=== PATIENT | female | born 1960 | race Caucasian/White ===

== ENCOUNTER → 2019-02-17 | Outpatient (CLI) | payer BC, MEDICARE ==
--- NOTE | 2019-02-17 19:29 | CT ---
EXAMINATION TYPE: CT abdomen pelvis w con DATE OF EXAM: 02/17/2019 HISTORY: abdominal pain and distention. Bloody stools. CT DLP: 1611.2mGycm Automated Exposure Control for Dose Reduction was Utilized. CONTRAST: CT scan of the abdomen and pelvis is performed with IV Contrast, patient injected with 100 mL of Isov ue 300. COMPARISON: None. FINDINGS: LUNG BASES: Slight right hemidiaphragm elevation is incidentally seen LIVER/GB: Gallbladder is surgically absent. No suspicious masses seen within the liver. PANCREAS: No significant abnormality is seen. SPLEEN: No significant abnormality is seen. ADRENALS: No significant abnormality is seen. KIDNEYS: Kidneys enhance and excrete symmetrically without hydronephrosis. BOWEL: Prominent vasa recta surrounding the colon throughout, most notable on the coronal images in t he sigmoid and ascending colon as well as surrounding the cecum. Mild multifocal follow-up thickening of the ascending colon is seen. Air-fluid levels are seen throughout the colon indicative of colonic malabsorption/diarrhea. Multifocal hypodensity eccentric lesions are seen within the rectum measurin g 9 mm on series 3 image 83 on the right and on the left subtly posterior laterally on series 3 image 77 measuring 9 mm also. There is confluence of stool and contrast in the hepatic flexure making excl usion of mass difficult. LYMPH NODES: No greater than 1cm abdominal or pelvic lymph nodes are appreciated. Few nonenlarged lym ph nodes adjacent to the sigmoid colon such as on image 64 in the left pelvis are seen and may be ipppa ctive. OSSEOUS STRUCTURES: Postsurgical changes are seen of the spine with extensive heterotopic ossificatio n after fusion of the an S-shaped scoliosis. No acute osseous pathology is seen. IMPRESSION: Findings suggest mild acute uncomplicated pancolitis. Consider early C. difficile given the diffuse i nvolvement. High density within the rectum could represent small polyps or stool products as there is lack of oral contrast within the rectum. Colonoscopy is recommended after resolution of symptoms. It is difficult to exclude mass of the hepatic flexure versus inspissated stool as there is confluence of stool and contrast at this location.
== END ==
LOC: RADCTMAIN 17:05
PROVIDERS: ATTEND Family Medicine
DX: R10.30 Lower abdominal pain, unspecified (principal); K92.1 Melena
CPT/HCPCS: 74177; 36415; Q9967

== ENCOUNTER 2019-02-18 16:12 | Inpatient (IN) | payer BC, MEDICARE ==
[2019-02-18] MEDS ORDERED: SODIUM CHLORIDE 0.9% 1,000 ML IV ONE (16:44)
[2019-02-18] MEDS ORDERED: ONDANSETRON 4 MG/2 ML VIAL IVP STA (16:45)
--- NOTE | 2019-02-18 16:45 | ED ---
Abdominal Pain HPI - General Source: patient Mode of arrival: ambulatory Limitations: no limitations <Roseann Cheney - Last Filed: 02/18/19 20:55> <Palmira Hurtado - Last Filed: 02/20/19 14:48> - General Chief Complaint: Abdominal Pain Stated Complaint: Dehydration Time Seen by Provider: 02/18/19 16:37 - History of Present Illness Initial Comments: 58yo female with history of fibromyalgia, RA presenting for evaluation emergency department for persistent abdominal pain and vomiting/diarrhea x 1 week. Patient states she has had vomiting times a week. She states she's had diffuse abdominal cramping. Patient states she had outpatient CT performed revealing information that: And was sent to the emergency department for further evaluation and possible admission. Patient states she has had diarrhea, describ es as watery and frequent. Patient states she is concerned about dehydration. Patient denies any melanotic or blood in her stools. Patient denies any hematemesis. Patient denies any fevers, this pain shortness of breath back pain dysuria urgency frequency hematuria. Patient denies any other complaints remaining review of system negative. (Roseann Cheney) - Related Data Home Medications Medication Instructions Recorded Confirmed Baclofen [Lioresal] 10 mg PO HS 02/18/19 02/18/19 DULoxetine HCL [Cymbalta] 60 mg PO DAILY 02/18/19 02/18/19 Dicyclomine HCl 10 mg PO TID 02/18/19 02/18/19 Eluxadoline [Viberzi] 100 mg PO DAILY 02/18/19 02/18/19 Famotidine [Pepcid] 20 mg PO BID 02/18/19 02/18/19 Folic Acid 1 mg PO DAILY 02/18/19 02/18/19 HYDROcodone/APAP 10-325MG [[place] 1 tab PO Q6HR PRN 02/18/19 02/18/19 10-325] Hydrochlorothiazide [Hydrodiuril] 25 mg PO DAILY 02/18/19 02/18/19 Methocarbamol [Robaxin] 750 mg PO DAILY 02/18/19 02/18/19 Metoprolol Tartrate 25 mg PO BID 02/18/19 02/18/19 Pantoprazole Sodium [Protonix] 40 mg PO DAILY 02/18/19 02/18/19 Pramipexole [Mirapex] 0.25 mg PO HS 02/18/19 02/18/19 Pregabalin [Lyrica] 225 mg PO BID 02/18/19 02/18/19 Zolpidem Tartrate [Ambien Cr] 12.5 mg PO HS PRN 02/18/19 02/18/19 clonazePAM [KlonoPIN] 1 mg PO DAILY 02/18/19 02/18/19 metFORMIN HCL [Glucophage] 500 mg PO BID 02/18/19 02/18/19 tiZANidine HCL [Zanaflex] 4 mg PO DAILY 02/18/19 02/18/19 Allergies Allergy/AdvReac Type Severity Reaction Status Date / Time coconut Allergy Unknown Verified 02/18/19 17:15 latex Allergy Rash/Hives Verified 02/18/19 17:15 wool Allergy Rash/Hives Verified 02/18/19 17:15 Review of Systems ROS Other: All systems not noted in ROS Statement are negative. <Roseann Cheney - Last Filed: 02/18/19 20:55> ROS Other: All systems not noted in ROS Statement are negative. <Palmira Hurtado - Last Filed: 02/20/19 14:48> ROS Statement: Those systems with pertinent positive or pertinent negative responses have been documented in the HPI. Past Medical History Past Medical History: Fibromyalgia, Rheumatoid Arthritis (RA) Additional Past Medical History / Comment(s): diverticultis History of Any Multi-Drug Resistant Organisms: None Reported Past Surgical History: Appendectomy, Back Surgery, Bowel Resection, Hysterectomy Additional Past Surgical History / Comment(s): cataract, bladder sling Past Psychological History: No Psychological Hx Reported Smoking Status: Never smoker Past Alcohol Use History: None Reported Past Drug Use History: None Reported <Roseann Cheney - Last Filed: 02/18/19 20:55> General Exam Limitations: no limitations <Roseann Cheney - Last Filed: 02/18/19 20:55> - General Exam Comments Initial Comments: General: The patient is awake and alert Eye: +3 mm pupils are equal, round and reactive to light, extra-ocular movements are intact. No nystagmus. There is normal conjunctiva bilaterally. No signs of icterus. Ears, nose, mouth and throat: There are moist mucous membranes and no oral lesions. Neck: The neck is supple, there is no tenderness or JVD. Cardiovascular: There is a regular rate and rhythm. No murmur, rub or gallop is appreciated. Respiratory: Lungs are clear to auscultation, respirations are non-labored, breath sounds are equal. No wheezes, stridor, rales, or rhonchi. Gastrointestinal: Soft, non-distended, diffusely tender abdomen without masses or organomegaly noted. There is no rebound or guarding present. Bowel sounds are unremarkable Musculoskeletal: Normal ROM, no tenderness. Strength 5/5. Sensation intact. Radial pulses equal bilaterally 2+. Neurological: A&O x 3. CN II-XII intact grossly intact, There are no obvious motor or sensory deficits. Coordination appears grossly intact. Speech is normal. Skin: Skin is warm and dry and no rashes or lesions are noted. Psychiatric: Cooperative, appropriate mood & affect, normal judgment. (Roseann Cheney) Course Vital Signs 02/18/19 02/18/19 02/18/19 16:23 19:00 19:54 Temperature 98.1 F Pulse Rate 86 72 Respiratory 20 16 Rate Blood Pressure 114/73 124/78 108/68 O2 Sat by Pulse 94 L 98 98 Oximetry 02/18/19 21:18 Temperature 98 F Pulse Rate 68 Respiratory 18 Rate Blood Pressure 114/72 O2 Sat by Pulse 95 Oximetry Medical Decision Making - Lab Data Result diagrams: 02/18/19 16:56 02/18/19 16:56 <Roseann Cheney - Last Filed: 02/18/19 20:55> - Lab Data Result diagrams: 02/20/19 07:03 02/20/19 07:03 <Palmira Hurtado - Last Filed: 02/20/19 14:48> - Medical Decision Making 58-year-old female presenting for evaluation for pancolitis. Patient has pancolitis on CT that was obtained yesterday outpatient. Patient states she continues to have diffuse pain that has been ongoing for the past week. Patient denies any bloody stools. Patient denies any melena. Laboratory studies are stable. Patient appears uncomfortable has been requesting multiple doses of IV analgesics. I discussed the CT findings and mentating provider she recommended admission with getting of antibiotics including Rocephin and Flagyl. Patient also was noted to have hypokalemia at 3.0. Patient was given 20 mg of oral as well as 20 mg of IV potassium. Patient is agreeable to admission stating that she does not feel she can go home. Patient be admitted for intractable pain, IV antibiotics and further evaluation pancolitis. (Roseann Cheney) I was available for consultation in the emergency department. The history and physical exam were done by the midlevel provider. I was consulted for this patients care. I reviewed the case with the midlevel provider and based on their presentation of the patient, I agree with the assessment, medical decision making and plan of care as documented. I evaluated the patient myself. She was admitted to Dr. Dalton with GI to consult. (Palmira Hurtado) - Lab Data Lab Results 02/18/19 02/18/19 02/18/19 Range/Units 15:43 16:56 16:56 WBC 7.2 (3.8-10.6) k/uL RBC 4.93 (3.80-5.40) m/uL Hgb 13.9 (11.4-16.0) gm/dL Hct 41.1 (34.0-46.0) % MCV 83.4 D (80.0-100.0) fL MCH 28.3 (25.0-35.0) pg MCHC 33.9 (31.0-37.0) g/dL RDW 15.0 (11.5-15.5) % Plt Count 346 (150-450) k/uL Neutrophils % 65 % Lymphocytes % 21 % Monocytes % 6 % Eosinophils % 3 % Basophils % 2 % Neutrophils # 4.7 (1.3-7.7) k/uL Lymphocytes # 1.5 (1.0-4.8) k/uL Monocytes # 0.4 (0-1.0) k/uL Eosinophils # 0.2 (0-0.7) k/uL Basophils # 0.2 (0-0.2) k/uL Hypochromasia ESR (0-20) mm/hr Sodium 140 (137-145) mmol/L Potassium 3.0 L (3.5-5.1) mmol/L Chloride 100 (98-107) mmol/L Carbon Dioxide 31 H (22-30) mmol/L Anion Gap 9 mmol/L BUN 13 (7-17) mg/dL Creatinine 0.97 (0.52-1.04) mg/dL Est GFR (CKD-EPI)AfAm 76 (>60 ml/min/1.73 sqM) Est GFR (CKD-EPI)NonAf 66 (>60 ml/min/1.73 sqM) Glucose 101 H (74-99) mg/dL Plasma Lactic Acid Jagdish 1.3 (0.7-2.0) mmol/L Calcium 9.1 (8.4-10.2) mg/dL Total Bilirubin 0.2 (0.2-1.3) mg/dL AST 28 (14-36) U/L ALT 28 (9-52) U/L Alkaline Phosphatase 102 (38-126) U/L Total Protein 7.4 (6.3-8.2) g/dL Albumin 4.2 (3.5-5.0) g/dL Amylase 70 (30-110) U/L Lipase 223 (23-300) U/L Urine Color Urine Appearance (Clear) Urine pH (5.0-8.0) Ur Specific Oxly (1.001-1.035) Urine Protein (Negative) Urine Glucose (UA) (Negative) Urine Ketones (Negative) Urine Blood (Negative) Urine Nitrite (Negative) Urine Bilirubin (Negative) Urine Urobilinogen (<2.0) mg/dL Ur Leukocyte Esterase (Negative) Urine RBC (0-5) /hpf Urine WBC (0-5) /hpf Ur Squamous Epith Cells (0-4) /hpf Hyaline Casts (0-2) /lpf Urine Mucus (None) /hpf Stool Occult Blood (Negative) Stool Lactoferrin (NEGATIVE) C. difficile (EIA) Intrp (Negative) 02/18/19 02/18/19 02/19/19 Range/Units 16:56 17:36 07:26 WBC 4.2 (3.8-10.6) k/uL RBC 4.54 (3.80-5.40) m/uL Hgb 12.7 (11.4-16.0) gm/dL Hct 38.4 (34.0-46.0) % MCV 84.6 (80.0-100.0) fL MCH 28.1 (25.0-35.0) pg MCHC 33.2 (31.0-37.0) g/dL RDW 14.7 (11.5-15.5) % Plt Count 306 (150-450) k/uL Neutrophils % 44 % Lymphocytes % 40 % Monocytes % 8 % Eosinophils % 5 % Basophils % 1 % Neutrophils # 1.8 (1.3-7.7) k/uL Lymphocytes # 1.7 (1.0-4.8) k/uL Monocytes # 0.3 (0-1.0) k/uL Eosinophils # 0.2 (0-0.7) k/uL Basophils # 0.0 (0-0.2) k/uL Hypochromasia Slight ESR 17 (0-20) mm/hr Sodium (137-145) mmol/L Potassium (3.5-5.1) mmol/L Chloride (98-107) mmol/L Carbon Dioxide (22-30) mmol/L Anion Gap mmol/L BUN (7-17) mg/dL Creatinine (0.52-1.04) mg/dL Est GFR (CKD-EPI)AfAm (>60 ml/min/1.73 sqM) Est GFR (CKD-EPI)NonAf (>60 ml/min/1.73 sqM) Glucose (74-99) mg/dL Plasma Lactic Acid Jagdish (0.7-2.0) mmol/L Calcium (8.4-10.2) mg/dL Total Bilirubin (0.2-1.3) mg/dL AST (14-36) U/L ALT (9-52) U/L Alkaline Phosphatase (38-126) U/L Total Protein (6.3-8.2) g/dL Albumin (3.5-5.0) g/dL Amylase (30-110) U/L Lipase (23-300) U/L Urine Color Light Red Urine Appearance Clear (Clear) Urine pH 5.5 (5.0-8.0) Ur Specific Oxly 1.031 (1.001-1.035) Urine Protein 1+ H (Negative) Urine Glucose (UA) Negative (Negative) Urine Ketones 1+ H (Negative) Urine Blood Negative (Negative) Urine Nitrite Negative (Negative) Urine Bilirubin Negative (Negative) Urine Urobilinogen 3.0 (<2.0) mg/dL Ur Leukocyte Esterase Small H (Negative) Urine RBC 1 (0-5) /hpf Urine WBC 1 (0-5) /hpf Ur Squamous Epith Cells 2 (0-4) /hpf Hyaline Casts 10 H (0-2) /lpf Urine Mucus Few H (None) /hpf Stool Occult Blood (Negative) Stool Lactoferrin (NEGATIVE) C. difficile (EIA) Intrp Negative (Negative) 02/19/19 02/19/19 02/19/19 Range/Units 07:26 12:27 14:00 WBC (3.8-10.6) k/uL RBC (3.80-5.40) m/uL Hgb (11.4-16.0) gm/dL Hct (34.0-46.0) % MCV (80.0-100.0) fL MCH (25.0-35.0) pg MCHC (31.0-37.0) g/dL RDW (11.5-15.5) % Plt Count (150-450) k/uL Neutrophils % % Lymphocytes % % Monocytes % % Eosinophils % % Basophils % % Neutrophils # (1.3-7.7) k/uL Lymphocytes # (1.0-4.8) k/uL Monocytes # (0-1.0) k/uL Eosinophils # (0-0.7) k/uL Basophils # (0-0.2) k/uL Hypochromasia ESR (0-20) mm/hr Sodium 143 (137-145) mmol/L Potassium 3.7 (3.5-5.1) mmol/L Chloride 103 (98-107) mmol/L Carbon Dioxide 35 H (22-30) mmol/L Anion Gap 5 mmol/L BUN 8 (7-17) mg/dL Creatinine 0.79 (0.52-1.04) mg/dL Est GFR (CKD-EPI)AfAm >90 (>60 ml/min/1.73 sqM) Est GFR (CKD-EPI)NonAf 85 (>60 ml/min/1.73 sqM) Glucose 90 (74-99) mg/dL Plasma Lactic Acid Jagdish (0.7-2.0) mmol/L Calcium 8.6 (8.4-10.2) mg/dL Total Bilirubin 0.3 (0.2-1.3) mg/dL AST 23 (14-36) U/L ALT 23 (9-52) U/L Alkaline Phosphatase 79 (38-126) U/L Total Protein 6.2 L (6.3-8.2) g/dL Albumin 3.4 L (3.5-5.0) g/dL Amylase (30-110) U/L Lipase (23-300) U/L Urine Color Light Yellow Urine Appearance Clear (Clear) Urine pH 6.0 (5.0-8.0) Ur Specific Oxly 1.006 (1.001-1.035) Urine Protein Negative (Negative) Urine Glucose (UA) Negative (Negative) Urine Ketones Negative (Negative) Urine Blood Negative (Negative) Urine Nitrite Negative (Negative) Urine Bilirubin Negative (Negative) Urine Urobilinogen <2.0 (<2.0) mg/dL Ur Leukocyte Esterase Negative (Negative) Urine RBC (0-5) /hpf Urine WBC (0-5) /hpf Ur Squamous Epith Cells (0-4) /hpf Hyaline Casts (0-2) /lpf Urine Mucus (None) /hpf Stool Occult Blood Negative (Negative) Stool Lactoferrin (NEGATIVE) C. difficile (EIA) Intrp (Negative) 02/19/19 Range/Units 14:00 WBC (3.8-10.6) k/uL RBC (3.80-5.40) m/uL Hgb (11.4-16.0) gm/dL Hct (34.0-46.0) % MCV (80.0-100.0) fL MCH (25.0-35.0) pg MCHC (31.0-37.0) g/dL RDW (11.5-15.5) % Plt Count (150-450) k/uL Neutrophils % % Lymphocytes % % Monocytes % % Eosinophils % % Basophils % % Neutrophils # (1.3-7.7) k/uL Lymphocytes # (1.0-4.8) k/uL Monocytes # (0-1.0) k/uL Eosinophils # (0-0.7) k/uL Basophils # (0-0.2) k/uL Hypochromasia ESR (0-20) mm/hr Sodium (137-145) mmol/L Potassium (3.5-5.1) mmol/L Chloride (98-107) mmol/L Carbon Dioxide (22-30) mmol/L Anion Gap mmol/L BUN (7-17) mg/dL Creatinine (0.52-1.04) mg/dL Est GFR (CKD-EPI)AfAm (>60 ml/min/1.73 sqM) Est GFR (CKD-EPI)NonAf (>60 ml/min/1.73 sqM) Glucose (74-99) mg/dL Plasma Lactic Acid Jagdish (0.7-2.0) mmol/L Calcium (8.4-10.2) mg/dL Total Bilirubin (0.2-1.3) mg/dL AST (14-36) U/L ALT (9-52) U/L Alkaline Phosphatase (38-126) U/L Total Protein (6.3-8.2) g/dL Albumin (3.5-5.0) g/dL Amylase (30-110) U/L Lipase (23-300) U/L Urine Color Urine Appearance (Clear) Urine pH (5.0-8.0) Ur Specific Oxly (1.001-1.035) Urine Protein (Negative) Urine Glucose (UA) (Negative) Urine Ketones (Negative) Urine Blood (Negative) Urine Nitrite (Negative) Urine Bilirubin (Negative) Urine Urobilinogen (<2.0) mg/dL Ur Leukocyte Esterase (Negative) Urine RBC (0-5) /hpf Urine WBC (0-5) /hpf Ur Squamous Epith Cells (0-4) /hpf Hyaline Casts (0-2) /lpf Urine Mucus (None) /hpf Stool Occult Blood (Negative) Stool Lactoferrin POSITIVE H (NEGATIVE) C. difficile (EIA) Intrp (Negative) Disposition Is patient prescribed a controlled substance at d/c from ED?: No Time of Disposition: 20:50 Decision to Admit Reason: Admit from EC Decision Date: 02/18/19 Decision Time: 20:50 <Roseann Cheney - Last Filed: 02/18/19 20:55> <Palmira Hurtado - Last Filed: 02/20/19 14:48> Clinical Impression: Pancolitis, Intractable abdominal pain Disposition: ADMITTED IP TO THIS [facility] Condition: Stable
[2019-02-18] MEDS ORDERED: MORPHINE SULFATE 2 MG/ML SYRINGE IVP STA (17:14)
[2019-02-18 17:17] LABS: Basophils # (A) 0.2 k/uL (0-0.2); Basophils % (A) 2 %; Eosinophils # (A) 0.2 k/uL (0-0.7); Eosinophils % (A) 3 %; HCT 41.1 % (34.0-46.0); HGB 13.9 gm/dL (11.4-16.0); Lymphocytes # (A) 1.5 k/uL (1.0-4.8); Lymphocytes % (A) 21 %; MCH 28.3 pg (25.0-35.0); MCHC 33.9 g/dL (31.0-37.0); Mean Platelet Volume 6.4; Monocytes # (A) 0.4 k/uL (0-1.0); Monocytes % (A) 6 %; Neutrophils # (A) 4.7 k/uL (1.3-7.7); Neutrophils % (A) 65 %; Platelet Count 346 k/uL (150-450); RBC 4.93 m/uL (3.80-5.40); WBC 7.2 k/uL (3.8-10.6)
[2019-02-18 17:23] LABS: Appearance,Urine Clear (Clear); Bilirubin,Urine Negative (Negative); Blood,Urine Negative (Negative); Color,Urine Light Red; Glucose,Urine (UA) Negative (Negative); Hyaline Casts,Urine 10 /lpf (0-2); Ketones,Urine 1+ (Negative); Leukocyte Esterase,Urine Small (Negative); Mucus,Urine Few /hpf; Nitrite,Urine Negative (Negative); PH, Urine 5.5 (5.0-8.0); Protein,Urine 1+ (Negative); RBC,Urine 1 /hpf (0-5); Specific Gravity,Urine 1.031 (1.001-1.035); Squamous Epithelial Cell,Urine 2 /hpf (0-4); WBC,Urine 1 /hpf (0-5)
[2019-02-18 17:24] LABS: MCV 83.4 fL (80.0-100.0)
[2019-02-18 17:30] LABS: Albumin 4.2 g/dL (3.5-5.0); Calcium 9.1 mg/dL (8.4-10.2); Total Bilirubin 0.2 mg/dL (0.2-1.3); Total Protein 7.4 g/dL (6.3-8.2)
[2019-02-18] MEDS ORDERED: POTASSIUM CHLORIDE ER 20 MEQ TAB.ER PO STA (18:08)
[2019-02-18] MEDS ORDERED: POTASSIUM CHLORIDE 20 MEQ in WATER FOR INJECTION 1 100ML.BAG IVPB STA (19:04)
[2019-02-18] MEDS ORDERED: MORPHINE SULFATE 4 MG/ML SYRINGE IVP STA (19:24)
[2019-02-18] MEDS ORDERED: metroNIDAZOLE-NS PMX 500 MG in SALINE 1 100ML.BAG IVPB STA (20:04)
[2019-02-18] MEDS ORDERED: NALOXONE 0.4 MG/ML 1 ML VIAL IV PRN (20:56)
[2019-02-18] MEDS: SODIUM CHLORIDE 0.9% 1,000 ML IV SCH (21:17)
[2019-02-18 22:18] VITALS: BMI 35.4
[2019-02-18] MEDS: DICYCLOMINE 10 MG CAP PO SCH (23:14)
[2019-02-18] MEDS: ACETAMINOPHEN TAB 500 MG TAB PO PRN (23:14)
[2019-02-18] MEDS: ZOLPIDEM 10 MG TAB PO SCH (23:14)
[2019-02-18] MEDS: FAMOTIDINE 20 MG TAB PO SCH (23:14)
[2019-02-18] MEDS: BACLOFEN 10 MG TAB PO SCH (23:14)
[2019-02-18] MEDS: PRAMIPEXOLE 0.25 MG TAB PO SCH (23:15)
[2019-02-18] MEDS: METOPROLOL TARTRATE 25 MG TAB PO SCH (23:15)
[2019-02-18] MEDS: PREGABALIN 75 MG CAP PO SCH (23:15)
[2019-02-18] MEDS: FOLIC ACID 1 MG TAB PO SCH (23:15)
[2019-02-18] MEDS ORDERED: clonazePAM 1 MG TAB PO SCH (23:15)
[2019-02-19] MEDS: MORPHINE SULFATE 4 MG/ML SYRINGE IV PRN ×5 (03:38→21:50)
[2019-02-19] MEDS: SODIUM CHLORIDE 0.9% 1,000 ML IV SCH (03:43)
[2019-02-19] MEDS: DICYCLOMINE 10 MG CAP PO SCH ×3 (07:36→21:49)
[2019-02-19] MEDS: METOPROLOL TARTRATE 25 MG TAB PO SCH ×2 (07:37→20:49)
[2019-02-19] MEDS: PREGABALIN 75 MG CAP PO SCH ×2 (07:37→21:31)
[2019-02-19] MEDS: FOLIC ACID 1 MG TAB PO SCH (07:37)
[2019-02-19] MEDS: FAMOTIDINE 20 MG TAB PO SCH ×2 (07:37→20:49)
[2019-02-19] MEDS: HYDROCHLOROTHIAZIDE 25 MG TAB PO SCH (07:37)
[2019-02-19] MEDS: Eluxadoline [Viberzi] 100 MG PO SCH (07:48)
[2019-02-19 07:59] LABS: Basophils % (A) 1 %; Eosinophils # (A) 0.2 k/uL (0-0.7); Eosinophils % (A) 5 %; HCT 38.4 % (34.0-46.0); HGB 12.7 gm/dL (11.4-16.0); Hypochromasia Slight; Lymphocytes # (A) 1.7 k/uL (1.0-4.8); Lymphocytes % (A) 40 %; MCH 28.1 pg (25.0-35.0); MCHC 33.2 g/dL (31.0-37.0); MCV 84.6 fL (80.0-100.0); Mean Platelet Volume 5.7; Monocytes # (A) 0.3 k/uL (0-1.0); Monocytes % (A) 8 %; Neutrophils # (A) 1.8 k/uL (1.3-7.7); Neutrophils % (A) 44 %; Platelet Count 306 k/uL (150-450); RBC 4.54 m/uL (3.80-5.40); RDW 14.7 % (11.5-15.5); WBC 4.2 k/uL (3.8-10.6)
[2019-02-19 08:03] LABS: ALT 23 U/L (9-52); AST 23 U/L (14-36); African American GFR (CKD) >90 (>60 ml/min/1.73 sqM); Albumin 3.4 g/dL (3.5-5.0); Alkaline Phosphatase 79 U/L (38-126); Anion Gap 5 mmol/L; Blood Urea Nitrogen 8 mg/dL (7-17); Calcium 8.6 mg/dL (8.4-10.2); Carbon Dioxide 35 mmol/L (22-30); Chloride 103 mmol/L (98-107); Glucose 90 mg/dL (74-99); Potassium 3.7 mmol/L (3.5-5.1); Sodium 143 mmol/L (137-145); Total Bilirubin 0.3 mg/dL (0.2-1.3); Total Protein 6.2 g/dL (6.3-8.2)
[2019-02-19] MEDS ORDERED: METHOCARBAMOL 750 MG TAB PO SCH (09:00)
[2019-02-19] MEDS ORDERED: metFORMIN 500 MG TAB PO SCH (09:00)
[2019-02-19] MEDS ORDERED: tiZANidine 4 MG TAB PO SCH (09:00)
[2019-02-19] MEDS ORDERED: DULoxetine HCL 60 MG CAPSULE.DR PO SCH (09:00)
[2019-02-19] MEDS ORDERED: PANTOPRAZOLE 40 MG TABLET PO SCH (09:00)
[2019-02-19 09:41] LABS: Erythrocyte Sedimentation Rate 17 mm/hr (0-20)
--- NOTE | 2019-02-19 10:55 | P.CONS ---
History of Present Illness - Reason for Consult Consult date: 02/19/19 Pancolitis Requesting physician: Ilda Dalton - Chief Complaint Abdominal pain - History of Present Illness 58-year-old female admitted with acute abdominal pain nausea vomiting diarrhea 2 week. Abdominal pain is crampy diffusely across the mid to lower abdomen. Diarrhea dark gritty like upeards to 20-25x day. Denies hematemesis hematochezia or melena. CT A/P 02/17/2019 reported mild acute uncomplicated pancolitis. High density within the rectum could represent small polyps or stool products lack of oral contrast within the rectum. Difficult to exclude mass in the hepatic flexure versus instituted dictated stool as there is confluence of stool and contrast at this location. [facility] familial colon cancer brother in his early 50s in father in his 80s. Last colonoscopy 2-3 years ago out of town by /[place]; 8 polyps removed she was advised for repeat screening last year she has not since rescheduled. C. diff negative. Still reporting diffuse lower abdominal cramping tenderness. She had 4 BMs x 12 hours without blood. White count 7.2. Hemoglobin 13.9. Potassium 3. BUN 13. Creatinine 0.9. LFTs within normal limits. Review of Systems Constitutional: Denies fever, chills, sweats, weight gain, or loss. HEENT: Negative for migraines, blurred vision or loss, earaches, drainage, tinni tus, oral mucosal lesions, dysphagia, or odynophagia. CARDIAC: Negative for chest pain, arrhythmias, or palpitation. RESPIRATORY: Negative for shortness of breath, hemoptysis, cough, or sputum production. GI: See HPI for pertinent findings. : Negative for hematuria, urgency, frequency, polyuria, or dysuria. GYNc: Denies possibility of . Negative vaginal discharge. MUSCULOSKELETAL: Negative for muscle aches, swelling, arthritis, and arthralgias. NEUROLOGIC: Negative for stroke or TIA. ENDOCRINE: Negative for thyroid problems. SKIN: Negative for rash or itching. PSYCHIATRIC: Negative history for depression and anxiety Past Medical History Past Medical History: Fibromyalgia, GERD/Reflux, Rheumatoid Arthritis (RA) Additional Past Medical History / Comment(s): diverticultis History of Any Multi-Drug Resistant Organisms: C-DIFF Year Discovered:: 02/17/2018 MDRO Source:: stool Past Surgical History: Appendectomy, Back Surgery, Cholecystectomy, Hysterectomy Additional Past Surgical History / Comment(s): cataract, bladder sling Past Anesthesia/Blood Transfusion Reactions: No Reported Reaction Past Psychological History: No Psychological Hx Reported Smoking Status: Former smoker Past Alcohol Use History: None Reported Past Drug Use History: None Reported - Past Family History Father Family Medical History: Cancer Additional Family Medical History / Comment(s): colon cancer Brother(s) Family Medical History: Cancer Additional Family Medical History / Comment(s): colon cancer Mother Family Medical History: Cancer Additional Family Medical History / Comment(s): metastatic lung cancer Medications and Allergies Home Medications Medication Instructions Recorded Confirmed Type Baclofen [Lioresal] 10 mg PO HS 02/18/19 02/18/19 History DULoxetine HCL [Cymbalta] 60 mg PO DAILY 02/18/19 02/18/19 History Dicyclomine HCl 10 mg PO TID 02/18/19 02/18/19 History Eluxadoline [Viberzi] 100 mg PO DAILY 02/18/19 02/18/19 History Famotidine [Pepcid] 20 mg PO BID 02/18/19 02/18/19 History Folic Acid 1 mg PO DAILY 02/18/19 02/18/19 History HYDROcodone/APAP 10-325MG [[place] 1 tab PO Q6HR PRN 02/18/19 02/18/19 History 10-325] Hydrochlorothiazide [Hydrodiuril] 25 mg PO DAILY 02/18/19 02/18/19 History Methocarbamol [Robaxin] 750 mg PO DAILY 02/18/19 02/18/19 History Metoprolol Tartrate 25 mg PO BID 02/18/19 02/18/19 History Pantoprazole Sodium [Protonix] 40 mg PO DAILY 02/18/19 02/18/19 History Pramipexole [Mirapex] 0.25 mg PO HS 02/18/19 02/18/19 History Pregabalin [Lyrica] 225 mg PO BID 02/18/19 02/18/19 History Zolpidem Tartrate [Ambien Cr] 12.5 mg PO HS PRN 02/18/19 02/18/19 History clonazePAM [KlonoPIN] 1 mg PO DAILY 02/18/19 02/18/19 History metFORMIN HCL [Glucophage] 500 mg PO BID 02/18/19 02/18/19 History tiZANidine HCL [Zanaflex] 4 mg PO DAILY 02/18/19 02/18/19 History Allergies Allergy/AdvReac Type Severity Reaction Status Date / Time coconut Allergy Unknown Verified 02/18/19 17:15 latex Allergy Rash/Hives Verified 02/18/19 17:15 wool Allergy Rash/Hives Verified 02/18/19 17:15 Physical Exam Vitals: Vital Signs Temp Pulse Pulse Resp BP BP Pulse Ox 02/19/19 05:09 97.6 F 63 18 118/60 96 02/18/19 22:16 97.6 F 69 18 122/66 95 02/18/19 21:18 98 F 68 18 114/72 95 02/18/19 19:54 108/68 98 02/18/19 19:00 72 16 124/78 98 02/18/19 16:23 98.1 F 86 20 114/73 94 L Intake and Output 02/18/19 02/19/19 02/19/19 22:59 06:59 14:59 Other: # Voids 1 Weight 90.718 kg General appearance: The patient is alert, oriented, in no acute distress. HET: Head is normocephalic and atraumatic. Pupils are equal and reactive. Oropharynx is clear without lesions. Neck: Supple without lymphadenopathy. Trachea midline. Heart: S1 S2. Regular rate and rhythm. Lungs: No crackles or wheezes are heard. Abdomen: Soft, tenderness in the bilateral lower abdomen, nondistended with bowel sounds. No peritoneal signs. No palpable organomegaly or masses. Extremities: Normal skin color and turgor. No cyanosis, rash, ulceration, clubbing, or edema. Radial and pedal pulses are 2/4 bilaterally. Neurological: No focal deficits. Strength and sensation are grossly intact. Results CBC & Chem 7: 02/19/19 07:26 02/19/19 07:26 Labs: Abnormal Lab Results - Last 24 Hours (Table) 02/18/19 02/18/19 Range/Units 16:56 16:56 Potassium 3.0 L (3.5-5.1) mmol/L Carbon Dioxide 31 H (22-30) mmol/L Glucose 101 H (74-99) mg/dL Urine Protein 1+ H (Negative) Urine Ketones 1+ H (Negative) Ur Leukocyte Esterase Small H (Negative) Hyaline Casts 10 H (0-2) /lpf Urine Mucus Few H (None) /hpf CT scan - abdomen: report reviewed (Dr. De La Cruz) Assessment and Plan (1) Abdominal pain Narrative/Plan: 58 year old female with two-week history of acute nonbloody nausea vomiting diarrhea abdominal pain. CT abdomen and pelvis 02/17/2019 reported uncompli cated mild pancolitis however underlying mass of the hepatic flexure versus inspissated stool cannot be excluded. Colonoscopy 2-3 years ago a polyps removed per patient history. Patient was due for repeat colonoscopy 1 year ago. Current Visit: Yes Status: Acute Code(s): R10.9 - UNSPECIFIED ABDOMINAL PAIN SNOMED Code(s): 61149182 (2) Nausea vomiting and diarrhea Current Visit: Yes Status: Acute Code(s): R11.2 - NAUSEA WITH VOMITING, UNSPECIFIED; R19.7 - DIARRHEA, UNSPECIFIED SNOMED Code(s): 0276812 (3) Pancolitis Current Visit: Yes Status: Acute Code(s): K51.00 - ULCERATIVE (CHRONIC) PANCOLITIS WITHOUT COMPLICATIONS SNOMED Code(s): 115961141 (4) Family hx of colon cancer Current Visit: Yes Status: Acute Code(s): Z80.0 - FAMILY HISTORY OF MALIGNANT NEOPLASM OF DIGESTIVE ORGANS SNOMED Code(s): 702326193 Plan: 1. Supportive measures. Broad-spectrum antibiotics. GI prophylaxis. Stool studies. EGD/colonoscopy tomorrow. We'll continue to follow with you. The senior market intelligence consultant has discussed the risks, benefits and alternative therapies for the above-mentioned procedure and for both sedation/analgesia as well as necessary blood product administration, if indicated, as they pertain to this patient. The patient has indicated understanding and acceptance of the risks and procedures discussed. Thank you for this kind referral and the opportunity to participate in the care of your patient. This consultation was discussed with Dr. De La Cruz. The impression and plan of care have been directed as dictated.
[2019-02-19] MEDS: ACETAMINOPHEN TAB 500 MG TAB PO PRN (11:32)
[2019-02-19] MEDS ORDERED: BISACODYL 5 MG TABLET.DR PO STA (11:32)
--- NOTE | 2019-02-19 12:06 | P.HPIM ---
History of Present Illness H&P Date: 02/19/19 Chief Complaint: Abdominal pain with diarrhea and vomiting 2 weeks This is a 58-year-old female, patient of Dr. Cortez. She has a known past medical history of fibroid myalgia, rheumatoid arthritis, diverticulitis, diabetes mellitus, hypertension, GERD, stomach ulcers, uterine and ovarian cancer status post a total hysterectomy, melanoma. Patient has a strong family history of colon cancer both her brother and father had colon cancer. Brother at age 52. Patient presents to the emergency room with abnormal CAT scan findings. CAT scan had showed evidence of mild acute uncomplicated pancolitis. High density within the rectum could represent small polyps or stool products as there is lack of oral contrast within the rectum. It is difficult to exclude mass of the hepatic flexure versus and inspissated stool is there is confluence of stool and contrast at this location. Patient reports symptoms nausea, vomiting and diarrhea 2 weeks. She's having about 20 stools a day. She is reporting the color to be a dark black. And a few days ago she had noted some blood present in the stool. She denies any hematemesis. She reports anytime she eats anything she has both vomiting and diarrhea. She's been started on Rocephin and Flagyl for the pancolitis. GI has been consulted. White count is normal. Hemoglobin has dropped from 13.9-12.7. Sed rate normal at 17. C. diff is negative. Patient denies any chest pain or shortness of breath. Denies any burning with urination. She is using morphine and [place] as needed for pain. She is complaining of a mild headache. Her last EGD and colonoscopy was about 3 years ago there were multiple polyps found, testing was completed at [facility]. Review of Systems Please refer to HPI otherwise unremarkable Past Medical History Past Medical History: Fibromyalgia, GERD/Reflux, Rheumatoid Arthritis (RA) Additional Past Medical History / Comment(s): diverticultis History of Any Multi-Drug Resistant Organisms: C-DIFF Date of last positivie culture/infection: 02/17/2018 MDRO Source:: stool Past Surgical History: Appendectomy, Back Surgery, Cholecystectomy, Hysterectomy Additional Past Surgical History / Comment(s): cataract, bladder sling Past Anesthesia/Blood Transfusion Reactions: No Reported Reaction Past Psychological History: No Psychological Hx Reported Smoking Status: Former smoker Past Alcohol Use History: None Reported Past Drug Use History: None Reported - Past Family History Father Family Medical History: Cancer Additional Family Medical History / Comment(s): colon cancer Brother(s) Family Medical History: Cancer Additional Family Medical History / Comment(s): colon cancer Mother Family Medical History: Cancer Additional Family Medical History / Comment(s): metastatic lung cancer Medications and Allergies Home Medications Medication Instructions Recorded Confirmed Type Baclofen [Lioresal] 10 mg PO HS 02/18/19 02/18/19 History DULoxetine HCL [Cymbalta] 60 mg PO DAILY 02/18/19 02/18/19 History Dicyclomine HCl 10 mg PO TID 02/18/19 02/18/19 History Eluxadoline [Viberzi] 100 mg PO DAILY 02/18/19 02/18/19 History Famotidine [Pepcid] 20 mg PO BID 02/18/19 02/18/19 History Folic Acid 1 mg PO DAILY 02/18/19 02/18/19 History HYDROcodone/APAP 10-325MG [[place] 1 tab PO Q6HR PRN 02/18/19 02/18/19 History 10-325] Hydrochlorothiazide [Hydrodiuril] 25 mg PO DAILY 02/18/19 02/18/19 History Methocarbamol [Robaxin] 750 mg PO DAILY 02/18/19 02/18/19 History Metoprolol Tartrate 25 mg PO BID 02/18/19 02/18/19 History Pantoprazole Sodium [Protonix] 40 mg PO DAILY 02/18/19 02/18/19 History Pramipexole [Mirapex] 0.25 mg PO HS 02/18/19 02/18/19 History Pregabalin [Lyrica] 225 mg PO BID 02/18/19 02/18/19 History Zolpidem Tartrate [Ambien Cr] 12.5 mg PO HS PRN 02/18/19 02/18/19 History clonazePAM [KlonoPIN] 1 mg PO DAILY 02/18/19 02/18/19 History metFORMIN HCL [Glucophage] 500 mg PO BID 02/18/19 02/18/19 History tiZANidine HCL [Zanaflex] 4 mg PO DAILY 02/18/19 02/18/19 History Allergies Allergy/AdvReac Type Severity Reaction Status Date / Time coconut Allergy Unknown Verified 02/18/19 17:15 latex Allergy Rash/Hives Verified 02/18/19 17:15 wool Allergy Rash/Hives Verified 02/18/19 17:15 Physical Exam Vitals: Vital Signs Temp Pulse Pulse Resp BP BP Pulse Ox 02/19/19 05:09 97.6 F 63 18 118/60 96 02/18/19 22:16 97.6 F 69 18 122/66 95 02/18/19 21:18 98 F 68 18 114/72 95 02/18/19 19:54 108/68 98 02/18/19 19:00 72 16 124/78 98 02/18/19 16:23 98.1 F 86 20 114/73 94 L Intake and Output 02/18/19 02/19/19 02/19/19 22:59 06:59 14:59 Other: # Voids 1 Weight 90.718 kg Head normocephalic Neck supple Lungs clear to auscultation bilaterally no wheezing or crackles Heart regular rate and rhythm S1-S2, no rub or gallop Abdomen is soft diffuse lower abdominal tenderness nondistended positive bowel sounds no hepatosplenomegaly Extremities no edema Neuro alert and orientated to 3 Results CBC & Chem 7: 02/19/19 07:26 02/19/19 07:26 Labs: Abnormal Lab Results - Last 24 Hours (Table) 02/18/19 02/18/19 02/19/19 Range/Units 16:56 16:56 07:26 Potassium 3.0 L (3.5-5.1) mmol/L Carbon Dioxide 31 H 35 H (22-30) mmol/L Glucose 101 H (74-99) mg/dL Total Protein 6.2 L (6.3-8.2) g/dL Albumin 3.4 L (3.5-5.0) g/dL Urine Protein 1+ H (Negative) Urine Ketones 1+ H (Negative) Ur Leukocyte Esterase Small H (Negative) Hyaline Casts 10 H (0-2) /lpf Urine Mucus Few H (None) /hpf Thrombosis Risk Factor Assmnt - Choose All That Apply Any of the Below Risk Factors Present?: Yes Each Factor Represents 1 point: Age 41-60 years Other Risk Factors: No Other congenital or acquired thrombophilia - If yes, enter type in comment: No Thrombosis Risk Factor Assessment Total Risk Factor Score: 1 Thrombosis Risk Factor Assessment Level: Low Risk Assessment and Plan Assessment: 1. Abdominal pain with nausea vomiting and diarrhea: Likely secondary to Chu colitis which was noted on CAT scan. Stool studies pending. C. diff negative. Continue with IV fluid hydration. Rocephin and Flagyl have been added. GI consult. They're planning EGD and colonoscopy tomorrow. Check stool for occult blood. Patient reporting black stools as well as a couple of bright red blood stools a few days ago. Add Zofran as needed for nausea and vomiting. Change Protonix to IV 40 mg daily. Continue the morphine and [place] as needed for pain control 2. Pancolitis continue with Rocephin and Flagyl 3. Abdominal CAT scan findings cannot exclude mass of the hepatic flexure versus inspissated stool cannot be excluded. GI following. Patient scheduled for endoscopy tomorrow 4. Hypokalemia: Potassium of 3 on admission likely secondary to diarrhea. Also will check a magnesium level. Potassium is now 3.7 after supplement 5. UTI: Check urine for culture. Continue Rocephin 6. Family history of colon cancer: Both brother and father with colon cancer 7. History of rheumatoid arthritis 8. History of fibromyalgia 7. Diabetes mellitus type 2: Hold metformin during hospitalization. Add sliding scale coverage 8. History of GERD continue Protonix 9. History of stomach ulcers continue Protonix 10. History of uterine and ovarian cancer status post hysterectomy and oophorectomy 11. Essential hypertension continue the hydrochlorothiazide and metoprolol GI prophylaxis Protonix and DVT prophylaxis SCDs Time with Patient: Greater than 30 (Greater than 50% of the total time spent in counseling and coordination of care.I performed an examination of the patient and discussed their management with the physician Barge Captain. I have reviewed the Physician Barge Captain's notes and agree with the documented findings and plan of care)
[2019-02-19] MEDS: INSULIN ASPART (NovoLOG) 100 UNIT/ML VIAL SQ SCH ×3 (13:15→21:30)
[2019-02-19] MEDS: PANTOPRAZOLE 40 MG/10 ML VIAL IVP SCH (13:16)
[2019-02-19 13:29] LABS: Appearance,Urine Clear (Clear); Bilirubin,Urine Negative (Negative); Blood,Urine Negative (Negative); Color,Urine Light Yellow; Glucose,Urine (UA) Negative (Negative); Ketones,Urine Negative (Negative); Leukocyte Esterase,Urine Negative (Negative); Nitrite,Urine Negative (Negative); Protein,Urine Negative (Negative); Specific Gravity,Urine 1.006 (1.001-1.035); Urobilinogen,Urine <2.0 mg/dL (<2.0)
[2019-02-19] MEDS: metroNIDAZOLE-NS PMX 500 MG in SALINE 1 100ML.BAG IVPB SCH ×2 (14:21→20:04)
[2019-02-19] MEDS ORDERED: PEG 3350-NA SULF,BICARB,CL/KCL 4,000 ML BOTTLE PO ONE (15:00)
[2019-02-19] MEDS: ONDANSETRON 4 MG/2 ML VIAL IVP PRN (15:55)
[2019-02-19] MEDS: HYDROcodone/APAP 10-325MG 1 EACH TAB PO PRN (19:36)
[2019-02-19] MEDS: BACLOFEN 10 MG TAB PO SCH (20:49)
[2019-02-19] MEDS: DULoxetine HCL 60 MG CAPSULE.DR PO SCH (20:49)
[2019-02-19] MEDS: METHOCARBAMOL 750 MG TAB PO SCH (20:51)
[2019-02-19] MEDS: tiZANidine 4 MG TAB PO SCH (20:51)
[2019-02-19] MEDS: PRAMIPEXOLE 0.25 MG TAB PO SCH (20:52)
[2019-02-19 21:24] LABS: Glucose,Whole Blood 90 mg/dL (75-99)
[2019-02-19] MEDS: clonazePAM 1 MG TAB PO SCH (21:31)
[2019-02-19] MEDS: ZOLPIDEM 10 MG TAB PO SCH (21:31)
[2019-02-20] MEDS: SODIUM CHLORIDE 0.9% 1,000 ML IV SCH ×2 (00:09→16:53)
[2019-02-20 00:15] LABS: HCT 33.8 % (34.0-46.0); HGB 11.4 gm/dL (11.4-16.0); Hypochromasia Slight; MCH 28.5 pg (25.0-35.0); MCHC 33.7 g/dL (31.0-37.0); MCV 84.5 fL (80.0-100.0); Mean Platelet Volume 5.7; Platelet Count 303 k/uL (150-450); RBC 3.99 m/uL (3.80-5.40); RDW 14.6 % (11.5-15.5); WBC 5.6 k/uL (3.8-10.6)
[2019-02-20] MEDS: metroNIDAZOLE-NS PMX 500 MG in SALINE 1 100ML.BAG IVPB SCH ×2 (03:22→11:50)
[2019-02-20] MEDS: MORPHINE SULFATE 4 MG/ML SYRINGE IV PRN ×4 (03:34→19:51)
[2019-02-20 06:53] LABS: Glucose,Whole Blood 82 mg/dL (75-99)
[2019-02-20] MEDS ORDERED: PROPOFOL 10 MG/ML 20 ML VIAL IV ONE (07:25)
[2019-02-20] MEDS ORDERED: LIDOCAINE 1% INJ 10MG/ML (20 ML MDV) ONE (07:25)
[2019-02-20] MEDS ORDERED: IV FLUID CONTINUATION 1,000 ML IV ONE (07:31)
[2019-02-20 07:44] LABS: ALT 24 U/L (9-52); AST 22 U/L (14-36); African American GFR (CKD) >90 (>60 ml/min/1.73 sqM); Albumin 3.1 g/dL (3.5-5.0); Alkaline Phosphatase 71 U/L (38-126); Anion Gap 3 mmol/L; Blood Urea Nitrogen 4 mg/dL (7-17); Calcium 8.3 mg/dL (8.4-10.2); Carbon Dioxide 34 mmol/L (22-30); Chloride 103 mmol/L (98-107); Glucose 87 mg/dL (74-99); Magnesium 1.9 mg/dL (1.6-2.3); Potassium 3.1 mmol/L (3.5-5.1); Sodium 140 mmol/L (137-145); Total Bilirubin 0.2 mg/dL (0.2-1.3); Total Protein 5.6 g/dL (6.3-8.2)
[2019-02-20] MEDS: INSULIN ASPART (NovoLOG) 100 UNIT/ML VIAL SQ SCH ×2 (07:57→11:43)
[2019-02-20] MEDS: HYDROCHLOROTHIAZIDE 25 MG TAB PO SCH (07:59)
--- NOTE | 2019-02-20 08:08 | P.PCN ---
Date of Procedure: 02/20/19 Procedure(s) Performed: Brief history: Patient is a pleasant 58-year-old white female, admitted hospital with diarrhea of 2 weeks duration. She has been complaining of lower abdominal pain associated with 10-15 the watery bowel movements with blood or mucus. She has to studies for C. diff toxin a was negative. She had CT of abdomen and pelvis done that showed diffuse pancolitis and questionable lesion in the hepatic flexure and hence she is scheduled for an upper endoscopy as well as colonoscopy as a part of evaluation of upper symptoms. Procedure performed: Esophagogastroduodenoscopy with biopsy Colonoscopy Preoperative diagnosis: Anesthesia: MAC Procedure: After informed consent was obtained from the patient was brought into the endoscopy unit and IV sedation was administered by anesthesia under continuous monitoring. Initially upper endoscopy was done. The Olympus GF 160 video endo scope was inserted inserted into the mouth and esophagus intubated without any difficulty and was gradually advanced into the stomach and duodenum and carefully examined. The bulb and second part of the duodenum appeared normal. Biopsies were done from the duodenum to rule out celiac disease. The scope was then withdrawn into the stomach adequately insufflated with air and upon careful examination the antrum had mild gastritis and biopsies were done from this area. The body, cardia and fundus appeared normal. The scope was then withdrawn into the esophagus. The GE junction was located at 40 cm to the incisors. It appeared regular with no erythema erosions or ulcerations. Rest of the esophagus appeared normal. Patient tolerated the procedure well. At this time the patient continued to remain sedation. Initial digital rectal examination was normal. Olympus CF 160 video colonoscope was then inserted into the rectum and gradually advanced to the cecum without any difficulty. Careful examination was performed as the scope was gradually being withdrawn. Terminal ileum was intubated and appeared normal. Biopsies were done from this area. The prep was excellent. The cecum, ascending colon, transverse colon, descending colon, sigmoid colon normal. Random biopsies were done from the ascending colon transverse colon and ascending colon. In the mid rectum there was a 3 cm broad-based polyp that was removed by piecemeal snare polypectomy and almost 90% the polyp was removed. 2 endoclips were placed at the polypectomy site to prevent post-polypectomy bleed. Retroflexion was performed in the rectum and no lesions were noted. Patient tolerated the procedure well. Impression: 1. Upper endoscopy revealed mild antral gastritis but no evidence of esophagitis or peptic ulcer disease 2. Colonoscopy revealed: a) 3 cm broad-based mid rectal polyp status post piecemeal snare polypectomy followed by Endo Clip placement b) no evidence of colitis Recommendations: Findings of this examination were discussed with the patient . Diet will be advanced as tolerated. She was advised to follow with the biopsy results. Based the biopsy results will plan a repeat colonoscopy in one to 2 months to ensure complete polypectomy.
[2019-02-20 08:18] LABS: Basophils % (A) 1 %; Eosinophils # (A) 0.2 k/uL (0-0.7); Eosinophils % (A) 7 %; HCT 35.7 % (34.0-46.0); HGB 11.9 gm/dL (11.4-16.0); Hypochromasia Slight; Lymphocytes # (A) 1.4 k/uL (1.0-4.8); Lymphocytes % (A) 40 %; MCH 28.1 pg (25.0-35.0); MCHC 33.3 g/dL (31.0-37.0); MCV 84.6 fL (80.0-100.0); Mean Platelet Volume 5.6; Monocytes # (A) 0.3 k/uL (0-1.0); Monocytes % (A) 7 %; Neutrophils # (A) 1.4 k/uL (1.3-7.7); Neutrophils % (A) 41 %; Platelet Count 289 k/uL (150-450); RBC 4.21 m/uL (3.80-5.40); RDW 14.7 % (11.5-15.5); WBC 3.4 k/uL (3.8-10.6)
[2019-02-20] MEDS: PREGABALIN 75 MG CAP PO SCH ×2 (08:42→20:59)
[2019-02-20] MEDS: FOLIC ACID 1 MG TAB PO SCH (08:42)
[2019-02-20] MEDS: PANTOPRAZOLE 40 MG/10 ML VIAL IVP SCH (08:42)
[2019-02-20] MEDS: DICYCLOMINE 10 MG CAP PO SCH ×3 (08:42→23:03)
[2019-02-20] MEDS: FAMOTIDINE 20 MG TAB PO SCH ×2 (08:43→21:00)
[2019-02-20] MEDS: METOPROLOL TARTRATE 25 MG TAB PO SCH ×2 (08:43→21:00)
[2019-02-20] MEDS: Eluxadoline [Viberzi] 100 MG PO SCH (08:43)
[2019-02-20] MEDS: HYDROcodone/APAP 10-325MG 1 EACH TAB PO PRN ×3 (10:47→23:03)
--- NOTE | 2019-02-20 14:19 | P.PN ---
Subjective Progress Note Date: 02/20/19 This is a 58-year-old female, patient of Dr. Cortez. She has a known past medical history of fibroid myalgia, rheumatoid arthritis, diverticulitis, diabetes mellitus, hypertension, GERD, stomach ulcers, uterine and ovarian cancer status post a total hysterectomy, melanoma. Patient has a strong family history of colon cancer both her brother and father had colon cancer. Brother at age 52. Patient presents to the emergency room with abnormal CAT scan findings. CAT scan had showed evidence of mild acute uncomplicated pancolitis. High density within the rectum could represent small polyps or stool products as there is lack of oral contrast within the rectum. It is difficult to exclude mass of the hepatic flexure versus and inspissated stool is there is confluence of stool and contrast at this location. Patient reports symptoms nausea, vomiting and diarrhea 2 weeks. She's having about 20 stools a day. She is reporting the color to be a dark black. And a few days ago she had noted some blood present in the stool. She denies any hematemesis. She reports anytime she eats anything she has both vomiting and diarrhea. She's been started on Rocephin and Flagyl for the pancolitis. GI has been consulted. White count is normal. Hemoglobin has dropped from 13.9-12.7. Sed rate normal at 17. C. diff is negative. Patient denies any chest pain or shortness of breath. Denies any burning with urination. She is using morphine and [place] as needed for pain. She is complaining of a mild headache. Her last EGD and colonoscopy was about 3 years ago there were multiple polyps found, testing was completed at [facility]. On 02/20/2019 patient was seen and examined on the medical floor she is alert and oriented 3 in no apparent distress she is still complaining of abdominal pain and discomfort otherwise she denies any complaints there is no fever or chills no headache or dizziness no chest pain no shortness of breath no cough no nausea or vomiting no burning was urination no frequency or urgency and no hematuria Objective - Vital Signs Vital signs: Vital Signs Temp 97.6 F 02/20/19 11:06 Pulse 67 02/20/19 11:06 Resp 16 02/20/19 11:06 BP 113/56 02/20/19 11:06 Pulse Ox 94 L 02/20/19 11:06 Intake & Output 02/19/19 02/20/19 02/20/19 18:59 06:59 18:59 Intake Total 750 250 Balance 750 250 Intake: IV 250 Intake, IV Titration 150 Amount cefTRIAXone 1 gm In 50 Sodium Chloride 0.9% 50 ml @ 100 mls/hr IVPB Q24HR ЕЛЕНА Rx#:[id number] metroNIDAZOLE-NS PMX 500 100 mg In Saline 1 100ml.bag @ 100 mls/hr IVPB Q8H ЕЛЕНА Rx#:[id number] Oral 600 Other: # Voids 2 5 # Bowel Movements 1 5 - Exam In general patient is alert and oriented 3 in no apparent distress Head normocephalic and atraumatic Neck supple no JVD no goiter Lungs clear to auscultation bilaterally no wheezing or crackles Heart regular rate and rhythm S1-S2, no rub or gallop Abdomen is soft diffuse lower abdominal tenderness nondistended positive bowel sounds no hepatosplenomegaly Extremities no edema Neuro no gross focal neurological deficit - Labs CBC & Chem 7: 02/20/19 07:03 02/20/19 07:03 Labs: Abnormal Lab Results - Last 24 Hours (Table) 02/19/19 02/20/19 02/20/19 Range/Units 14:00 00:05 07:03 WBC 3.4 L (3.8-10.6) k/uL Hct 33.8 L (34.0-46.0) % Potassium (3.5-5.1) mmol/L Carbon Dioxide (22-30) mmol/L BUN (7-17) mg/dL Calcium (8.4-10.2) mg/dL Total Protein (6.3-8.2) g/dL Albumin (3.5-5.0) g/dL Stool Lactoferrin POSITIVE H (NEGATIVE) 02/20/19 Range/Units 07:03 WBC (3.8-10.6) k/uL Hct (34.0-46.0) % Potassium 3.1 L (3.5-5.1) mmol/L Carbon Dioxide 34 H (22-30) mmol/L BUN 4 L (7-17) mg/dL Calcium 8.3 L (8.4-10.2) mg/dL Total Protein 5.6 L (6.3-8.2) g/dL Albumin 3.1 L (3.5-5.0) g/dL Stool Lactoferrin (NEGATIVE) Microbiology - Last 24 Hours (Table) 02/19/19 14:00 Stool Culture - Preliminary Stool Assessment and Plan Plan: 1. Abdominal pain with nausea vomiting and diarrhea: Likely secondary to Pancolitis which was noted on CAT scan. Stool studies pending. C. diff negative. Continue with IV fluid hydration. Rocephin and Flagyl have been added. GI consult. They're planning EGD and colonoscopy tomorrow. Check stool for occult blood. Patient reporting black stools as well as a couple of bright red blood stools a few days ago. Add Zofran as needed for nausea and vomiting. Change Protonix to IV 40 mg daily. Continue the morphine and [place] as needed for pain control 2. Pancolitis continue with Rocephin and Flagyl 3. Abdominal CAT scan findings cannot exclude mass of the hepatic flexure versus inspissated stool cannot be excluded. GI following. Patient scheduled for endoscopy tomorrow 4. Hypokalemia: Potassium of 3 on admission likely secondary to diarrhea. Also will check a magnesium level. Potassium is now 3.7 after supplement 5. UTI: Check urine for culture. Continue Rocephin 6. Family history of colon cancer: Both brother and father with colon cancer 7. History of rheumatoid arthritis 8. History of fibromyalgia 7. Diabetes mellitus type 2: Hold metformin during hospitalization. Add sliding scale coverage 8. History of GERD continue Protonix 9. History of stomach ulcers continue Protonix 10. History of uterine and ovarian cancer status post hysterectomy and oophorectomy 11. Essential hypertension continue the hydrochlorothiazide and metoprolol Patient is improving potassium is low at 3.1 will correct per protocol EGD and colonoscopy results reviewed diet advanced possible discharge to home tomorrow if stable Time with Patient: Less than 30
[2019-02-20] MEDS: metroNIDAZOLE 500 MG TAB PO SCH (15:58)
[2019-02-20] MEDS: clonazePAM 1 MG TAB PO SCH (20:59)
[2019-02-20] MEDS: ZOLPIDEM 10 MG TAB PO SCH (21:00)
[2019-02-20] MEDS: BACLOFEN 10 MG TAB PO SCH (21:00)
[2019-02-20] MEDS: DULoxetine HCL 60 MG CAPSULE.DR PO SCH (21:00)
[2019-02-20] MEDS: METHOCARBAMOL 750 MG TAB PO SCH (21:01)
[2019-02-20] MEDS: tiZANidine 4 MG TAB PO SCH (21:01)
[2019-02-20] MEDS: PRAMIPEXOLE 0.25 MG TAB PO SCH (21:01)
[2019-02-21] MEDS: metroNIDAZOLE 500 MG TAB PO SCH ×3 (00:14→15:36)
[2019-02-21] MEDS: SODIUM CHLORIDE 0.9% 1,000 ML IV SCH (02:48)
[2019-02-21] MEDS: MORPHINE SULFATE 4 MG/ML SYRINGE IV PRN ×4 (03:03→20:55)
[2019-02-21] MEDS: PANTOPRAZOLE 40 MG TABLET PO SCH (07:27)
[2019-02-21] MEDS: DICYCLOMINE 10 MG CAP PO SCH (07:27)
[2019-02-21] MEDS: METOPROLOL TARTRATE 25 MG TAB PO SCH ×2 (07:27→20:54)
[2019-02-21] MEDS: FAMOTIDINE 20 MG TAB PO SCH ×2 (07:27→20:54)
[2019-02-21] MEDS: PREGABALIN 75 MG CAP PO SCH ×2 (07:28→20:54)
[2019-02-21] MEDS: FOLIC ACID 1 MG TAB PO SCH (07:28)
[2019-02-21] MEDS: HYDROcodone/APAP 10-325MG 1 EACH TAB PO PRN ×3 (07:28→19:45)
[2019-02-21] MEDS: HYDROCHLOROTHIAZIDE 25 MG TAB PO SCH (07:28)
[2019-02-21] MEDS: Eluxadoline [Viberzi] 100 MG PO SCH (07:35)
[2019-02-21 08:08] LABS: ALT 21 U/L (9-52); AST 19 U/L (14-36); African American GFR (CKD) >90 (>60 ml/min/1.73 sqM); Albumin 2.9 g/dL (3.5-5.0); Alkaline Phosphatase 61 U/L (38-126); Anion Gap 5 mmol/L; Basophils % (A) 1 %; Blood Urea Nitrogen 5 mg/dL (7-17); Calcium 8.4 mg/dL (8.4-10.2); Carbon Dioxide 34 mmol/L (22-30); Chloride 104 mmol/L (98-107); Eosinophils # (A) 0.3 k/uL (0-0.7); Eosinophils % (A) 6 %; Glucose 89 mg/dL (74-99); HCT 34.2 % (34.0-46.0); HGB 11.3 gm/dL (11.4-16.0); Hypochromasia Slight; Lymphocytes # (A) 1.7 k/uL (1.0-4.8); Lymphocytes % (A) 38 %; MCH 28.3 pg (25.0-35.0); MCV 85.8 fL (80.0-100.0); Mean Platelet Volume 5.7; Monocytes # (A) 0.3 k/uL (0-1.0); Monocytes % (A) 7 %; Neutrophils % (A) 45 %; Platelet Count 276 k/uL (150-450); RBC 3.98 m/uL (3.80-5.40); RDW 14.8 % (11.5-15.5); Sodium 143 mmol/L (137-145); Total Bilirubin 0.2 mg/dL (0.2-1.3); Total Protein 5.3 g/dL (6.3-8.2); WBC 4.4 k/uL (3.8-10.6)
[2019-02-21] MEDS ORDERED: FUROSEMIDE 10 MG/ML 2 ML VIAL IV ONE (13:18)
--- NOTE | 2019-02-21 13:21 | P.PN ---
Subjective Progress Note Date: 02/21/19 This is a 58-year-old female, patient of Dr. Cortez. She has a known past medical history of fibroid myalgia, rheumatoid arthritis, diverticulitis, diabetes mellitus, hypertension, GERD, stomach ulcers, uterine and ovarian cancer status post a total hysterectomy, melanoma. Patient has a strong family history of colon cancer both her brother and father had colon cancer. Brother at age 52. Patient presents to the emergency room with abnormal CAT scan findings. CAT scan had showed evidence of mild acute uncomplicated pancolitis. High density within the rectum could represent small polyps or stool products as there is lack of oral contrast within the rectum. It is difficult to exclude mass of the hepatic flexure versus and inspissated stool is there is confluence of stool and contrast at this location. Patient reports symptoms nausea, vomiting and diarrhea 2 weeks. She's having about 20 stools a day. She is reporting the color to be a dark black. And a few days ago she had noted some blood present in the stool. She denies any hematemesis. She reports anytime she eats anything she has both vomiting and diarrhea. She's been started on Rocephin and Flagyl for the pancolitis. GI has been consulted. White count is normal. Hemoglobin has dropped from 13.9-12.7. Sed rate normal at 17. C. diff is negative. Patient denies any chest pain or shortness of breath. Denies any burning with urination. She is using morphine and [place] as needed for pain. She is complaining of a mild headache. Her last EGD and colonoscopy was about 3 years ago there were multiple polyps found, testing was completed at [facility]. On 02/20/2019 patient was seen and examined on the medical floor she is alert and oriented 3 in no apparent distress she is still complaining of abdominal pain and discomfort otherwise she denies any complaints there is no fever or chills no headache or dizziness no chest pain no shortness of breath no cough no nausea or vomiting no burning was urination no frequency or urgency and no hematuria. On 02/21/2019 patient is still complaining of severe abdominal pain, otherwise she denies any complaints at this time, there is no fever or chills no headache or dizziness no chest pain no shortness of breath no cough no nausea or vomiting no diarrhea no burning with urination no frequency or urgency and no hematuria. Objective - Vital Signs Vital signs: Vital Signs Temp 97.6 F 02/21/19 11:38 Pulse 55 L 02/21/19 11:38 Resp 16 02/21/19 11:38 BP 102/63 02/21/19 11:38 Pulse Ox 96 02/21/19 11:38 Intake & Output 02/20/19 02/21/19 02/21/19 18:59 06:59 18:59 Intake Total 400 590 Output Total 300 Balance 100 590 Intake: IV 250 Intake, IV Titration 150 Amount cefTRIAXone 1 gm In 50 Sodium Chloride 0.9% 50 ml @ 100 mls/hr IVPB Q24HR ЕЛЕНА Rx#:[id number] metroNIDAZOLE-NS PMX 500 100 mg In Saline 1 100ml.bag @ 100 mls/hr IVPB Q8H ЕЛЕНА Rx#:[id number] Oral 590 Output: Urine 300 Other: # Voids 2 - Exam In general patient is alert and oriented 3 in no apparent distress Head normocephalic and atraumatic Neck supple no JVD no goiter Lungs clear to auscultation bilaterally no wheezing or crackles Heart regular rate and rhythm S1-S2, no rub or gallop Abdomen is soft diffuse lower abdominal tenderness nondistended positive bowel sounds no hepatosplenomegaly Extremities no edema Neuro no gross focal neurological deficit - Labs CBC & Chem 7: 02/21/19 07:05 02/21/19 07:05 Labs: Abnormal Lab Results - Last 24 Hours (Table) 02/21/19 02/21/19 Range/Units 07:05 07:05 Hgb 11.3 L (11.4-16.0) gm/dL Carbon Dioxide 34 H (22-30) mmol/L BUN 5 L (7-17) mg/dL Total Protein 5.3 L (6.3-8.2) g/dL Albumin 2.9 L (3.5-5.0) g/dL Assessment and Plan Plan: 1. Abdominal pain with nausea vomiting and diarrhea: Likely secondary to Pancolitis which was noted on CAT scan. Stool studies pending. C. diff negative. Continue with IV fluid hydration. Rocephin and Flagyl have been added. GI consult. They're planning EGD and colonoscopy tomorrow. Check stool for occult blood. Patient reporting black stools as well as a couple of bright red blood stools a few days ago. Add Zofran as needed for nausea and vomiting. Change Protonix to IV 40 mg daily. Continue the morphine and [place] as needed for pain control 2. Pancolitis continue with Rocephin and Flagyl 3. Abdominal CAT scan findings cannot exclude mass of the hepatic flexure versus inspissated stool cannot be excluded. GI following. Patient scheduled for endoscopy tomorrow 4. Hypokalemia: Potassium of 3 on admission likely secondary to diarrhea. Also will check a magnesium level. Potassium is now 3.7 after supplement 5. UTI: Check urine for culture. Continue Rocephin 6. Family history of colon cancer: Both brother and father with colon cancer 7. History of rheumatoid arthritis 8. History of fibromyalgia 7. Diabetes mellitus type 2: Hold metformin during hospitalization. Add sliding scale coverage 8. History of GERD continue Protonix 9. History of stomach ulcers continue Protonix 10. History of uterine and ovarian cancer status post hysterectomy and oophorectomy 11. Essential hypertension continue the hydrochlorothiazide and metoprolol Patient is still complaining of severe abdominal pain Will adjust pain medications and increase Bentyl. If not improving will repeat computed tomography scan of the abdomen and pelvis
--- NOTE | 2019-02-21 13:24 | PN ---
PROGRESS NOTE DATE OF DICTATION: February 21, 2019 Patient is a 58-year-old pleasant white female admitted to the hospital with severe diarrhea and rectal bleeding. She had an EGD and colonoscopy done by me yesterday. Upper endoscopy showed mild gastritis. Colonoscopy revealed a 3 cm broad-based mid rectal polyp that was removed by piecemeal snare polypectomy. Following the procedure, the patient continues to have abdominal pain. The diarrhea has resolved. On a regular diet, tolerating well. No fever, chills, or night sweats. PHYSICAL EXAMINATION: She appears comfortable. No apparent distress. Vital signs are stable. Blood pressure is 102/63, pulse rate 55, temperature 97.6. HEENT examination unremarkable. Conjunctivae pink. Sclerae anicteric. Oral cavity no lesions. NECK: No JVD or lymph node enlargement. CHEST: Clear to auscultation. HEART: Regular rate and rhythm. ABDOMEN: Soft. Bowel sounds are positive. No organomegaly. EXTREMITIES: No pedal edema. SKIN no rashes. NEURO: She is alert and oriented x3. No focal deficits. LABORATORY DATA: Lab done today WBC 4.4, hemoglobin 13.3, platelets are normal. Basic metabolic panel is within normal limits. IMPRESSION: 1. Severe diarrhea for the last 2 weeks duration with occasional rectal bleeding. Colonoscopy done yesterday showed evidence of 3 cm mid rectal polyp, but no evidence of colitis seen. Polyp was endoscopically removed. 2. Nausea, vomiting, resolved. RECOMMENDATIONS: 1. Await biopsy results. 2. Advance diet as tolerated. 3. Continue with Bentyl 10 mg 3 times daily for the abdominal pain. 4. Patient was advised to follow up in office in 1-2 weeks following discharge from the hospital at which time we will discuss the biopsy results and plan for repeat flexible sigmoidoscopy in 3 months to ensure complete polypectomy. MMODL / IJN: [id number] /
[2019-02-21] MEDS: DICYCLOMINE 20 MG TAB PO SCH ×3 (14:02→20:55)
[2019-02-21] MEDS: clonazePAM 1 MG TAB PO SCH (20:54)
[2019-02-21] MEDS: PRAMIPEXOLE 0.25 MG TAB PO SCH (20:54)
[2019-02-21] MEDS: tiZANidine 4 MG TAB PO SCH (20:54)
[2019-02-21] MEDS: BACLOFEN 10 MG TAB PO SCH (20:54)
[2019-02-21] MEDS: METHOCARBAMOL 750 MG TAB PO SCH (20:54)
[2019-02-21] MEDS: DULoxetine HCL 60 MG CAPSULE.DR PO SCH (20:54)
[2019-02-21] MEDS: ZOLPIDEM 10 MG TAB PO SCH (21:02)
[2019-02-22] MEDS: metroNIDAZOLE 500 MG TAB PO SCH ×3 (00:01→17:12)
[2019-02-22] MEDS: MORPHINE SULFATE 4 MG/ML SYRINGE IV PRN ×6 (00:01→21:30)
[2019-02-22] MEDS: HYDROcodone/APAP 10-325MG 1 EACH TAB PO PRN ×3 (06:48→20:08)
[2019-02-22 07:09] LABS: Basophils % (A) 0 %; Eosinophils # (A) 0.3 k/uL (0-0.7); Eosinophils % (A) 6 %; Hypochromasia Slight; Lymphocytes # (A) 1.5 k/uL (1.0-4.8); Lymphocytes % (A) 33 %; MCH 28.4 pg (25.0-35.0); MCHC 33.3 g/dL (31.0-37.0); MCV 85.2 fL (80.0-100.0); Mean Platelet Volume 5.6; Monocytes # (A) 0.3 k/uL (0-1.0); Monocytes % (A) 6 %; Neutrophils # (A) 2.4 k/uL (1.3-7.7); Neutrophils % (A) 52 %; Platelet Count 298 k/uL (150-450); RBC 4.23 m/uL (3.80-5.40); RDW 14.8 % (11.5-15.5); WBC 4.6 k/uL (3.8-10.6)
[2019-02-22 07:31] LABS: ALT 20 U/L (9-52); AST 24 U/L (14-36); African American GFR (CKD) >90 (>60 ml/min/1.73 sqM); Alkaline Phosphatase 66 U/L (38-126); Anion Gap 5 mmol/L; Blood Urea Nitrogen 9 mg/dL (7-17); Calcium 8.3 mg/dL (8.4-10.2); Carbon Dioxide 34 mmol/L (22-30); Chloride 102 mmol/L (98-107); Glucose 93 mg/dL (74-99); Potassium 3.3 mmol/L (3.5-5.1); Sodium 141 mmol/L (137-145); Total Bilirubin 0.2 mg/dL (0.2-1.3); Total Protein 5.5 g/dL (6.3-8.2)
[2019-02-22] MEDS: PREGABALIN 75 MG CAP PO SCH ×2 (08:33→20:09)
[2019-02-22] MEDS: HYDROCHLOROTHIAZIDE 25 MG TAB PO SCH (08:34)
[2019-02-22] MEDS: METOPROLOL TARTRATE 25 MG TAB PO SCH ×2 (08:34→20:08)
[2019-02-22] MEDS: PANTOPRAZOLE 40 MG TABLET PO SCH (08:34)
[2019-02-22] MEDS: FAMOTIDINE 20 MG TAB PO SCH ×2 (08:35→20:08)
[2019-02-22] MEDS: DICYCLOMINE 20 MG TAB PO SCH ×4 (08:35→21:23)
[2019-02-22] MEDS: FOLIC ACID 1 MG TAB PO SCH (08:35)
[2019-02-22] MEDS: Eluxadoline [Viberzi] 100 MG PO SCH (09:00)
[2019-02-22] MEDS ORDERED: POTASSIUM CHLORIDE ER 20 MEQ TAB.ER PO STA (10:14)
[2019-02-22] MEDS ORDERED: FLUCONAZOLE 150 MG TAB PO STA (10:30)
--- NOTE | 2019-02-22 10:40 | P.PN ---
Subjective Progress Note Date: 02/22/19 This is a 58-year-old female, patient of Dr. Cortez. She has a known past medical history of fibroid myalgia, rheumatoid arthritis, diverticulitis, diabetes mellitus, hypertension, GERD, stomach ulcers, uterine and ovarian cancer status post a total hysterectomy, melanoma. Patient has a strong family history of colon cancer both her brother and father had colon cancer. Brother at age 52. Patient presents to the emergency room with abnormal CAT scan findings. CAT scan had showed evidence of mild acute uncomplicated pancolitis. High density within the rectum could represent small polyps or stool products as there is lack of oral contrast within the rectum. It is difficult to exclude mass of the hepatic flexure versus and inspissated stool is there is confluence of stool and contrast at this location. Patient reports symptoms nausea, vomiting and diarrhea 2 weeks. She's having about 20 stools a day. She is reporting the color to be a dark black. And a few days ago she had noted some blood present in the stool. She denies any hematemesis. She reports anytime she eats anything she has both vomiting and diarrhea. She's been started on Rocephin and Flagyl for the pancolitis. GI has been consulted. White count is normal. Hemoglobin has dropped from 13.9-12.7. Sed rate normal at 17. C. diff is negative. Patient denies any chest pain or shortness of breath. Denies any burning with urination. She is using morphine and [place] as needed for pain. She is complaining of a mild headache. Her last EGD and colonoscopy was about 3 years ago there were multiple polyps found, testing was completed at [facility]. On 02/20/2019 patient was seen and examined on the medical floor she is alert and oriented 3 in no apparent distress she is still complaining of abdominal pain and discomfort otherwise she denies any complaints there is no fever or chills no headache or dizziness no chest pain no shortness of breath no cough no nausea or vomiting no burning was urination no frequency or urgency and no hematuria. On 02/21/2019 patient is still complaining of severe abdominal pain, otherwise she denies any complaints at this time, there is no fever or chills no headache or dizziness no chest pain no shortness of breath no cough no nausea or vomiting no diarrhea no burning with urination no frequency or urgency and no hematuria. 02/22/2019 patient is still having severe lower abdominal pain. She did go under an EGD and colonoscopy over the weekend. EGD is showing antral gastritis and colonoscopy had one rectal polyp. Bentyl was started. The patient still has had no improvement in her abdominal pain. She is still having a lot of diarrhea. She had 10 stools yesterday and 4 this morning. Some of the stools are having blood. Hemoglobin is 12. She is having nausea but no vomiting. Denies any chest pain or shortness of breath. Complaining of vaginal yeast infection. And yeast in the groin area Diflucan and nystatin powder added. Objective - Vital Signs Vital signs: Vital Signs Temp 97.6 F 02/22/19 04:21 Pulse 57 L 02/22/19 04:21 Resp 16 02/22/19 04:21 BP 101/64 02/22/19 04:21 Pulse Ox 92 L 02/22/19 04:21 Intake & Output 02/21/19 02/22/19 02/22/19 18:59 06:59 18:59 Intake Total 1000 590 Balance 1000 590 Intake: Intake, IV Titration 600 Amount Sodium Chloride 0.9% 1, 600 000 ml @ 75 mls/hr IV . [id number] [facility] Rx#:[id number] Oral 400 590 Other: Voiding Method Toilet Toilet # Voids 2 1 # Bowel Movements 1 - Exam Head normocephalic Neck supple Lungs clear to auscultation bilaterally no wheezing or crackles Heart regular rate and rhythm S1-S2, no rub or gallop Abdomen is soft nondistended lower abdominal tenderness across the abdomen Extremities no edema Neuro alert and orientated to 3 - Labs CBC & Chem 7: 02/22/19 06:48 02/22/19 06:48 Labs: Abnormal Lab Results - Last 24 Hours (Table) 02/22/19 Range/Units 06:48 Potassium 3.3 L (3.5-5.1) mmol/L Carbon Dioxide 34 H (22-30) mmol/L Calcium 8.3 L (8.4-10.2) mg/dL Total Protein 5.5 L (6.3-8.2) g/dL Albumin 3.0 L (3.5-5.0) g/dL Microbiology - Last 24 Hours (Table) 02/19/19 14:00 Stool Culture - Preliminary Stool Assessment and Plan Assessment: 1. Abdominal pain with nausea vomiting and diarrhea: Patient still having abdominal pain. She had a CAT scan outpatient showing pancolitis. Underwent EGD and colonoscopy during this admission showing antral gastritis and a rectal polyp which was removed. Bentyl started. Patient still having abdominal pain. She's using the morphine and [place] scheduled. Stool for C. diff is negative. Due to her still having diarrhea and blood in the stools and abdominal pain will repeat computed tomography scan of the abdomen and pelvis with contrast. Notify GI service patient's current symptoms. Continue with IV fluid hydration. Rocephin and Flagyl have been added. GI consult. Continue the morphine and [place] as needed for pain control 2. Pancolitis continue with Rocephin and Flagyl 3. Abdominal CAT scan findings cannot exclude mass of the hepatic flexure versus inspissated stool cannot be excluded. GI following. 4. Hypokalemia: Potassium of 3 on admission likely secondary to diarrhea. Also will check a magnesium level. Potassium is now 3.7 after supplement 5. UTI: Completed treatment during admission. Repeat urinalysis was negative. Continue Rocephin 6. Family history of colon cancer: Both brother and father with colon cancer 7. History of rheumatoid arthritis 8. History of fibromyalgia 7. Diabetes mellitus type 2: Hold metformin during hospitalization. Add sliding scale coverage 8. History of GERD continue Protonix 9. History of stomach ulcers continue Protonix 10. History of uterine and ovarian cancer status post hysterectomy and oophorectomy 11. Essential hypertension continue the hydrochlorothiazide and metoprolol 12. Hypokalemia patient receiving potassium supplement 13. Moderate protein calorie malnutrition: Add ensure twice a day GI prophylaxis Protonix and DVT prophylaxis lovenox I performed an examination of the patient and discussed their management with the physician Pipeline Systems Operator. I have reviewed the Physician Pipeline Systems Operator's notes and agree with the documented findings and plan of care
[2019-02-22] MEDS: ENOXAPARIN 40 MG/0.4 ML SYRINGE SQ SCH (11:02)
[2019-02-22] MEDS: IOPAMIDOL-300 CONTRAST 30 ML VIAL (ORAL USE) PO PRN ×2 (11:06→11:58)
--- NOTE | 2019-02-22 16:10 | CT ---
EXAMINATION TYPE: CT abdomen pelvis w con DATE OF EXAM: 02/22/2019 COMPARISON: 02/17/2019 HISTORY: 58-year-old female pain, abnormal colonoscopy, family history of colon CA TECHNIQUE: Contiguous axial scanning of the abdomen and pelvis following administration of 100 ml Iso tirso 300 IV contrast. Delayed images through the kidneys and coronal/sagittal reconstructions perform ed. CT DLP: 1973 mGycm Automated exposure control for dose reduction was used. FINDINGS: Heart upper limits of normal in size without pericardial effusion. Some strandy atelectasis left base . No pleural effusion. Liver upper limits of normal in size at 17.4 cm. No focal lesion seen. Cholecystectomy clips. No bili ariane ductal dilatation. Adrenal glands, kidneys, spleen, and pancreas appear within normal limits. No dilated small bowel, free fluid, or free air. No mesenteric or retroperitoneal lymphadenopathy. Moderate stool burden. Mildly redundant distal sigmoid. Some type of metallic clips within the distal rectum measuring 2.3 cm long. Bladder under distended. Pelvic phleboliths. No abnormal fluid collection in the pelvis or pelvic lym phadenopathy. Bones: Extensive thoracolumbosacral fusion hardware with S-shaped scoliosis. IMPRESSION: 1. A COUPLE METALLIC CLIPS WITHIN THE DISTAL RECTUM MEASURING 2.3 CM LONG. QUERY INGESTED VERSUS DIST ALLY INSERTED FOREIGN BODY. CLINICAL CORRELATION RECOMMENDED. 2. MODERATE COLONIC STOOL. THE PREVIOUS FINDINGS WHICH HAD SUGGESTED COLITIS HAVE LARGELY RESOLVED. 3. OTHERWISE, NO ACUTE INFLAMMATORY PROCESS IDENTIFIED IN THE ABDOMEN OR PELVIS TO EXPLAIN THE PATIEN T'S SYMPTOMS.
--- NOTE | 2019-02-22 18:21 | PN ---
PROGRESS NOTE DATE OF DICTATION: 02/22/2019 The patient is a 58-year-old pleasant white female with history of severe IBS, admitted to the hospital with diarrhea and rectal bleeding. She had a colonoscopy done 2 days ago and was noted to have a large rectal polyp that was removed. She still has abdominal pain. She had 6 bowel movements today, loose to watery in consistency. She has been taking Bentyl as needed, with no improvement in her symptoms. She also complains of diffuse abdominal pain. No nausea, vomiting. PHYSICAL EXAMINATION: Appears comfortable. No apparent distress. VITAL SIGNS: Stable. Blood pressure 120/59, pulse rate 58, temperature 97.8. HEENT examination unremarkable. Conjunctivae pink. Sclerae anicteric. Oral cavity no lesions. NECK: No JVD or lymph node enlargement. CHEST: Clear to auscultation. HEART: Regular rate and rhythm. ABDOMEN: Soft. There was mild tenderness in the lower abdominal area. EXTREMITIES: No pedal edema. SKIN: No rashes. NEUROLOGIC: Alert and oriented x3. No focal deficits. LABS DONE TODAY: WBC 4.6, hemoglobin 12, platelets normal. Basic metabolic panel is within normal limits. C difficile toxin was negative. IMPRESSION: Chronic severe diarrhea of many years' duration. Patient was diagnosed with irritable bowel syndrome in the past. She did have an EGD and colonoscopy 2 days ago that showed mild gastritis and no evidence of colitis. She had a large rectal polyp that was removed. Her symptoms are very suggestive of severe IBS. She is being maintained on Viberzi on an outpatient basis but since being in the hospital has taking dicyclomine as needed. C difficile toxin has been negative. RECOMMENDATIONS: 1. Increase her Bentyl to 10 mg 4 times daily. 2. Imodium as needed. 3. Advance diet as tolerated. 4. Patient will be discharged home with outpatient followup in 1-2 weeks. MMODL / IJN: [id number] /
[2019-02-22 19:51] LABS: Glucose,Whole Blood 111 mg/dL (75-99)
[2019-02-22 19:58] VITALS: RESP 16
[2019-02-22] MEDS: DULoxetine HCL 60 MG CAPSULE.DR PO SCH (20:08)
[2019-02-22] MEDS: METHOCARBAMOL 750 MG TAB PO SCH (20:09)
[2019-02-22] MEDS: PRAMIPEXOLE 0.25 MG TAB PO SCH (20:09)
[2019-02-22] MEDS: BACLOFEN 10 MG TAB PO SCH (20:09)
[2019-02-22] MEDS: ZOLPIDEM 10 MG TAB PO SCH (20:09)
[2019-02-22] MEDS: clonazePAM 1 MG TAB PO SCH (20:09)
[2019-02-22] MEDS: tiZANidine 4 MG TAB PO SCH (20:09)
[2019-02-22] MEDS: NYSTATIN 100,000 UNIT/GM POWD 15 GM TOPICAL SCH (21:27)
[2019-02-23] MEDS: metroNIDAZOLE 500 MG TAB PO SCH ×4 (00:14→23:16)
[2019-02-23 06:59] LABS: Basophils % (A) 0 %; Eosinophils # (A) 0.3 k/uL (0-0.7); Eosinophils % (A) 6 %; HCT 38.8 % (34.0-46.0); HGB 12.6 gm/dL (11.4-16.0); Hypochromasia Slight; Lymphocytes # (A) 1.7 k/uL (1.0-4.8); Lymphocytes % (A) 31 %; MCHC 32.3 g/dL (31.0-37.0); MCV 86.5 fL (80.0-100.0); Mean Platelet Volume 5.8; Monocytes # (A) 0.4 k/uL (0-1.0); Monocytes % (A) 7 %; Neutrophils % (A) 54 %; Platelet Count 331 k/uL (150-450); RBC 4.49 m/uL (3.80-5.40); RDW 14.7 % (11.5-15.5); WBC 5.5 k/uL (3.8-10.6)
[2019-02-23 07:07] LABS: ALT 22 U/L (9-52); AST 21 U/L (14-36); African American GFR (CKD) >90 (>60 ml/min/1.73 sqM); Albumin 3.5 g/dL (3.5-5.0); Alkaline Phosphatase 65 U/L (38-126); Anion Gap 7 mmol/L; Blood Urea Nitrogen 12 mg/dL (7-17); Carbon Dioxide 33 mmol/L (22-30); Chloride 100 mmol/L (98-107); Glucose 88 mg/dL (74-99); Potassium 3.9 mmol/L (3.5-5.1); Sodium 140 mmol/L (137-145); Total Bilirubin 0.2 mg/dL (0.2-1.3); Total Protein 6.2 g/dL (6.3-8.2)
[2019-02-23] MEDS: FOLIC ACID 1 MG TAB PO SCH (07:54)
[2019-02-23] MEDS: PREGABALIN 75 MG CAP PO SCH ×2 (07:54→22:42)
[2019-02-23] MEDS: DICYCLOMINE 20 MG TAB PO SCH ×4 (07:55→22:19)
[2019-02-23] MEDS: HYDROCHLOROTHIAZIDE 25 MG TAB PO SCH (07:55)
[2019-02-23] MEDS: PANTOPRAZOLE 40 MG TABLET PO SCH (07:56)
[2019-02-23] MEDS: FAMOTIDINE 20 MG TAB PO SCH ×2 (07:56→22:19)
[2019-02-23] MEDS: MORPHINE SULFATE 4 MG/ML SYRINGE IV PRN ×2 (07:57→12:55)
[2019-02-23] MEDS: NYSTATIN 100,000 UNIT/GM POWD 15 GM TOPICAL SCH ×2 (07:59→22:30)
[2019-02-23] MEDS: ENOXAPARIN 40 MG/0.4 ML SYRINGE SQ SCH (08:00)
[2019-02-23] MEDS: Eluxadoline [Viberzi] 100 MG PO SCH ×2 (08:00→19:17)
[2019-02-23] MEDS: HYDROcodone/APAP 10-325MG 1 EACH TAB PO PRN ×2 (10:14→16:21)
[2019-02-23] MEDS: METOPROLOL TARTRATE 25 MG TAB PO SCH ×2 (10:14→22:18)
[2019-02-23] MEDS ORDERED: NA PHOS,M-B/NA PHOS,DI-BA 133 ML ENEMA RECTAL ONE (14:00)
--- NOTE | 2019-02-23 14:53 | P.PN ---
Subjective Progress Note Date: 02/23/19 Principal diagnosis: This is a 58-year-old female, patient of Dr. Cortez. She has a known past medical history of fibroid myalgia, rheumatoid arthritis, diverticulitis, diabetes mellitus, hypertension, GERD, stomach ulcers, uterine and ovarian cancer status post a total hysterectomy, melanoma. Patient has a strong family history of colon cancer both her brother and father had colon cancer. Brother at age 52. Patient presents to the emergency room with abnormal CAT scan findings. CAT scan had showed evidence of mild acute uncomplicated pancolitis. High density within the rectum could represent small polyps or stool products as there is lack of oral contrast within the rectum. It is difficult to exclude mass of the hepatic flexure versus and inspissated stool is there is confluence of stool and contrast at this location. Patient reports symptoms nausea, vomiting and diarrhea 2 weeks. She's having about 20 stools a day. She is reporting the color to be a dark black. And a few days ago she had noted some blood present in the stool. She denies any hematemesis. She reports anytime she eats anything she has both vomiting and diarrhea. She's been started on Rocephin and Flagyl for the pancolitis. GI has been consulted. White count is normal. Hemoglobin has dropped from 13.9-12.7. Sed rate normal at 17. C. diff is negative. Patient denies any chest pain or shortness of breath. Denies any burning with urination. She is using morphine and [place] as needed for pain. She is complaining of a mild headache. Her last EGD and colonoscopy was about 3 years ago there were multiple polyps found, testing was completed at [facility]. On 02/20/2019 patient was seen and examined on the medical floor she is alert and oriented 3 in no apparent distress she is still complaining of abdominal pain and discomfort otherwise she denies any complaints there is no fever or chills no headache or dizziness no chest pain no shortness of breath no cough no nausea or vomiting no burning was urination no frequency or urgency and no hematuria. On 02/21/2019 patient is still complaining of severe abdominal pain, otherwise she denies any complaints at this time, there is no fever or chills no headache or dizziness no chest pain no shortness of breath no cough no nausea or vomiting no diarrhea no burning with urination no frequency or urgency and no hematuria. 02/22/2019 patient is still having severe lower abdominal pain. She did go under an EGD and colonoscopy over the weekend. EGD is showing antral gastritis and colonoscopy had one rectal polyp. Bentyl was started. The patient still has had no improvement in her abdominal pain. She is still having a lot of diarrhea. She had 10 stools yesterday and 4 this morning. Some of the stools are having blood. Hemoglobin is 12. She is having nausea but no vomiting. Denies any chest pain or shortness of breath. Complaining of vaginal yeast infection. And yeast in the groin area Diflucan and nystatin powder added. On 02/23/2019 patient is alert and oriented 3 continues to complain of abdominal pain 01/02. Patient states that she is having 10 stools per day, per patient and they are watery, she denies any blood present in stool. Hgb stable 12.6. CT scan reviewed will order enema due to increased colonic stool seen on scan. Flagyl continued. Patient is tolerating diet. Patient denies any shortness of breath, chest pain, nausea vomiting, dysuria, urinary frequency. Objective - Vital Signs Vital signs: Vital Signs Temp 98 F 02/23/19 12:43 Pulse 65 02/23/19 12:43 Resp 16 02/23/19 12:43 BP 121/75 02/23/19 12:43 Pulse Ox 94 L 02/23/19 12:43 Intake & Output 02/22/19 02/23/19 02/23/19 18:59 06:59 18:59 Intake Total 150 720 Balance 150 720 Intake: Intake, IV Titration 50 Amount cefTRIAXone 1 gm In 50 Sodium Chloride 0.9% 50 ml @ 100 mls/hr IVPB Q24HR [facility] Rx#:[id number] Oral 100 720 Other: Voiding Method Toilet Toilet # Voids 1 # Bowel Movements 1 - Exam Head normocephalic Neck supple Lungs clear to auscultation bilaterally no wheezing or crackles Heart regular rate and rhythm S1-S2, no rub or gallop Abdomen is soft nondistended, tenderness in lower quadrants with palpation. Extremities no edema Neuro alert and orientated to 3 - Labs CBC & Chem 7: 02/23/19 06:25 02/23/19 06:25 Labs: Abnormal Lab Results - Last 24 Hours (Table) 02/22/19 02/23/19 Range/Units 19:49 06:25 Carbon Dioxide 33 H (22-30) mmol/L POC Glucose (mg/dL) 111 H (75-99) mg/dL Total Protein 6.2 L (6.3-8.2) g/dL Microbiology - Last 24 Hours (Table) 02/19/19 14:00 Stool Culture - Final Stool Assessment and Plan Assessment: 1. Abdominal pain with nausea vomiting and diarrhea: Patient still having abdominal pain. She had a CAT scan outpatient showing pancolitis. Underwent EGD and colonoscopy during this admission showing antral gastritis and a rectal polyp which was removed. Bentyl started. Patient still having abdominal pain. She's using the morphine and [place] scheduled. Stool for C. diff is negative. Due to her still having diarrhea and blood in the stools and abdominal pain will repeat computed tomography scan of the abdomen and pelvis with contrast. Notify GI service patient's current symptoms. Rocephin and Flagyl have been added. Repeat CT showed moderate colonic stool. The previous findings which had suggested colitis have largely resolved. Otherwise no acute inflammatory process identified. Will order enema for patient. Patient has been cleared by GI and they recommended that we increase her Bentyl, otherwise clear for discharge. Stool culture negative 2. Pancolitis continue with Rocephin and Flagyl 3. Abdominal CAT scan findings cannot exclude mass of the hepatic flexure versus inspissated stool cannot be excluded. GI following. 4. Hypokalemia: Potassium of 3 on admission likely secondary to diarrhea. Also will check a magnesium level. Potassium currently 3.9. Resolved. 5. UTI: Completed treatment during admission. Repeat urinalysis was negative. Continue Rocephin 6. Family history of colon cancer: Both brother and father with colon cancer 7. History of rheumatoid arthritis 8. History of fibromyalgia 7. Diabetes mellitus type 2: Hold metformin during hospitalization. Add sliding scale coverage 8. History of GERD continue Protonix 9. History of stomach ulcers continue Protonix 10. History of uterine and ovarian cancer status post hysterectomy and oophorectomy 11. Essential hypertension continue the hydrochlorothiazide and metoprolol 12. Moderate protein calorie malnutrition: Add ensure twice a day GI prophylaxis Protonix and DVT prophylaxis lovenox I performed an examination of the patient and discussed their management with the Nurse Practitioner. I have reviewed the Nurse Practitioner's notes and agree with the documented findings and plan of care
--- NOTE | 2019-02-23 16:41 | PN ---
PROGRESS NOTE DATE OF DICTATION: 02/23/2019 The patient is a 58-year-old white female admitted to the hospital with severe diarrhea of several weeks' duration. She has been complaining of intermittent nausea and vomiting. As a part of her workup she underwent an EGD and colonoscopy by me that showed some gastritis and polyp that was removed. Biopsies are still pending at the time of this dictation. Following the procedure she started having some diarrhea. Then she became somewhat constipated yesterday and today had about 9 bowel movements a day. Because of the ongoing abdominal pain she had another CT of the abdomen and pelvis done last night that showed some fecal stasis, but otherwise it was unremarkable. She is still requesting pain medications. She denies any bleeding. No nausea, vomiting. She remains on Bentyl 10 mg 4 times daily. PHYSICAL EXAMINATION: She appears comfortable. No apparent distress. VITAL SIGNS: Stable. Blood pressure is 112/75, pulse rate 65, temperature 98. HEENT examination unremarkable. Conjunctivae pink. Sclerae anicteric. Oral cavity no lesions. NECK: No JVD or lymph node enlargement. CHEST: Clear to auscultation. HEART: Regular rate and rhythm. ABDOMEN: Soft. It was slightly tender diffusely. EXTREMITIES: No pedal edema. SKIN: No rashes. NEUROLOGIC: Alert and oriented x3. No focal deficits. LABS FROM TODAY: WBC 5.5, hemoglobin 12.6. Platelets are normal. Basic metabolic panel is within normal limits. C difficile was negative yesterday. IMPRESSION: 1. Altered bowel movements with alternating diarrhea and constipation. All her symptoms are suggestive of irritable bowel syndrome. Recent colonoscopy did not show any evidence of colitis. 2. Large rectal polyp noted on recent colonoscopy. Biopsy results are still pending at the time of this dictation. 3. Nausea and vomiting, resolved. RECOMMENDATIONS: 1. Await pathology results. 2. Advance diet as tolerated. 3. She can be discharged home with an outpatient followup in 1-2 weeks. Thank you for this consultation. MMODL / IJN: [id number] /
[2019-02-23] MEDS: MORPHINE SULFATE 2 MG/ML SYRINGE IV PRN ×2 (18:17→22:19)
[2019-02-23] MEDS: ONDANSETRON 4 MG/2 ML VIAL IVP PRN (19:35)
[2019-02-23 19:53] VITALS: TEMP 97.7
[2019-02-23] MEDS: BACLOFEN 10 MG TAB PO SCH (22:17)
[2019-02-23] MEDS: DULoxetine HCL 60 MG CAPSULE.DR PO SCH (22:18)
[2019-02-23] MEDS: METHOCARBAMOL 750 MG TAB PO SCH (22:18)
[2019-02-23] MEDS: clonazePAM 1 MG TAB PO SCH (22:18)
[2019-02-23] MEDS: PRAMIPEXOLE 0.25 MG TAB PO SCH (22:19)
[2019-02-23] MEDS: tiZANidine 4 MG TAB PO SCH (22:42)
[2019-02-23] MEDS: ZOLPIDEM 10 MG TAB PO SCH (22:42)
[2019-02-24 04:34] VITALS: BP 93/62; PULSE 57
[2019-02-24] MEDS: MORPHINE SULFATE 2 MG/ML SYRINGE IV PRN (07:27)
[2019-02-24 07:54] LABS: Basophils # (A) 0.1 k/uL (0-0.2); Basophils % (A) 1 %; Eosinophils # (A) 0.3 k/uL (0-0.7); Eosinophils % (A) 6 %; HCT 40.3 % (34.0-46.0); HGB 12.3 gm/dL (11.4-16.0); Hypochromasia Slight; Lymphocytes # (A) 1.4 k/uL (1.0-4.8); Lymphocytes % (A) 27 %; MCH 27.7 pg (25.0-35.0); MCHC 30.6 g/dL (31.0-37.0); MCV 90.5 fL (80.0-100.0); Mean Platelet Volume 6.6; Monocytes # (A) 0.3 k/uL (0-1.0); Monocytes % (A) 6 %; Neutrophils # (A) 2.8 k/uL (1.3-7.7); Neutrophils % (A) 56 %; Platelet Count 261 k/uL (150-450); RBC 4.45 m/uL (3.80-5.40); RDW 15.2 % (11.5-15.5)
[2019-02-24 08:16] LABS: Albumin 3.2 g/dL (3.5-5.0); Total Bilirubin 0.2 mg/dL (0.2-1.3); Total Protein 5.8 g/dL (6.3-8.2)
[2019-02-24] MEDS: HYDROcodone/APAP 10-325MG 1 EACH TAB PO PRN (08:18)
[2019-02-24] MEDS: PANTOPRAZOLE 40 MG TABLET PO SCH (08:19)
[2019-02-24] MEDS: metroNIDAZOLE 500 MG TAB PO SCH (08:19)
[2019-02-24] MEDS: DICYCLOMINE 20 MG TAB PO SCH (08:20)
[2019-02-24] MEDS: ENOXAPARIN 40 MG/0.4 ML SYRINGE SQ SCH (08:20)
[2019-02-24] MEDS: PREGABALIN 75 MG CAP PO SCH (08:20)
[2019-02-24] MEDS: NYSTATIN 100,000 UNIT/GM POWD 15 GM TOPICAL SCH (08:21)
[2019-02-24] MEDS: FOLIC ACID 1 MG TAB PO SCH (08:21)
[2019-02-24] MEDS: METOPROLOL TARTRATE 25 MG TAB PO SCH (08:21)
[2019-02-24] MEDS: FAMOTIDINE 20 MG TAB PO SCH (08:21)
[2019-02-24] MEDS: HYDROCHLOROTHIAZIDE 25 MG TAB PO SCH (08:21)
[2019-02-24] MEDS: Eluxadoline [Viberzi] 100 MG PO SCH (10:58)
--- NOTE | 2019-02-24 11:16 | P.DS ---
Providers Date of admission: 02/19/19 14:33 Expected date of discharge: 02/24/19 Attending physician: Ilda Dalton Consults: 02/18/19 21:16 Consult Physician Stat Consulting Provider: Jayden Kauffman Reason/Comments: pancolitis Do you want consulting provider notified?: Yes, Notify in am [facility] Course: Discharge diagnosis 1. Abdominal pain with nausea vomiting and diarrhea: Patient still having abdominal pain. She had a CAT scan outpatient showing pancolitis. Underwent EGD and colonoscopy during this admission showing antral gastritis and a rectal polyp which was removed. Bentyl started. Patient still having abdominal pain. She's using the morphine and Hollis scheduled. Stool for C. diff is negative. Due to her still having diarrhea and blood in the stools and abdominal pain will repeat computed tomography scan of the abdomen and pelvis with contrast. Notify GI service patient's current symptoms. Rocephin and Flagyl have been added. Repeat CT showed moderate colonic stool. The previous findings which had suggested colitis have largely resolved. Otherwise no acute inflammatory pr ocess identified. Will order enema for patient. Patient has been cleared by GI and they recommended that we increase her Bentyl, otherwise clear for discharge. Stool culture negative. She will be DC'd home on Flagyl and Ceftin for 1 week along with increased dose of Bentyl. Patient to follow GI services for further management 2. Pancolitis continue with Rocephin and Flagyl 3. Abdominal CAT scan findings cannot exclude mass of the hepatic flexure versus inspissated stool cannot be excluded. GI following. 4. Hypokalemia: Potassium of 3 on admission likely secondary to diarrhea. Also will check a magnesium level. Potassium currently 3.9. Resolved. 5. UTI: Completed treatment during admission. Repeat urinalysis was negative. Continue Rocephin. She will be DC'd on Ceftin for one week 6. Family history of colon cancer: Both brother and father with colon cancer 7. History of rheumatoid arthritis 8. History of fibromyalgia 7. Diabetes mellitus type 2: Hold metformin during hospitalization. Add sliding scale coverage 8. History of GERD continue Protonix 9. History of stomach ulcers continue Protonix 10. History of uterine and ovarian cancer status post hysterectomy and oophorectomy 11. Essential hypertension continue the hydrochlorothiazide and metoprolol 12. Moderate protein calorie malnutrition: Add ensure twice a day Hospital course This is a 58-year-old female, patient of Dr. Cortez. She has a known past medical history of fibroid myalgia, rheumatoid arthritis, diverticulitis, diabetes mellitus, hypertension, GERD, stomach ulcers, uterine and ovarian cancer status post a total hysterectomy, melanoma. Patient has a strong family history of colon cancer both her brother and father had colon cancer. Brother at age 52. Patient presents to the emergency room with abnormal CAT scan findings. CAT scan had showed evidence of mild acute uncomplicated pancolitis. High density within the rectum could represent small polyps or stool products as there is lack of oral contrast within the rectum. It is difficult to exclude mass of the hepatic flexure versus and inspissated stool is there is confluence of stool and contrast at this location. Patient reports symptoms nausea, vomiting and diarrhea 2 weeks. She's having about 20 stools a day. She is reporting the color to be a dark black. And a few days ago she had noted some blood present in the stool. She denies any hematemesis. She reports anytime she eats anything she has both vomiting and diarrhea. She's been started on Rocephin and Flagyl for the pancolitis. GI has been consulted. White count is normal. Hemoglobin has dropped from 13.9-12.7. Sed rate normal at 17. C. diff is negative. Patient denies any chest pain or shortness of breath. Denies any burning with urination. She is using morphine and Hollis as needed for pain. She is complaining of a mild headache. Her last EGD and colonoscopy was about 3 years ago there were multiple polyps found, testing was completed at [facility]. On 02/20/2019 patient was seen and examined on the medical floor she is alert and oriented 3 in no apparent distress she is still complaining of abdominal pain and discomfort otherwise she denies any complaints there is no fever or chills no headache or dizziness no chest pain no shortness of breath no cough no nausea or vomiting no burning was urination no frequency or urgency and no hematuria. On 02/21/2019 patient is still complaining of severe abdominal pain, otherwise she denies any complaints at this time, there is no fever or chills no headache or dizziness no chest pain no shortness of breath no cough no nausea or vomiting no diarrhea no burning with urination no frequency or urgency and no hematuria. 02/22/2019 patient is still having severe lower abdominal pain. She did go under an EGD and colonoscopy over the weekend. EGD is showing antral gastritis and colonoscopy had one rectal polyp. Bentyl was started. The patient still has had no improvement in her abdominal pain. She is still having a lot of diarrhea. She had 10 stools yesterday and 4 this morning. Some of the stools are having blood. Hemoglobin is 12. She is having nausea but no vomiting. Denies any chest pain or shortness of breath. Complaining of vaginal yeast infection. And yeast in the groin area Diflucan and nystatin powder added. On 02/23/2019 patient is alert and oriented 3 continues to complain of abdominal pain 01/02. Patient states that she is having 10 stools per day, per patient and they are watery, she denies any blood present in stool. Hgb stable 12.6. CT scan reviewed will order enema due to increased colonic stool seen on scan. Flagyl continued. Patient is tolerating diet. Patient denies any shortn ess of breath, chest pain, nausea vomiting, dysuria, urinary frequency. On 02/24/2019 patient alert and oriented 3. Patient states she is now ready to be discharged home. Patient still having some loose stools. Per nursing staff patient did have small formed stool with this a.m. no signs of blood. Patient did have enema yesterday with bowel movements. Patient denies chest pain or shortness of breath. Patient denies nausea or vomiting. Patient to follow-up with GI services. Patient will be DC'd on Ceftin and Flagyl for 1 week along with increased dose of Bentyl I performed an examination of the patient and discussed their management with the Nurse Practitioner. I have reviewed the Nurse Practitioner's notes and agree with the documented findings and plan of care Patient Condition at Discharge: Stable Plan - Discharge Summary Discharge Rx Participant: Yes New Discharge Prescriptions: New Dicyclomine [Bentyl] 20 mg PO QID 30 Days #120 tab metroNIDAZOLE [Flagyl] 500 mg PO Q8HR 7 Days #21 tab Nystatin 100,000 Unit/gm Powd [Mycostatin Powder] 1 applic TOPICAL BID 10 Days #1 tube Cefuroxime Axetil [Ceftin] 500 mg PO BID 7 Days #14 tab Continue Pramipexole [Mirapex] 0.25 mg PO HS Baclofen [Lioresal] 10 mg PO HS tiZANidine HCL [Zanaflex] 4 mg PO DAILY clonazePAM [KlonoPIN] 1 mg PO DAILY Zolpidem Tartrate [Ambien Cr] 12.5 mg PO HS PRN PRN Reason: Insomnia Methocarbamol [Robaxin] 750 mg PO DAILY HYDROcodone/APAP 10-325MG [Hollis 10-325] 1 tab PO Q6HR PRN PRN Reason: Pain DULoxetine HCL [Cymbalta] 60 mg PO DAILY metFORMIN HCL [Glucophage] 500 mg PO BID Pregabalin [Lyrica] 225 mg PO BID Pantoprazole Sodium [Protonix] 40 mg PO DAILY Metoprolol Tartrate 25 mg PO BID Folic Acid 1 mg PO DAILY Famotidine [Pepcid] 20 mg PO BID Hydrochlorothiazide [Hydrodiuril] 25 mg PO DAILY Eluxadoline [Viberzi] 100 mg PO DAILY Discontinued Dicyclomine HCl 10 mg PO TID Discharge Medication List Baclofen [Lioresal] 10 mg PO HS 02/18/19 [History] DULoxetine HCL [Cymbalta] 60 mg PO DAILY 02/18/19 [History] Eluxadoline [Viberzi] 100 mg PO DAILY 02/18/19 [History] Famotidine [Pepcid] 20 mg PO BID 02/18/19 [History] Folic Acid 1 mg PO DAILY 02/18/19 [History] HYDROcodone/APAP 10-325MG [Hollis 10-325] 1 tab PO Q6HR PRN 02/18/19 [History] Hydrochlorothiazide [Hydrodiuril] 25 mg PO DAILY 02/18/19 [History] Methocarbamol [Robaxin] 750 mg PO DAILY 02/18/19 [History] Metoprolol Tartrate 25 mg PO BID 02/18/19 [History] Pantoprazole Sodium [Protonix] 40 mg PO DAILY 02/18/19 [History] Pramipexole [Mirapex] 0.25 mg PO HS 02/18/19 [History] Pregabalin [Lyrica] 225 mg PO BID 02/18/19 [History] Zolpidem Tartrate [Ambien Cr] 12.5 mg PO HS PRN 02/18/19 [History] clonazePAM [KlonoPIN] 1 mg PO DAILY 02/18/19 [History] metFORMIN HCL [Glucophage] 500 mg PO BID 02/18/19 [History] tiZANidine HCL [Zanaflex] 4 mg PO DAILY 02/18/19 [History] Cefuroxime Axetil [Ceftin] 500 mg PO BID 7 Days #14 tab 02/24/19 [Rx] Dicyclomine [Bentyl] 20 mg PO QID 30 Days #120 tab 02/24/19 [Rx] Nystatin 100,000 Unit/gm Powd [Mycostatin Powder] 1 applic TOPICAL BID 10 Days #1 tube 02/24/19 [Rx] metroNIDAZOLE [Flagyl] 500 mg PO Q8HR 7 Days #21 tab 02/24/19 [Rx] Follow up Appointment(s)/Referral(s): Niurka Laguna MD [REFERRING] - 1-2 days Erin De La Cruz MD [STAFF PHYSICIAN] - 1 Week Activity/Diet/Wound Care/Special Instructions: Activity as tolerated Diet as tolerated Discharge Disposition: HOME SELF-CARE
== END 2019-02-24 12:39 | disposition home or self-care (01) | DRG 386 ==
LOC: EC 16:12 → 3NMEDONC 21:17 → OBSVTOIN 02-19 14:33
PROVIDERS: ADMIT Internal Medicine; ATTEND Internal Medicine
PROC: 0DBP8ZX Excision of Rectum, Via Natural or Artificial Opening Endoscopic, Diagnostic (ICD-10-PCS; 2019-02-20)
PROC: 0DB98ZX Excision of Duodenum, Via Natural or Artificial Opening Endoscopic, Diagnostic (ICD-10-PCS; 2019-02-20)
PROC: 0DB78ZX Excision of Stomach, Pylorus, Via Natural or Artificial Opening Endoscopic, Diagnostic (ICD-10-PCS; 2019-02-20)
PROC: 0DBK8ZX Excision of Ascending Colon, Via Natural or Artificial Opening Endoscopic, Diagnostic (ICD-10-PCS; principal; 2019-02-20 07:30)
PROC: 0DBL8ZX Excision of Transverse Colon, Via Natural or Artificial Opening Endoscopic, Diagnostic (ICD-10-PCS; 2019-02-20 07:30)
PROC: 0DBB8ZX Excision of Ileum, Via Natural or Artificial Opening Endoscopic, Diagnostic (ICD-10-PCS; 2019-02-20 07:30)
DX: K51.00 Ulcerative (chronic) pancolitis without complications (principal); E44.0 Moderate protein-calorie malnutrition; N39.0 Urinary tract infection, site not specified; B37.2 Candidiasis of skin and nail; B37.3 Candidiasis of vulva and vagina; K62.1 Rectal polyp; Z80.0 Family history of malignant neoplasm of digestive organs; Z80.1 Family history of malignant neoplasm of trachea, bronchus and lung; E11.9 Type 2 diabetes mellitus without complications; E86.0 Dehydration; E87.6 Hypokalemia; I10 Essential (primary) hypertension; K21.9 Gastro-esophageal reflux disease without esophagitis; K29.70 Gastritis, unspecified, without bleeding; M06.9 Rheumatoid arthritis, unspecified; M79.7 Fibromyalgia; Z79.84 Long term (current) use of oral hypoglycemic drugs; Z79.899 Other long term (current) drug therapy; Z85.43 Personal history of malignant neoplasm of ovary; Z85.42 Personal history of malignant neoplasm of other parts of uterus; Z85.820 Personal history of malignant melanoma of skin; Z87.11 Personal history of peptic ulcer disease; Z87.891 Personal history of nicotine dependence; Z90.710 Acquired absence of both cervix and uterus; Z90.722 Acquired absence of ovaries, bilateral; Z91.040 Latex allergy status
CPT/HCPCS: 36415; 43239; 45382; 45385; 74177; 80053; 81001; 81003; 82150; 82272; 83605; 83630; 83690; 83735; 85025; 85027; 85652; 87045; 87046; 87324; 88305; 96361; 96365; 96367; 96375; 96376; 99285

== ENCOUNTER 2019-08-09 | Emergency (ER) | payer BC, MEDICARE | END 2019-08-09 10:33 | disposition home or self-care (01) | CPT/HCPCS: 29125; 99283 ==

== ENCOUNTER → 2019-10-08 | Outpatient (CLI) | payer BC, MEDICARE | END | disposition home or self-care (01) | LOC: LABWHC1 15:35 | PROVIDERS: ATTEND Family Medicine | DX: Z03.818 Encounter for observation for suspected exposure to other biological agents ruled out (principal) | CPT/HCPCS: 87635 ==

== ENCOUNTER 2020-04-12 16:50 | Emergency (ER) | payer BC, MEDICARE ==
[2020-04-12 17:09] VITALS: TEMP 98.7
[2020-04-12] MEDS ORDERED: IPRATROPIUM 0.5 MG/2.5 ML NEBU INHALATION STA (17:20)
[2020-04-12] MEDS ORDERED: ALBUTEROL NEBULIZED 2.5 MG/3 ML INHALATION STA (17:20)
[2020-04-12] MEDS ORDERED: methylPREDNISolone SOD SUCCI 125 MG/2 ML VIAL IM ONE (17:20)
--- NOTE | 2020-04-12 17:23 | ED ---
General Adult HPI - General Chief complaint: Shortness of Breath Stated complaint: SOB Time Seen by Provider: 04/12/20 17:10 Source: patient, RN notes reviewed, old records reviewed Mode of arrival: wheelchair Limitations: no limitations - History of Present Illness Initial comments: This is a 60-year-old female presents emergency pertinent complaining of difficulty breathing. Patient states she has a history of asthma. Patient states the last 2 weeks her breathing is gotten worse she states she's had low- grade fevers of 100.5 at worst. Patient states she also has some chills. Patient deniesany chest pain or palpitations. Patient denies any abdominal pain patient denies nausea vomiting diarrhea. patient denies any loss of smell or taste. Patient states she also has a mild headache. - Related Data Home Medications Medication Instructions Recorded Confirmed Baclofen [Lioresal] 10 mg PO HS 02/18/19 02/18/19 DULoxetine HCL [Cymbalta] 60 mg PO DAILY 02/18/19 02/18/19 Eluxadoline [Viberzi] 100 mg PO DAILY 02/18/19 02/18/19 Famotidine [Pepcid] 20 mg PO BID 02/18/19 02/18/19 Folic Acid 1 mg PO DAILY 02/18/19 02/18/19 HYDROcodone/APAP 10-325MG [Secretary 1 tab PO Q6HR PRN 02/18/19 02/18/19 10-325] Metoprolol Tartrate 25 mg PO BID 02/18/19 02/18/19 Pantoprazole Sodium [Protonix] 40 mg PO DAILY 02/18/19 02/18/19 Pramipexole [Mirapex] 0.25 mg PO HS 02/18/19 02/18/19 Pregabalin [Lyrica] 225 mg PO BID 02/18/19 02/18/19 Zolpidem Tartrate [Ambien Cr] 12.5 mg PO HS PRN 02/18/19 02/18/19 clonazePAM [KlonoPIN] 1 mg PO DAILY 02/18/19 02/18/19 hydroCHLOROthiazide [Hydrodiuril] 25 mg PO DAILY 02/18/19 02/18/19 metFORMIN HCL [Glucophage] 500 mg PO BID 02/18/19 02/18/19 methocarbamoL [Robaxin] 750 mg PO DAILY 02/18/19 02/18/19 tiZANidine HCL [Zanaflex] 4 mg PO DAILY 02/18/19 02/18/19 Previous Rx's Medication Instructions Recorded Cefuroxime Axetil [Ceftin] 500 mg PO BID 7 Days #14 tab 02/24/19 Dicyclomine [Bentyl] 20 mg PO QID 30 Days #120 tab 02/24/19 Nystatin 100,000 Unit/gm Powd 1 applic TOPICAL BID 10 Days #1 02/24/19 [Mycostatin Powder] tube metroNIDAZOLE [Flagyl] 500 mg PO Q8HR 7 Days #21 tab 02/24/19 Albuterol Inhaler [Ventolin Hfa 2 puff INHALATION RT-QID #2 puff 04/12/20 Inhaler] predniSONE [Deltasone] 40 mg PO DAILY #8 tab 04/12/20 Allergies Allergy/AdvReac Type Severity Reaction Status Date / Time banana Allergy Unknown Verified 04/12/20 17:09 coconut Allergy Unknown Verified 04/12/20 17:09 latex Allergy Rash/Hives Verified 04/12/20 17:09 wool Allergy Rash/Hives Verified 04/12/20 17:09 Review of Systems ROS Statement: Those systems with pertinent positive or pertinent negative responses have been documented in the HPI. ROS Other: All systems not noted in ROS Statement are negative. Past Medical History Past Medical History: Fibromyalgia, GERD/Reflux, Rheumatoid Arthritis (RA) Additional Past Medical History / Comment(s): diverticultis History of Any Multi-Drug Resistant Organisms: C-DIFF Date of last positivie culture/infection: 02/17/2018 MDRO Source:: stool Past Surgical History: Appendectomy, Back Surgery, Cholecystectomy, Hysterectomy Additional Past Surgical History / Comment(s): cataract, bladder sling Past Anesthesia/Blood Transfusion Reactions: No Reported Reaction Past Psychological History: No Psychological Hx Reported Smoking Status: Never smoker Past Alcohol Use History: None Reported Past Drug Use History: None Reported - Past Family History Father Family Medical History: Cancer Additional Family Medical History / Comment(s): colon cancer Brother(s) Family Medical History: Cancer Additional Family Medical History / Comment(s): colon cancer Mother Family Medical History: Cancer Additional Family Medical History / Comment(s): metastatic lung cancer General Exam - General Exam Comments Initial Comments: GENERAL: Patient is well-developed and well-nourished. Patient is nontoxic and well- hydrated and is in no acute distress. ENT: Neck is soft and supple. No significant lymphadenopathy is noted. Oropharynx is clear. Moist mucous membranes. Neck has full range of motion without eliciting any pain. EYES: The sclera were anicteric and conjunctiva were pink and moist. Extraocular movements were intact and pupils were equal round and reactive to light. Eyelids were unremarkable. PULMONARY: patient has some expiratory wheezing. CARDIOVASCULAR: There is a regular rate and rhythm without any murmurs gallops or rubs. ABDOMEN: Soft and nontender with normal bowel sounds. SKIN: Skin is clear with no lesions or rashes and otherwise unremarkable. NEUROLOGIC: Patient is alert and oriented x3. Cranial nerves II through XII are grossly intact. Motor and sensory are also intact. Normal speech, volume and content. Symmetrical smile. MUSCULOSKELETAL: Normal extremities with adequate strength and full range of motion. No lower extremity swelling or edema. No calf tenderness. LYMPHATICS: No significant lymphadenopathy is noted PSYCHIATRIC: Normal psychiatric evaluation. Limitations: no limitations Course Vital Signs 04/12/20 04/12/20 04/12/20 17:07 17:36 18:01 Temperature 98.7 F Pulse Rate 88 68 Respiratory 16 18 16 Rate Blood Pressure 111/86 O2 Sat by Pulse 97 Oximetry 04/12/20 04/12/20 18:09 18:14 Temperature Pulse Rate 79 71 Respiratory 22 16 Rate Blood Pressure 133/83 O2 Sat by Pulse 96 Oximetry Medical Decision Making - Medical Decision Making chest x-ray shows no acute abnormality. Patient received 2 breathing treatments and steroids. I went back and reevaluated the patient she was feeling better her pulse ox on room air was 99- 100%. Patient's lungs were clear.patient states she's already on Augmentin Disposition Clinical Impression: Exacerbation of asthma Disposition: HOME SELF-CARE Condition: Good Instructions (If sedation given, give patient instructions): Asthma (ED) Prescriptions: predniSONE [Deltasone] 40 mg PO DAILY #8 tab Albuterol Inhaler [Ventolin Hfa Inhaler] 2 puff INHALATION RT-QID #2 puff Is patient prescribed a controlled substance at d/c from ED?: No Referrals: Andressa Chambers MD [Primary Care Provider] - 1-2 days
--- NOTE | 2020-04-12 17:51 | XR ---
EXAMINATION TYPE: XR chest 2V DATE OF EXAM: 04/12/2020 COMPARISON: NONE HISTORY: Shortness of breath. TECHNIQUE: Frontal and lateral views of the chest are obtained. FINDINGS: There is no focal air space opacity, pleural effusion, or pneumothorax seen. The cardiac silhouette size is within normal limits. The osseous structures are otherwise intact. Rico ro ds are noted. IMPRESSION: No acute cardiopulmonary process.
[2020-04-12 18:15] VITALS: PULSE 71; RESP 16
[2020-04-12 18:21] VITALS: BP 133/83
== END 2020-04-12 18:40 | disposition home or self-care (01) ==
LOC: EC 16:50
DX: J45.901 Unspecified asthma with (acute) exacerbation (principal); M79.7 Fibromyalgia; K21.9 Gastro-esophageal reflux disease without esophagitis; M06.9 Rheumatoid arthritis, unspecified; Z79.899 Other long term (current) drug therapy; Z79.84 Long term (current) use of oral hypoglycemic drugs; Z91.018 Allergy to other foods; Z91.040 Latex allergy status; Z91.09 Other allergy status, other than to drugs and biological substances
CPT/HCPCS: 94640; 71046; 99285; 96372; J2930

== ENCOUNTER → 2020-10-17 | Outpatient (CLI) | payer OTHER, MEDICARE ==
--- NOTE | 2020-10-17 20:55 | CT ---
EXAMINATION TYPE: CT sinus wo con DATE OF EXAM: 10/17/2020 COMPARISON: None HISTORY: 60-year-old female J32.[address] and headaches CT DLP: 442.3 mGycm Automated exposure control for dose reduction was used. TECHNIQUE: Noncontrast axial views of the paranasal sinuses were obtained. Coronal reconstructions pe rformed. FINDINGS: PARANASAL SINUSES: Moderate mucosal thickening left maxillary sinus, severe within the right maxillary sinus. Mild mucosal thickening ethmoid air cells. Frontal and sphenoid sinuses are relatively pneumatized. There is no air-fluid level. Reactive jane- osteogenesis is not seen. There is no destruction of the osseous butcher of the paranasal sinuses. THE NASAL CAVITY: The osteomeatal complexes are widely patent given prior medial maxillary antrectomies. Slight rightward nasal septal deviation. The imaged brain and orbits are normal in appearance. Mastoid air cells and middle ear cavities are well pneumatized. Reformatted images confirm above findings. IMPRESSION: Prior FESS with severe chronic right maxillary sinus disease. Moderate mucosal thickening left maxill ariane sinus and mild within the ethmoid air cells.
== END | disposition home or self-care (01) ==
LOC: RADCTMAIN 16:02
PROVIDERS: ATTEND Otolaryngology
DX: J32.0 Chronic maxillary sinusitis (principal)
CPT/HCPCS: 70486

== ENCOUNTER 2021-01-31 14:39 | Emergency (ER) | payer OTHER, MEDICARE ==
[2021-01-31 15:15] VITALS: RESP 18; TEMP 98.2
[2021-01-31] MEDS ORDERED: Acetaminophen-Codeine 300-30mg TAB PO STA (15:27)
[2021-01-31 15:54] LABS: Basophils # (A) 0.1 k/uL (0-0.2); Basophils % (A) 1 %; Eosinophils # (A) 0.3 k/uL (0-0.7); Eosinophils % (A) 4 %; HCT 42.2 % (34.0-46.0); HGB 13.6 gm/dL (11.4-16.0); Lymphocytes # (A) 1.4 k/uL (1.0-4.8); Lymphocytes % (A) 20 %; MCH 28.1 pg (25.0-35.0); MCHC 32.3 g/dL (31.0-37.0); Mean Platelet Volume 7.1; Monocytes # (A) 0.4 k/uL (0-1.0); Monocytes % (A) 6 %; Neutrophils # (A) 4.8 k/uL (1.3-7.7); Neutrophils % (A) 68 %; Platelet Count 345 k/uL (150-450); RBC 4.86 m/uL (3.80-5.40); RDW 15.6 % (11.5-15.5); WBC 7.1 k/uL (3.8-10.6)
[2021-01-31 16:06] LABS: Albumin 4.2 g/dL (3.5-5.0); Calcium 9.6 mg/dL (8.4-10.2); Total Bilirubin 0.2 mg/dL (0.2-1.3); Total Protein 7.5 g/dL (6.3-8.2)
--- NOTE | 2021-01-31 16:07 | XR ---
EXAMINATION TYPE: XR tibia fibula LT DATE OF EXAM: 01/31/2021 COMPARISON: NONE HISTORY: Pain TECHNIQUE: Two views are submitted. FINDINGS: The osseous structures are intact. The joint spaces are preserved. Soft tissue calcifications are n oted. Tiny spur along the medial malleolus incidentally noted. Tiny calcaneal spur noted. IMPRESSION: 1. No acute osseous abnormality.
--- NOTE | 2021-01-31 16:58 | US ---
EXAMINATION TYPE: US venous doppler duplex LE LT DATE OF EXAM: 01/31/2021 4:51 PM COMPARISON: NONE CLINICAL HISTORY: pain. Left leg pain SIDE PERFORMED: Left TECHNIQUE: The lower extremity deep venous system is examined utilizing real time linear array sonog antonia with graded compression, doppler sonography and color-flow sonography. VESSELS IMAGED: Common Femoral Vein Deep Femoral Vein Greater Saphenous Vein * Femoral Vein Popliteal Vein Small Saphenous Vein * Proximal Calf Veins (* superficial vessels) Left Leg: Appears negative for DVT IMPRESSION: No evidence of left lower extremity DVT.
--- NOTE | 2021-01-31 17:13 | ED ---
Lower Extremity Injury HPI - General Chief Complaint: Extremity Injury, Lower Stated Complaint: L Leg Pain Time Seen by Provider: 01/31/21 15:16 Source: patient, RN notes reviewed Mode of arrival: wheelchair Limitations: no limitations - History of Present Illness Initial Comments: 60-year-old female presents to emergency room complaining of left schilling pain. She notes that she tripped over a vacuum cord and skinned her schilling approximately 2-3 weeks ago. She notes that she has some bumps in her skin or painful. The area where the scrape is was minimally tender. She notes she was sent by primary care to rule out a clot due to continuing pain. Patient was otherwise a well-appearing 60-year-old female in no apparent distress or pain. She denied any chest pain shortness of breath headache nausea vomiting diarrhea constipation fever fatigue chills. - Related Data Home Medications Medication Instructions Recorded Confirmed Famotidine [Pepcid] 20 mg PO BID 02/18/19 01/31/21 Folic Acid 1 mg PO DAILY 02/18/19 01/31/21 HYDROcodone/APAP 10-325MG [Cobb 1 tab PO Q4H PRN 02/18/19 01/31/21 10-325] Metoprolol Tartrate 25 mg PO BID 02/18/19 01/31/21 Pantoprazole Sodium [Protonix] 40 mg PO DAILY 02/18/19 01/31/21 Pramipexole [Mirapex] 0.5 mg PO HS 02/18/19 01/31/21 Pregabalin [Lyrica] 225 mg PO BID 02/18/19 01/31/21 hydroCHLOROthiazide [Hydrodiuril] 25 mg PO DAILY 02/18/19 01/31/21 tiZANidine HCL [Zanaflex] 4 mg PO HS 02/18/19 01/31/21 Albuterol Inhaler [Ventolin Hfa 2 puff INHALATION RT-QID PRN 01/31/21 01/31/21 Inhaler] Dicyclomine HCl 10 mg PO TID 01/31/21 01/31/21 Fenofibrate Nanocrystallized 145 mg PO DAILY 01/31/21 01/31/21 [Fenofibrate] Furosemide [Lasix] 20 mg PO DAILY PRN 01/31/21 01/31/21 Nitrofurantoin Monohyd/M-Cryst 100 mg PO Q12HR 01/31/21 01/31/21 [Macrobid] Nystatin 100,000 Unit/gm Powd 1 applic TOPICAL BID PRN 01/31/21 01/31/21 [Mycostatin Powder] ZOLMitriptan 5 mg PO BID PRN 01/31/21 01/31/21 Zolpidem Tartrate [Ambien] 10 mg PO HS PRN 01/31/21 01/31/21 valACYclovir HCL [Valtrex] 1,000 mg PO TID PRN 01/31/21 01/31/21 Allergies Allergy/AdvReac Type Severity Reaction Status Date / Time banana Allergy Unknown Verified 01/31/21 16:01 coconut Allergy Unknown Verified 01/31/21 16:01 latex Allergy Rash/Hives Verified 01/31/21 16:01 wool Allergy Rash/Hives Verified 01/31/21 16:01 Review of Systems ROS Statement: Those systems with pertinent positive or pertinent negative responses have been documented in the HPI. ROS Other: All systems not noted in ROS Statement are negative. Past Medical History Past Medical History: Fibromyalgia, GERD/Reflux, Rheumatoid Arthritis (RA) Additional Past Medical History / Comment(s): diverticultis History of Any Multi-Drug Resistant Organisms: C-DIFF Date of last positivie culture/infection: 02/17/2018 MDRO Source:: stool Past Surgical History: Appendectomy, Back Surgery, Cholecystectomy, Hysterectomy Additional Past Surgical History / Comment(s): cataract, bladder sling Past Anesthesia/Blood Transfusion Reactions: No Reported Reaction Past Psychological History: No Psychological Hx Reported Smoking Status: Never smoker Past Alcohol Use History: None Reported Past Drug Use History: None Reported - Past Family History Father Family Medical History: Cancer Additional Family Medical History / Comment(s): colon cancer Brother(s) Family Medical History: Cancer Additional Family Medical History / Comment(s): colon cancer Mother Family Medical History: Cancer Additional Family Medical History / Comment(s): metastatic lung cancer General Exam Limitations: no limitations General appearance: alert, in no apparent distress, obese Head exam: Present: atraumatic, normocephalic, normal inspection Eye exam: Present: normal appearance, PERRL, EOMI. Absent: scleral icterus, conjunctival injection, periorbital swelling Neck exam: Present: normal inspection Respiratory exam: Present: normal lung sounds bilaterally. Absent: respiratory distress, wheezes, rales, rhonchi, stridor Cardiovascular Exam: Present: regular rate, normal rhythm, normal heart sounds. Absent: systolic murmur, diastolic murmur, rubs, gallop, clicks Extremities exam: Present: normal inspection, full ROM, normal capillary refill. Absent: tenderness, pedal edema, joint swelling, calf tenderness Left Lower Leg exam: Present: full ROM, tenderness (Anterior schilling), swelling (Minimal), abrasion (Healing anterior schilling). Absent: normal inspection (Healing wound, non-erythematous, no signs or symptoms of infection), laceration, ecchymosis, deformity, crepitus, dislocation Neurological exam: Present: alert, oriented X3 Psychiatric exam: Present: normal affect, normal mood Skin exam: Present: warm, dry, intact, normal color. Absent: rash Course Vital Signs 01/31/21 01/31/21 15:13 17:31 Temperature 98.2 F Pulse Rate 90 81 Respiratory 18 18 Rate Blood Pressure 117/79 130/87 O2 Sat by Pulse 95 99 Oximetry Medical Decision Making - Medical Decision Making 60-year-old female complaining of left lower leg pain, prescription schilling 2-3 weeks ago. Sent by primary care for possible DVT. Ultrasound lower extremity, x-ray of the left lower extremity, basic labs, Tylenol 3 ordered. Ultrasound negative for any DVT. X-ray negative for any acute fractures dislocations. Labs unremarkable. Case discussed with Dr. Aguilera, patient discharge home. - Lab Data Result diagrams: 01/31/21 15:43 01/31/21 15:43 Lab Results 01/31/21 01/31/21 Range/Units 15:43 15:43 WBC 7.1 (3.8-10.6) k/uL RBC 4.86 (3.80-5.40) m/uL Hgb 13.6 (11.4-16.0) gm/dL Hct 42.2 (34.0-46.0) % MCV 87.0 (80.0-100.0) fL MCH 28.1 (25.0-35.0) pg MCHC 32.3 (31.0-37.0) g/dL RDW 15.6 H (11.5-15.5) % Plt Count 345 (150-450) k/uL MPV 7.1 Neutrophils % 68 % Lymphocytes % 20 % Monocytes % 6 % Eosinophils % 4 % Basophils % 1 % Neutrophils # 4.8 (1.3-7.7) k/uL Lymphocytes # 1.4 (1.0-4.8) k/uL Monocytes # 0.4 (0-1.0) k/uL Eosinophils # 0.3 (0-0.7) k/uL Basophils # 0.1 (0-0.2) k/uL Sodium 141 (137-145) mmol/L Potassium 4.0 (3.5-5.1) mmol/L Chloride 105 (98-107) mmol/L Carbon Dioxide 25 (22-30) mmol/L Anion Gap 11 mmol/L BUN 23 H (7-17) mg/dL Creatinine 1.05 H (0.52-1.04) mg/dL Est GFR (CKD-EPI)AfAm 68 (>60 ml/min/1.73 sqM) Est GFR (CKD-EPI)NonAf 59 (>60 ml/min/1.73 sqM) Glucose 109 H (74-99) mg/dL Calcium 9.6 (8.4-10.2) mg/dL Total Bilirubin 0.2 (0.2-1.3) mg/dL AST 30 (14-36) U/L ALT 29 (4-34) U/L Alkaline Phosphatase 93 (38-126) U/L Total Protein 7.5 (6.3-8.2) g/dL Albumin 4.2 (3.5-5.0) g/dL - Radiology Data Radiology results: report reviewed, image reviewed Ultrasound left lower extremity: No evidence of left lower extremity DVT. X-ray left tib-fib: No acute osseous abnormality. Disposition Clinical Impression: Left leg pain Disposition: HOME SELF-CARE Condition: Stable Instructions (If sedation given, give patient instructions): Leg Pain (ED) Additional Instructions: Please return to the Emergency Department if symptoms worsen or any other concerns. Follow-up with primary care 1-2 days. Tylenol Motrin as needed for pain. Is patient prescribed a controlled substance at d/c from ED?: No Referrals: Andressa Chambers MD [Primary Care Provider] - 1-2 days Time of Disposition: 17:34
[2021-01-31 17:33] VITALS: BP 130/87; PULSE 81
== END 2021-01-31 17:57 | disposition home or self-care (01) ==
LOC: EC 14:39
DX: M79.662 Pain in left lower leg (principal); K21.9 Gastro-esophageal reflux disease without esophagitis; M06.9 Rheumatoid arthritis, unspecified; Z91.040 Latex allergy status; Z91.018 Allergy to other foods; Z90.49 Acquired absence of other specified parts of digestive tract; Z90.710 Acquired absence of both cervix and uterus
CPT/HCPCS: 36415; 80053; 85025; 99284

== ENCOUNTER → 2021-02-16 | Outpatient (CLI) | payer OTHER, MEDICARE ==
--- NOTE | 2021-02-19 08:55 | MM ---
Reason for exam: additional evaluation requested from prior study. Last mammogram was performed 3 years and 11 months ago. History: Patient history of other cancer. Took hormonal contraceptives for 10 years beginning at age 20. Took estrogen for 10 years. Physical Findings: Nurse did not find any significant physical abnormalities on exam. MG 3D Diag Mammo W/Cad AILEEN Bilateral CC and MLO view(s) were taken. Prior study comparison: March 06, 2017, mammogram, performed at [facility]. February 27, 2017, mammogram, performed at [facility]. There are scattered fibroglandular densities. There is no discrete abnormality. No significant new findings when compared with previous films. These results were verbally communicated with the patient and result sheet given to the patient on 02/16/21. ASSESSMENT: Negative, BI-RAD 1 RECOMMENDATION: Routine screening mammogram of both breasts in 1 year.
== END | disposition home or self-care (01) ==
LOC: RADMAMWWP 14:57
PROVIDERS: ATTEND Family Medicine
DX: R92.2 Inconclusive mammogram (principal); Z85.89 Personal history of malignant neoplasm of other organs and systems
CPT/HCPCS: 77062; 77066

== ENCOUNTER 2022-11-04 09:14 | Observation (INO) | payer BC, MEDICARE ==
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
[2022-11-04 10:37] LABS: Basophils % (A) 0 %; Eosinophils # (A) 0.3 k/uL (0-0.7); Eosinophils % (A) 5 %; HCT 43.2 % (34.0-46.0); HGB 14.2 gm/dL (11.4-16.0); Lymphocytes # (A) 1.3 k/uL (1.0-4.8); Lymphocytes % (A) 21 %; MCH 29.7 pg (25.0-35.0); MCHC 32.9 g/dL (31.0-37.0); MCV 90.4 fL (80.0-100.0); Mean Platelet Volume 7.7; Monocytes # (A) 0.4 k/uL (0-1.0); Monocytes % (A) 6 %; Neutrophils # (A) 4.1 k/uL (1.3-7.7); Neutrophils % (A) 67 %; Platelet Count 291 k/uL (150-450); RBC 4.78 m/uL (3.80-5.40); RDW 14.3 % (11.5-15.5); WBC 6.2 k/uL (3.8-10.6)
[2022-11-04 10:46] LABS: ALT 54 U/L (4-34); AST 52 U/L (14-36); Acetaminophen <10.0 ug/mL; African American GFR (CKD) 67 (>60 ml/min/1.73 sqM); Albumin 3.9 g/dL (3.5-5.0); Alkaline Phosphatase 55 U/L (38-126); Anion Gap 6 mmol/L; Blood Urea Nitrogen 27 mg/dL (7-17); Calcium 9.2 mg/dL (8.4-10.2); Carbon Dioxide 33 mmol/L (22-30); Chloride 102 mmol/L (98-107); Glucose 93 mg/dL (74-99); Non-African American GFR(CKD) 58 (>60 ml/min/1.73 sqM); Potassium 3.7 mmol/L (3.5-5.1); Salicylate <1.0 mg/dL; Sodium 141 mmol/L (137-145); Total Bilirubin 0.3 mg/dL (0.2-1.3); Total Protein 6.7 g/dL (6.3-8.2)
--- NOTE | 2022-11-04 10:52 | XR ---
EXAMINATION TYPE: XR chest 2V DATE OF EXAM: 11/04/2022 COMPARISON: 04/12/2020 HISTORY: Shortness of breath TECHNIQUE: Frontal and lateral views of the chest are obtained. FINDINGS: Scattered senescent parenchymal changes noted. Hyperinflation compatible with COPD. No evidence for infiltrate. No evidence for atelectasis. Heart size is stable. Mediastinal structures are stable and grossly unremarkable. No evidence for hilar prominence. Degenerative changes dorsal spine. Noted are Rico rods. IMPRESSION: 1. No evidence for acute pulmonary disease.
[2022-11-04 10:55] LABS: Partial Thromboplastin Time 22.1 sec (22.0-30.0); Prothrombin Time 10.4 sec (9.0-12.0)
--- NOTE | 2022-11-04 10:56 | CT ---
EXAMINATION TYPE: CT brain wo con DATE OF EXAM: 11/04/2022 COMPARISON: None INDICATION: AMS DLP: 1172.4 mGycm, Automated exposure control for dose reduction was used. CONTRAST: None CT of the brain is performed utilizing 3 mm thick sections through the posterior fossa and 3 mm thick sections through the remaining calvarium. Study is performed within 24 hours of arrival to the hosp ital. There is a tiny density change within the medial right basal ganglion, series 201 image 31. This is n onspecific. Hemorrhage is not entirely excluded. Vascular anomaly may be present. No adjacent edema i s identified. Recommend follow-up MRI with contrast. No mass lesion is evident. No acute infarcts are evident. Ventricles and sulci are appropriate for the patient age. Paranasal sinuses and mastoid air cells within the [id number] are clear. Report was called to the emergency room physician by Dr. Villalobos by telephone at 1050 hours 11/04/2022 at the time of interpretation. IMPRESSIONS: 1. 0.5 cm slightly hyperdense area within the medial right basal ganglia. Tiny petechial hemorrhage cannot be excluded. Finding is nonspecific. Additional workup with contrast MRI recommended.
[2022-11-04] MEDS ORDERED: KETOROLAC 15 MG/ML 1 ML VIAL IVP PRN (11:19)
[2022-11-04] MEDS ORDERED: ONDANSETRON 4 MG/2 ML VIAL IVP PRN (11:19)
[2022-11-04] MEDS ORDERED: HYDROcodone/APAP 5-325MG 1 EACH TAB PO PRN (11:19)
[2022-11-04] MEDS ORDERED: NALOXONE 0.4 MG/ML 1 ML VIAL IV PRN (11:19)
[2022-11-04] MEDS ORDERED: ACETAMINOPHEN TAB 325 MG TAB PO PRN (11:19)
[2022-11-04 14:16] LABS: Appearance,Urine Clear (Clear); Bilirubin,Urine Negative (Negative); Blood,Urine Negative (Negative); Color,Urine Light Yellow; Glucose,Urine (UA) Negative (Negative); Ketones,Urine Negative (Negative); Leukocyte Esterase,Urine Moderate (Negative); Nitrite,Urine Negative (Negative); Protein,Urine Negative (Negative); RBC,Urine 2 /hpf (0-5); Specific Gravity,Urine 1.014 (1.001-1.035); Squamous Epithelial Cell,Urine <1 /hpf (0-4); Urobilinogen,Urine <2.0 mg/dL (<2.0); WBC,Urine 11 /hpf (0-5)
[2022-11-04] MEDS ORDERED: FAMOTIDINE 20 MG TAB PO PRN (14:24)
[2022-11-04 14:36] LABS: Amphetamine Screen,Urine Not Detected (NotDetected); Barbiturate Screen,Urine Not Detected (NotDetected); Benzodiazepines Screen,Urine Not Detected (NotDetected); Cocaine Screen,Urine Not Detected (NotDetected); Methadone Screen, Urine Not Detected (NotDetected); Opiate Screen,Urine Detected (NotDetected); Oxycodone Screen, Urine Not Detected (NotDetected); Phencyclidine Screen,Urine Not Detected (NotDetected); Tricyclic Antidepressant,Urine Detected (NotDetected); Urn Cannabinoid Scrn Not Detected (NotDetected)
--- NOTE | 2022-11-04 14:39 | P.HPIM ---
History of Present Illness 62-year-old female was brought in by police after patient was found roaming around with altered mental status over the road. They found her to be slurring with laser pupils. Patient did not have any alcohol intoxication. Patient is a able to provide a history but unable to tell me why she is confused patient had similar episode in the past. Patient denied any focal weakness. Urine drug screen is still pending patient on multiple medications that can cause confusion including Zanaflex, Ambien,elavil, Bentyl, Lyrica. Patient denied any UTI symptoms doesn't have any evidence of sepsis at this time. Patient is alert oriented 3 at this time family at the bedside, unable to obtain much of the history that any that can explain her altered mental status from either family or the patient. REVIEW OF SYSTEMS: CONSTITUTIONAL: No fever, no malaise, no fatigue. HEENT: No recent visual problems or hearing problems. Denied any sore throat. CARDIOVASCULAR: No chest pain, orthopnea, PND, no palpitations, no syncope. PULMONARY: No shortness of breath, no cough, no hemoptysis. GASTROINTESTINAL: No diarrhea, no nausea, no vomiting, no abdominal pain. NEUROLOGICAL: No headaches, no weakness, no numbness. HEMATOLOGICAL: Denies any bleeding or petechiae. GENITOURINARY: Denies any burning micturition, frequency, or urgency. MUSCULOSKELETAL/RHEUMATOLOGICAL: Denies any joint pain, swelling, or any muscle pain. ENDOCRINE: Denies any polyuria or polydipsia. The rest of the 14-point review of systems is negative. PHYSICAL EXAMINATION: GENERAL: The patient is alert and oriented x3, not in any acute distress. Well developed, well nourished. HEENT: Pupils are round and equally reacting to light. EOMI. No scleral icterus. No conjunctival pallor. Normocephalic, atraumatic. No pharyngeal erythema. No thyromegaly. CARDIOVASCULAR: S1 and S2 present. No murmurs, rubs, or gallops. PULMONARY: Chest is clear to auscultation, no wheezing or crackles. ABDOMEN: Soft, nontender, nondistended, normoactive bowel sounds. No palpable organomegaly. MUSCULOSKELETAL: No joint swelling or deformity. EXTREMITIES: No cyanosis, clubbing, or pedal edema. NEUROLOGICAL: Gross neurological examination did not reveal any focal deficits. SKIN: No rashes. Assessment and plan -Altered mental status, encephalopathy probably toxicants allotted from polypharmacy urine drug screen is still pending. Neurology was consulted patient is undergoing EEG and an MRI. Ruling out stroke -Mild acute renal failure with elevated BUN/creatinine secondary to chlorthalidone and Lasix for peripheral edema. Will hold of these medications for now patient probably can use Lasix on as-needed basis but not chlorthalidone for peripheral edema. -Mild transaminitis no further workup is necessary we will repeat compresses metabolic profile again -Fibromyalgia -Gastroesophageal reflux disease Rheumatoid arthritis DVT prophylaxis: Lovenox Past Medical History Past Medical History: Fibromyalgia, GERD/Reflux, Rheumatoid Arthritis (RA) Additional Past Medical History / Comment(s): diverticultis History of Any Multi-Drug Resistant Organisms: C-DIFF Date of last positivie culture/infection: 02/17/2018 MDRO Source:: stool Past Surgical History: Appendectomy, Back Surgery, Cholecystectomy, Hysterectomy Additional Past Surgical History / Comment(s): cataract, bladder sling Past Anesthesia/Blood Transfusion Reactions: No Reported Reaction Past Psychological History: No Psychological Hx Reported Smoking Status: Never smoker Past Alcohol Use History: None Reported Past Drug Use History: None Reported - Past Family History Father Family Medical History: Cancer Additional Family Medical History / Comment(s): colon cancer Brother(s) Family Medical History: Cancer Additional Family Medical History / Comment(s): colon cancer Mother Family Medical History: Cancer Additional Family Medical History / Comment(s): metastatic lung cancer Medications and Allergies Home Medications Medication Instructions Recorded Confirmed Type Famotidine [Pepcid] 20 mg PO BID PRN 02/18/19 11/04/22 History Folic Acid 1 mg PO DAILY 02/18/19 11/04/22 History Pantoprazole Sodium [Protonix] 40 mg PO DAILY 02/18/19 11/04/22 History tiZANidine HCL [Zanaflex] 4 mg PO HS PRN 02/18/19 11/04/22 History Furosemide [Lasix] 20 mg PO DAILY 01/31/21 11/04/22 History Zolpidem Tartrate [Ambien] 10 mg PO HS PRN 01/31/21 11/04/22 History Amitriptyline HCl [Elavil] 50 mg PO HS 11/04/22 11/04/22 History Chlorthalidone 100 mg PO DAILY 11/04/22 11/04/22 History Dicyclomine [Bentyl] 20 mg PO BID PRN 11/04/22 11/04/22 History Escitalopram [Lexapro] 10 mg PO DAILY 11/04/22 11/04/22 History Fenofibrate,Micronized 134 mg PO DAILY 11/04/22 11/04/22 History [Fenofibrate] Liraglutide [Victoza 2-Reese] 1.8 mg SQ DAILY 11/04/22 11/04/22 History Pregabalin [Lyrica] 200 mg PO TID 11/04/22 11/04/22 History Allergies Allergy/AdvReac Type Severity Reaction Status Date / Time banana Allergy Unknown Verified 11/04/22 10:18 coconut Allergy Unknown Verified 11/04/22 10:18 latex Allergy Rash/Hives Verified 11/04/22 10:18 wool Allergy Rash/Hives Verified 11/04/22 10:18 Physical Exam Vitals: Vital Signs Temp Pulse Resp BP Pulse Ox 11/04/22 14:07 97.5 F L 78 18 122/75 98 11/04/22 13:22 97.4 F L 77 18 106/72 99 11/04/22 09:20 98.0 F 99 16 118/84 97 Intake and Output 11/03/22 11/04/22 11/04/22 22:59 06:59 14:59 Other: Weight 59.874 kg Results CBC & Chem 7: 11/04/22 10:11 11/04/22 10:11 Labs: Abnormal Lab Results - Last 24 Hours (Table) 11/04/22 11/04/22 11/04/22 Range/Units 10:11 10:11 10:11 Carbon Dioxide 33 H (22-30) mmol/L BUN 27 H (7-17) mg/dL Creatinine 1.05 H (0.52-1.04) mg/dL AST 52 H (14-36) U/L ALT 54 H (4-34) U/L Ur Leukocyte Esterase Moderate H (Negative) Urine WBC 11 H (0-5) /hpf Urine Opiates Screen Detected H (NotDetected) U Tricyclic Antidepress Detected H (NotDetected)
[2022-11-04] MEDS: PREGABALIN 100 MG CAP PO SCH ×2 (15:57→21:08)
[2022-11-04] MEDS: ASPIRIN 81 MG PO SCH (21:08)
--- NOTE | 2022-11-04 22:16 | US ---
EXAMINATION TYPE: US carotid duplex BILAT DATE OF EXAM: 11/04/2022 COMPARISON: NONE CLINICAL INDICATION: Female, 62 years old with history of Altered mental status; AMS TECHNIQUE: Carotid duplex ultrasound examination. Indirect Doppler criteria was utilized. FINDINGS: EXAM MEASUREMENTS: RIGHT: Peak Systolic Velocity (PSV) cm/sec ----- Right CCA: 74.2 ----- Right ICA: 87.3 ----- Right ECA: 71.6 ICA/CCA ratio: 1.2 RIGHT: End Diastole cm/sec ----- Right CCA: 20.7 ----- Right ICA: 37.7 ----- Right ECA: 14.2 LEFT: Peak Systolic Velocity (PSV) cm/sec ----- Left CCA: 62.0 ----- Left ICA: 65.9 ----- Left ECA: 67.3 ICA/CCA ratio: 1.1 LEFT: End Diastole cm/sec ----- Left CCA: 18.0 ----- Left ICA: 24.5 ----- Left ECA: 15.6 VERTEBRALS (direction of flow): Right Vertebral: Antegrade Left Vertebral: Antegrade Rhythm: Normal [employer] NOTES: No significant stenosis seen IMPRESSION: Less than 50% stenosis of the bilateral carotid bifurcations. Criteria for Assigning % of Stenosis / Diameter reduction (Estimation based on the indirect measurements of the internal carotid artery velocities (ICA PSV). 1. Normal (no stenosis)=ICA PSV < 125 cm/s: ratio < 2.0: ICA EDV<40 cm/s. 2. Less than 50% stenosis=ICA PSV < 125 cm/s: ratio < 2.0: ICA EDV<40 cm/s. 3. 50 to 69% stenosis=ICA PSV of 125 to 230 cm/s: ration 2.0 ? 4.0: ICA EDV 40-100 cm/s. 4. Greater than 70% stenosis to near occlusion= ICA PSV > 230 cm/s: ratio > 4.0: ICA EDV > 100 cm/s. 5. Near occlusion= ICA PSV velocities may be low or undetectable: variable ratio and ICA EDV. 6. Total occlusion=unable to detect flow.
[2022-11-04] MEDS: TEMAZEPAM 7.5 MG CAP PO PRN (22:40)
--- NOTE | 2022-11-04 23:36 | EEG ---
ELECTROENCEPHALOGRAM REPORT PREAMBLE: This is a 62-year-old male with altered mental status, rule out seizure. EEG FINDINGS: This is a 21-channel digital EEG recorded with video component, utilizing 10/20 international system with referential and bipolar montages. The patient was mostly drowsy during the study with presence of bilaterally symmetric theta frequency rhythm. Some stage 2 sleep was also seen with presence of vertex waves, and sleep spindles. Brief periods of arousal were associated with normal appearing [id number]-qv-evse amplitude 8-9 hertz alpha activity seen posterior dominant, reactive to eye opening and closing. Some myogenic artifacts were seen during the study. No focal or generalized epileptiform activity was seen. IMPRESSION: This is probably a normal EEG during drowsiness and some stage 2 sleep. Brief period of wakefulness was characterized with normal appearing background pattern. No focal, lateralized, or epileptiform discharges were seen. MMSUSHILA / [facility]: [id number] /
[2022-11-05 05:11] LABS: ALT 48 U/L (4-34); AST 40 U/L (14-36); African American GFR (CKD) 67 (>60 ml/min/1.73 sqM); Albumin 3.5 g/dL (3.5-5.0); Albumin/Globulin Ratio 1.3; Alkaline Phosphatase 47 U/L (38-126); Anion Gap 5 mmol/L; Blood Urea Nitrogen 23 mg/dL (7-17); Calcium 8.9 mg/dL (8.4-10.2); Carbon Dioxide 33 mmol/L (22-30); Chloride 100 mmol/L (98-107); Globulin 2.7 g/dL; Glucose 103 mg/dL (74-99); Non-African American GFR(CKD) 58 (>60 ml/min/1.73 sqM); Potassium 3.8 mmol/L (3.5-5.1); Sodium 138 mmol/L (137-145); Total Bilirubin 0.3 mg/dL (0.2-1.3); Total Protein 6.2 g/dL (6.3-8.2)
[2022-11-05] MEDS: ASPIRIN 81 MG PO SCH (08:57)
[2022-11-05] MEDS: ESCITALOPRAM 10 MG TAB PO SCH (08:57)
[2022-11-05] MEDS: PREGABALIN 100 MG CAP PO SCH ×3 (08:57→19:51)
[2022-11-05] MEDS: PANTOPRAZOLE 40 MG TABLET PO SCH (08:57)
[2022-11-05] MEDS: ENOXAPARIN 40 MG/0.4 ML SYRINGE SQ SCH (08:58)
[2022-11-05] MEDS: LIRAGLUTIDE 0.6 MG/0.1 ML SQ SCH (09:04)
--- NOTE | 2022-11-05 09:42 | P.CNNES ---
History of Present Illness Consult date: 11/04/22 Requesting physician: Mai Payne Reason for Consult: Altered mental status, abnormal brain CT History of Present Illness: Patient is a 62-year-old right-handed female came to the hospital by law enforcement transport today at 9:14 AM for altered mental status. Patient states that this morning she was going to her friend's shop and she was driving in usual state of health. Suddenly she started seeing double, became confused almost like in a dream. She complained of a headache sharp pain involving the left parietal region, and in the left eye. She pulled over to the side of the road and called her daughter. Apparently police came over and thought that she was drunk, did her breath analyzer twice that was negative. Patient states that she remembers talking to the police officers, not looking at them and she kept on closing her eyes. Her head was hurting. The police thought that she was doing drugs, therefore she was handcuffed and brought to the hospital. Patient states that about couple weeks ago she had a similar spell in which she suddenly developed double vision, could not see and became very confused for a few hours. She felt very tired afterwards and just wanted to sleep. After she took some rest, she got up and felt better. She feels that she is in a dream. She has these 2 spells which are very different than her usual migraines as described below. Patient has long-standing history of migraines, that occurs about twice a month. She sometimes sees a flashing light and then she loses inability to talk feels numbness of the nose and mouth region. She gets light and noise sensitivity with nausea vomiting. She goes to her quiet dark room and tries to sleep it off. She has been suffering from migraines since she was in the second grade. Her daughter, grandson and 3 out of 6 siblings also have migraines. Patient states that if she does not sleep well, she gets a headache. Last night she did not sleep well, therefore probably she suffered a migraine. Vital signs on arrival blood pressure 118/84 pulse rate 99 temperature 98.0. Blood test shows normal CBC, PT/PTT, normal electrolytes, BU and 27 creatinine 1.05. AST is 52, ALT 54, troponin negative. Salicylate and Tylenol level negative. CT had revealed 0.5 cm slightly hyperdense area within the medial right basal ganglia. Tiny petechial hemorrhage cannot be excluded. Finding is nonspecific. Additional workup with contrast MRI recommended. I personally review CT head, appears artifactual in nature versus prominent vessel versus calcification. Chest x-ray showed no acute process. Patient does take multiple psychoactive medications including Ambien 10 mg at bedtime, Elavil 50 mg at bedtime, Lexapro 10 mg, Lyrica 200 mg 3 times a day for fibromyalgia, Zanaflex 4 mg at bedtime for restless legs and Bentyl twice a day as needed. Review of Systems Constitutional: Denies chills, Denies fever Eyes: bilateral diplopia (With the episode), denies blurred vision, denies pain Ears: deny: decreased hearing, ear discharge Ears, nose, mouth and throat: Reports headache, Denies sore throat, Denies vertigo Cardiovascular: Denies chest pain, Denies shortness of breath Respiratory: Denies cough, Denies excessive sputum Gastrointestinal: Denies abdominal pain, Denies diarrhea, Denies nausea, Denies vomiting Genitourinary: Denies dysuria, Denies hematuria Musculoskeletal: Denies myalgias, Denies neck pain Integumentary: Denies pruritus, Denies rash Neurological: Reports as per HPI Psychiatric: Denies anxiety, Denies depression Endocrine: Reports fatigue, Denies weight change Past Medical History Past Medical History: Fibromyalgia, GERD/Reflux, Rheumatoid Arthritis (RA) Additional Past Medical History / Comment(s): diverticultis History of Any Multi-Drug Resistant Organisms: C-DIFF Date of last positivie culture/infection: 02/17/2018 MDRO Source:: stool Past Surgical History: Appendectomy, Back Surgery, Cholecystectomy, Hysterectomy Additional Past Surgical History / Comment(s): cataract, bladder sling Past Anesthesia/Blood Transfusion Reactions: No Reported Reaction Past Psychological History: No Psychological Hx Reported Smoking Status: Never smoker Past Alcohol Use History: None Reported Past Drug Use History: None Reported - Past Family History Father Family Medical History: Cancer Additional Family Medical History / Comment(s): colon cancer Brother(s) Family Medical History: Cancer Additional Family Medical History / Comment(s): colon cancer Mother Family Medical History: Cancer Additional Family Medical History / Comment(s): metastatic lung cancer Medications and Allergies Home Medications Medication Instructions Recorded Confirmed Type Famotidine [Pepcid] 20 mg PO BID PRN 02/18/19 11/04/22 History Folic Acid 1 mg PO DAILY 02/18/19 11/04/22 History Pantoprazole Sodium [Protonix] 40 mg PO DAILY 02/18/19 11/04/22 History tiZANidine HCL [Zanaflex] 4 mg PO HS PRN 02/18/19 11/04/22 History Furosemide [Lasix] 20 mg PO DAILY 01/31/21 11/04/22 History Zolpidem Tartrate [Ambien] 10 mg PO HS PRN 01/31/21 11/04/22 History Amitriptyline HCl [Elavil] 50 mg PO HS 11/04/22 11/04/22 History Chlorthalidone 100 mg PO DAILY 11/04/22 11/04/22 History Dicyclomine [Bentyl] 20 mg PO BID PRN 11/04/22 11/04/22 History Escitalopram [Lexapro] 10 mg PO DAILY 11/04/22 11/04/22 History Fenofibrate,Micronized 134 mg PO DAILY 11/04/22 11/04/22 History [Fenofibrate] Liraglutide [Victoza 2-Reese] 1.8 mg SQ DAILY 11/04/22 11/04/22 History Pregabalin [Lyrica] 200 mg PO TID 11/04/22 11/04/22 History Allergies Allergy/AdvReac Type Severity Reaction Status Date / Time banana Allergy Unknown Verified 11/04/22 10:18 coconut Allergy Unknown Verified 11/04/22 10:18 latex Allergy Rash/Hives Verified 11/04/22 10:18 wool Allergy Rash/Hives Verified 11/04/22 10:18 Physical Examination - Vital Signs Vital Signs: Vital Signs Temp Pulse Resp BP Pulse Ox 11/04/22 09:20 98.0 F 99 16 118/84 97 Intake and Output 11/03/22 11/04/22 11/04/22 22:59 06:59 14:59 Other: Weight 59.874 kg Patient is a late middle aged female, very pleasant in no acute distress. Patient is alert awake oriented to time place and person. Patient knows it is October 2022 and that she is in [facility] in [place] and name of the current president. She did require prompts regarding the name of the hospital and the name of the president. Speech and language functions are normal. Patient can name and repeat very well. No aphasia or dysarthria. Attention, concentration and fund of knowledge is adequate. On cranial nerve examination, pupils are equal, round and reacting to light, visual p[place] are full on confrontation, with no neglect on double simultaneous stimulation. Extraocular muscles are intact with no nystagmus. Face is symmetric, tongue protrudes to the midline. Palatal elevation and sensation normal, hearing and shoulder shrug normal, facial sensation normal. On muscle strength testing, there is no pronator drift and the strength is normal in arms and legs distally and proximally, except left ankle dorsiflexion which is 5-related to back issues. Deep tendon reflexes are symmetric 1 at the biceps, 1 brachioradialis, 2 at the knees, 0 ankles and plantars are flat bilaterally. Sensory to touch is equal with no neglect on double simultaneous stimulation. Cerebellar function showed no ataxia for rltqdb-fk-dwxc testing. No dysdiadochokinesia. No ataxia for wwgz-rt-[id number] testing on either side. Tone and bulk of muscles normal. Gait deferred.. On general examination, there is no carotid bruit or murmur, S1-S2 audible. Chest is clear on consultation. Abdomen is soft nontender. No organomegaly, bowel sounds present. Peripheral pulses are present. No edema. Results - Laboratory Findings CBC and BMP: 11/04/22 10:11 11/05/22 04:22 Abnormal Lab Findings: Abnormal Labs 11/04/22 10:11 Carbon Dioxide 33 H BUN 27 H Creatinine 1.05 H AST 52 H ALT 54 H Assessment and Plan Assessment: * Episode of diplopia followed by mental confusion, tiredness, unclear etiology. This is her second spell, the first one occurred 2 weeks ago. Uncertain if atypical migraines, seizures or TIA. * Long-standing history of migraine headaches * Possible abnormal CT head, although my review appears artifactual. Examination does not appear any obvious focality. * Fibromyalgia * Rheumatoid arthritis * Back surgery * Polypharmacy Plan: * Patient to undergo MRI of the brain rule out CVA/bleed * EEG was performed, which was normal during drowsiness, and some stage II sleep. Brief period of wakefulness was characterized with normal appearing background pattern. No focal, lateralized or epileptiform activity was seen. * Carotid Doppler revealed less than 50% stenosis bilateral carotid bifurcations. Antegrade flow in both vertebral arteries. * 2-D echo * Telemetry monitoring * B12. Previous folate was normal. * Start aspirin 81 mg daily * Patient is on multiple psychoactive medications. May have to reduce dose, or discontinue some to prevent side effects. * Patient does have long-standing history of migraines. It is uncertain if these episodes represent atypical migraines. She may be a candidate for newer medications like Aimovig or Emgality. Patient was recommended to follow up with a neurologist. * Neurology will follow. Thank you for the consult. Time with Patient: Greater than 30
[2022-11-05] MEDS ORDERED: NAPROXEN 250 MG TAB PO STA (10:16)
[2022-11-05] MEDS: LORATADINE 10 MG TAB PO SCH (11:22)
[2022-11-05] MEDS: FENOFIBRATE 160 MG TAB PO SCH (11:22)
[2022-11-05] MEDS: SODIUM CHLORIDE 0.9% 1,000 ML IV SCH (11:33)
[2022-11-05 12:02] LABS: Glucose,Whole Blood 97 mg/dL (70-110)
--- NOTE | 2022-11-05 15:51 | P.PN ---
Subjective Progress Note Date: 11/05/22 62-year-old female was brought in by police after patient was found roaming around with altered mental status over the road. They found her to be slurring with laser pupils. Patient did not have any alcohol intoxication. Patient is a able to provide a history but unable to tell me why she is confused patient had similar episode in the past. Patient denied any focal weakness. Urine drug screen is still pending patient on multiple medications that can cause confusion including Zanaflex, Ambien,elavil, Bentyl, Lyrica. Patient denied any UTI symptoms doesn't have any evidence of sepsis at this time. Patient is alert oriented 3 at this time family at the bedside, unable to obtain much of the his tory that any that can explain her altered mental status from either family or the patient. 11/05/2022 Patient evaluated today resting in bed. Awake alert and oriented x 3. Pending MRI if patients surgical back implants are compatible with MRI. Brain CT did reveal 0.5 cm slightly hyperdense area with in the medial right basal ganglia. Tiny petechial hemorrhage cannot be excluded. Patient does report hitting her head 2 weeks ago when she was bending over had hit it in on the counter. Since then she reports 2 migraine episodes mostly in the frontal and behind the eye and also had experienced double vision and amnesia when driving to her store which is what prompted this visit. Patient currently reports headache /10 and is given naprosyn for this. Patient did have her morphine pump refilled on 10/16 accounting for the opiates in the drug toxicology. Review of Systems Constitutional: Denied any fatigue denied any fever. Cardio vascular: denied any chest pain, palpitations Gastrointestinal: denied any nausea, vomiting, diarrhea Pulmonary: Denied any shortness of breath cough Neurologic denied any new focal deficits, reports migraine right frontal/opthalmic. All inpatient medications were reviewed and appropriate changes in these medications as dictated in the interval history and assessment and plan. PHYSICAL EXAMINATION: GENERAL: The patient is alert and oriented x3, not in any acute distress. Well developed, well nourished. HEENT: Pupils are round and equally reacting to light. EOMI. No scleral icterus. No conjunctival pallor. Normocephalic, atraumatic. No pharyngeal erythema. No thyromegaly. CARDIOVASCULAR: S1 and S2 present. No murmurs, rubs, or gallops. PULMONARY: Chest is clear to auscultation, no wheezing or crackles. ABDOMEN: Soft, nontender, nondistended, normoactive bowel sounds. No palpable organomegaly. MUSCULOSKELETAL: No joint swelling or deformity. EXTREMITIES: No cyanosis, clubbing, or pedal edema. NEUROLOGICAL: Gross neurological examination did not reveal any focal deficits. SKIN: No rashes. Assessment and plan -Altered mental status likely toxic encephalopathy from poly pharmacy rule out acute stroke -Mild acute renal failure with elevated BUN/creatinine secondary to chlorthalidone and Lasix for peripheral edema. -Mild transaminitis no further workup is necessary LFTs improving. -Fibromyalgia -Gastroesophageal reflux disease -Rheumatoid arthritis DVT prophylaxis: Lovenox Gi prophylaxis: protonix Full Code Plan Pending MRI. Echocardiogram pending. Neurology following. Possible D/C in the next 24 hours. The impression and plan of care has been dictated by Kayla Keys Nurse Practitioner as directed. Dr. Gabby MD I have performed a history and physical examination and medical decision making of this patient, discussed the same with the dictator, and agree with the dictators assessment and plan as written, documented as a scribe. Based on total visit time, I have performed more than 50% of this visit. Objective - Vital Signs Vital signs: Vital Signs Temp 98.2 F 11/05/22 14:10 Pulse 91 11/05/22 14:10 Resp 18 11/05/22 14:10 BP 142/89 11/05/22 14:10 Pulse Ox 95 11/05/22 14:10 FiO2 Intake & Output 11/04/22 11/05/22 11/05/22 18:59 06:59 18:59 Intake Total 360 Balance 360 Weight 59.874 kg 59.874 kg Intake: Oral 360 Other: # Voids 1 - Labs CBC & Chem 7: 11/04/22 10:11 11/05/22 04:22 Labs: Abnormal Lab Results - Last 24 Hours (Table) 11/05/22 Range/Units 04:22 Carbon Dioxide 33 H (22-30) mmol/L BUN 23 H (7-17) mg/dL Creatinine 1.05 H (0.52-1.04) mg/dL Glucose 103 H (74-99) mg/dL AST 40 H (14-36) U/L ALT 48 H (4-34) U/L Total Protein 6.2 L (6.3-8.2) g/dL Assessment and Plan Time with Patient: Less than 30
[2022-11-05 17:15] LABS: Glucose,Whole Blood 107 mg/dL (70-110)
[2022-11-05 19:33] VITALS: RESP 16
[2022-11-05 20:06] LABS: Glucose,Whole Blood 96 mg/dL (70-110)
[2022-11-05] MEDS: TEMAZEPAM 7.5 MG CAP PO PRN (20:48)
[2022-11-05] MEDS ORDERED: FAMOTIDINE 20 MG TAB PO SCH (21:00)
[2022-11-06 06:02] LABS: ALT 50 U/L (4-34); AST 33 U/L (14-36); African American GFR (CKD) 74 (>60 ml/min/1.73 sqM); Albumin 3.3 g/dL (3.5-5.0); Albumin/Globulin Ratio 1.3; Alkaline Phosphatase 45 U/L (38-126); Anion Gap 4 mmol/L; Blood Urea Nitrogen 21 mg/dL (7-17); Calcium 8.7 mg/dL (8.4-10.2); Carbon Dioxide 34 mmol/L (22-30); Chloride 101 mmol/L (98-107); Globulin 2.5 g/dL; Glucose 104 mg/dL (74-99); Non-African American GFR(CKD) 65 (>60 ml/min/1.73 sqM); Potassium 3.6 mmol/L (3.5-5.1); Sodium 139 mmol/L (137-145); Total Bilirubin 0.2 mg/dL (0.2-1.3); Total Protein 5.8 g/dL (6.3-8.2)
[2022-11-06] MEDS: PANTOPRAZOLE 40 MG TABLET PO SCH (06:05)
[2022-11-06] MEDS: SODIUM CHLORIDE 0.9% 1,000 ML IV SCH (06:06)
[2022-11-06 06:13] LABS: Glucose,Whole Blood 116 mg/dL (70-110)
--- NOTE | 2022-11-06 07:03 | CA ---
Transthoracic Echo Report Name: Darlin Shirley Age: 62 Gender: F : 1960 Exam Date: 11/05/2022 13:39 Exam Location: [facility] Ht (in): 63 Wt (lb): 132 Ordering Physician: Vivek Dumont MD Attending/Referring Phys: Acid Dumper Aracelis Turpin [facility] Procedure CPT: Indications: ?TIA Cardiac Hx: Technical Quality: Fair Contrast 1: Total Dose (mL): Contrast 2: Total Dose (mL): MEASUREMENTS (Male / Female) Normal Values 2D ECHO LV Diastolic Diameter PLAX 4.5 cm 4.2 - 5.9 / 3.9 - 5.3 cm LV Systolic Diameter PLAX 2.8 cm IVS Diastolic Thickness 1.0 cm 0.6 - 1.0 / 0.6 - 0.9 cm LVPW Diastolic Thickness 1.0 cm 0.6 - 1.0 / 0.6 - 0.9 cm LV Relative Wall Thickness 0.4 RV Internal Dim ED PLAX 3.0 cm M-MODE Aortic Root Diameter MM 2.6 cm LA Systolic Diameter MM 3.6 cm LA Ao Ratio MM 1.4 AV Cusp Separation MM 1.8 cm DOPPLER AV Peak Velocity 127.2 cm/s AV Peak Gradient 6.5 mmHg AV Mean Velocity 85.3 cm/s AV Mean Gradient 3.2 mmHg AV Velocity Time Integral 23.0 cm LVOT Peak Velocity 89.5 cm/s LVOT Peak Gradient 3.2 mmHg LVOT Velocity Time Integral 14.5 cm Mitral E Point Velocity 72.7 cm/s Mitral A Point Velocity 69.3 cm/s Mitral E to A Ratio 1.0 MV Deceleration Time 201.5 ms LV E' Lateral Velocity 7.9 cm/s Mitral E to LV E' Lateral Ratio 9.2 LV E' Septal Velocity 7.4 cm/s Mitral E to LV E' Septal Ratio 9.9 Right Atrial Pressure 8.0 mmHg FINDINGS Left Ventricle Left ventricular ejection fraction is estimated at 55 to 60% . Normal left ventricular systolic function with no obvious regional wall motion abnormalities.left ventricular cavity size normal. Right Ventricle Normal right ventricular size and function. Right Atrium Normal right atrial size. Left Atrium Normal left atrial size. Mitral Valve Structurally normal mitral valve. Mild mitral regurgitation. Aortic Valve Trileaflet aortic valve. No aortic valve stenosis or regurgitation. Tricuspid Valve Structurally normal tricuspid valve. Trace tricuspid regurgitation. Pulmonic Valve Structurally normal pulmonic valve. No pulmonic regurgitation. Pericardium No pericardial effusion.echo free space anterior to the right ventricle likely represents a fat pad. Aorta Aortic root and proximal ascending aorta not well visualized. CONCLUSIONS 1. Normal left ventricle size and systolic function 2. Mild mitral regurgitation with trace tricuspid regurgitation Previewed by: Dr. Verito Cedeno MD (Electronically Signed) Final Date: 06 November 2022 07:03
[2022-11-06] MEDS: PREGABALIN 100 MG CAP PO SCH ×2 (08:41→15:49)
[2022-11-06] MEDS: LIRAGLUTIDE 0.6 MG/0.1 ML SQ SCH (08:41)
[2022-11-06] MEDS: ESCITALOPRAM 10 MG TAB PO SCH (08:41)
[2022-11-06] MEDS: LORATADINE 10 MG TAB PO SCH (08:41)
[2022-11-06] MEDS: ENOXAPARIN 40 MG/0.4 ML SYRINGE SQ SCH (08:41)
[2022-11-06] MEDS: FENOFIBRATE 160 MG TAB PO SCH (08:41)
--- NOTE | 2022-11-06 08:57 | P.PN ---
Subjective Progress Note Date: 11/05/22 Patient was seen for a follow-up. Patient is laying comfortably in the bed. Patient's was also present today. Objective - Vital Signs Vital signs: Vital Signs Temp 98.1 F 11/05/22 08:28 Pulse 81 11/05/22 08:28 Resp 17 11/05/22 08:28 BP 116/77 11/05/22 08:28 Pulse Ox 98 11/05/22 08:28 FiO2 Intake & Output 11/04/22 11/05/22 11/05/22 18:59 06:59 18:59 Intake Total 180 Balance 180 Weight 59.874 kg 59.874 kg Intake: Oral 180 Other: # Voids 1 - Exam Examination is nonfocal. - Labs CBC & Chem 7: 11/04/22 10:11 11/06/22 05:22 Labs: Abnormal Lab Results - Last 24 Hours (Table) 11/04/22 11/04/22 11/05/22 Range/Units 10:11 10:11 04:22 Carbon Dioxide 33 H (22-30) mmol/L BUN 23 H (7-17) mg/dL Creatinine 1.05 H (0.52-1.04) mg/dL Glucose 103 H (74-99) mg/dL AST 40 H (14-36) U/L ALT 48 H (4-34) U/L Total Protein 6.2 L (6.3-8.2) g/dL Ur Leukocyte Esterase Moderate H (Negative) Urine WBC 11 H (0-5) /hpf Urine Opiates Screen Detected H (NotDetected) U Tricyclic Antidepress Detected H (NotDetected) Assessment and Plan Assessment: * Episode of diplopia followed by mental confusion, tiredness, unclear etiology. This is her second spell, the first one occurred 2 weeks ago. Uncertain if atypical migraines, seizures or TIA. * Long-standing history of migraine headaches * Possible abnormal CT head, rule out small ICP. On my review appears artifactual. Examination does not appear to have any obvious focality. * Vitamin B12 deficiency * Fibromyalgia * Rheumatoid arthritis * Back surgery * Polypharmacy Plan: * Await MRI of the brain rule out CVA/bleed * EEG was performed, which was normal during drowsiness, and some stage II sleep. Brief period of wakefulness was characterized with normal appearing background pattern. No focal, lateralized or epileptiform activity was seen. * Carotid Doppler revealed less than 50% stenosis bilateral carotid bifurcations. Antegrade flow in both vertebral arteries. * 2-D echo * Telemetry monitoring * B12 188. Start B12 replacement. Patient is also on folate 1 mg daily. * Hold aspirin for now until MRI rules out bleed. * Patient is on multiple psychoactive medications. May have to reduce dose, or discontinue some to prevent side effects. * Patient does have long-standing history of migraines. It is uncertain if these episodes represent atypical migraines. She may be a candidate for newer medications like Aimovig or Emgality. Patient was recommended to follow up with a neurologist.
[2022-11-06] MEDS ORDERED: FOLIC ACID 1 MG TAB PO SCH (09:00)
[2022-11-06] MEDS ORDERED: CYANOCOBALAMIN 1,000 MCG/ML 1 ML VIAL IM ONE (10:00)
[2022-11-06 12:00] LABS: Glucose,Whole Blood 101 mg/dL (70-110)
--- NOTE | 2022-11-06 14:41 | MR ---
EXAMINATION TYPE: MR brain wo/w con DATE OF EXAM: 11/06/2022 COMPARISON: CT 11/04/2022 HISTORY: Abnormal brain CT, AMS. CONTRAST: Performed utilizing 10 mL intravenous Gadavist gadolinium contrast. TECHNIQUE: Multiplanar, multiecho imaging on a 3.0 Yanira magnet is performed through the brain. Stud y is performed within 24 hours of arrival to the hospital. The craniovertebral junction is normal. The pituitary is normal. Diffusion-weighted imaging is performed. No abnormal hyperintensity is present to suggest an acute i ntracranial infarct or acute ischemic change. Attention is paid to the region of the right basal ganglion with correlation with the previous abnorm al CT exam. Corresponding abnormality on MRI is not identified. No suspicious change to suggest hemor rhage or vascular malformation is identified. There is a punctate subependymal T2 hyperintensity adjacent to the anterior portion left lateral vent ricle. 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 Ventricles and sulci are appropriate for the patient age. Mucosal thickening is present within the right maxillary sinus. Air-fluid level is present. Correlate for right maxillary sinusitis. No suspicious enhancement. IMPRESSIONS: 1. No specific abnormality to correlate with the CT finding. 2. 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 3. Clinical correlation recommended for acute maxillary sinusitis.
[2022-11-06 14:43] VITALS: BP 125/73; PULSE 90; TEMP 97.8
[2022-11-06 17:11] LABS: Glucose,Whole Blood 86 mg/dL (70-110)
[2022-11-06] MEDS ORDERED: FAMOTIDINE 20 MG TAB PO SCH (21:00)
[2022-11-07] MEDS ORDERED: ASPIRIN 81 MG PO SCH (09:00)
--- NOTE | 2022-11-07 15:47 | P.DS ---
Providers Date of admission: 11/04/22 11:37 Attending physician: Jose A Pierre Consults: 11/04/22 11:19 Consult Physician Urgent Consulting Provider: Vivek Dumont Consult Reason/Comments: AMS, abnormal brain CT Do you want consulting provider notified?: Already Contacted Primary care physician: Physician Nonstaff Hospital Course: Final Diagnosis -Altered mental status likely toxic encephalopathy from poly pharmacy, acute stroke ruled out -History of migraines and possible complex migraine attributing to the altered mental status -Mild acute renal failure with elevated BUN/creatinine secondary to chlorthalidone and Lasix for peripheral edema. -Mild transaminitis no further workup is necessary LFTs improving. -Vitamin B12 deficiency -Chronic right sided maxillary sinusitis -Fibromyalgia -Gastroesophageal reflux disease -Rheumatoid arthritis Full Code Discharge Disposition Patient is stable for discharge has been cleared by neurology services. Patient will complete a course of augmentin for the sinusitis found on MRI imaging. Can continue on claritin daily. Follow up with Dr. Garcia if symptoms are not improving. Follow up with neurology on discharge for further evaluation of migraine. Recommend follow up brain MRI in 1 year for evaluation of cyst. Recommend to follow up with your PCP on discharge 1 to 2 days. Recommend to repeat labs in 2 to 3 days. Patient to continue with B12 injections weekly for one month and follow up B12 level outpatient. Hospital Course This is a 62-year-old female was brought in by police after patient was found roaming around with altered mental status over the road. They found her to be slurring with laser pupils. Patient did not have any alcohol intoxication. Patient is a able to provide a history but unable to tell me why she is confused patient had similar episode in the past. Patient denied any focal weakness. Urine drug toxicology showing TCAs and opiates. Patient on multiple medications that can cause confusion including Zanaflex, Ambien,elavil, Bentyl, Lyrica. Patient did have her morphine pump refilled on 10/16 accounting for the opiates in the drug toxicology. Patient denied any UTI symptoms doesn't have any evid ence of sepsis at this time. Patient is alert oriented 3 at this time family at the bedside. Does have history of chronic migraines and chronic sinus issues. Brain CT did reveal 0.5 cm slightly hyperdense area with in the medial right basal ganglia. Tiny petechial hemorrhage cannot be excluded. Patient does report hitting her head 2 weeks ago when she was bending over had hit it in on the counter. Since then she reports 2 migraine episodes mostly in the frontal and behind the eye and also had experienced double vision and amnesia when driving to her store which is what prompted this visit. Due to brain CT findings neurology was consulted for further evaluation and patient underwent full stroke work up. Echocardiogram shows normal LV size and systolic function, mild MR with trace TR. EEG was normal during drowsiness and some stage 2 sleep, brief period of wakefullness was characterized with normal appearing background pattern. No focal, lateralized or epileptiform discharges were seen. Carotid doppler shows less than 50% stenosis of the bilateral carotid bifurcations. Patient had follow up MRI showing no specific abnormality to correlate for CT finding. Clinical correlation recommended for acute maxillary sinusitis. Neurology ruled out stroke or brain hemorrhage, recommending follow up with neurology on discharge for evaluation of possible complex migraines. Patient will be given short course of oral augmentin for the sinusitis recommending to continue on antihistamine daily. Vitamin B12 found to be 188 and patient recommending for B12 injection weekly for one month. LFTs are improving. Patient is now alert x 3, denying shortness of breath denying chest pain. ambulating without difficulty and no focal weakness. Lungs are clear, S1 S2 auscultated and abdomen is soft and nontender. Cleared for discharge with the above mentioned recommendations. Please see medication reconciliation for a list of current medications. Thank you for allowing us to participate in the care of this patient. The impression and plan of care has been dictated by Kayla Keys, Nurse Practitioner as directed. Dr. Gabby MD I have performed a history and physical examination and medical decision making of this patient, discussed the same with the dictator, and agree with the dictators assessment and plan as written, documented as a scribe. Based on total visit time, I have performed more than 50% of this visit. Patient Condition at Discharge: Stable Plan - Discharge Summary Discharge Rx Participant: Yes New Discharge Prescriptions: New Amoxic-Pot Clav 875-125Mg [Augmentin 875-125] 1 tab PO BID 5 Days #10 tab Aspirin EC [Ecotrin Low Dose] 81 mg PO DAILY #30 tab Loratadine [Claritin] 5 mg PO DAILY tab Cyanocobalamin [Vitamin B-12 Injection] 1,000 mcg SQ WEEKLY #1 ml Continue tiZANidine HCL [Zanaflex] 4 mg PO HS PRN PRN Reason: Muscle Spasm Folic Acid 1 mg PO DAILY Famotidine [Pepcid] 20 mg PO BID PRN PRN Reason: Heartburn Amitriptyline HCl [Elavil] 50 mg PO HS Escitalopram [Lexapro] 10 mg PO DAILY Fenofibrate,Micronized [Fenofibrate] 134 mg PO DAILY Furosemide [Lasix] 20 mg PO DAILY Pregabalin [Lyrica] 200 mg PO TID Liraglutide [Victoza 2-Reese] 1.8 mg SQ DAILY Dicyclomine [Bentyl] 20 mg PO BID PRN PRN Reason: Diarrhea Discontinued Pantoprazole Sodium [Protonix] 40 mg PO DAILY Zolpidem Tartrate [Ambien] 10 mg PO HS PRN PRN Reason: Insomnia Chlorthalidone 100 mg PO DAILY Discharge Medication List Famotidine [Pepcid] 20 mg PO BID PRN 02/18/19 [History] Folic Acid 1 mg PO DAILY 02/18/19 [History] tiZANidine HCL [Zanaflex] 4 mg PO HS PRN 02/18/19 [History] Furosemide [Lasix] 20 mg PO DAILY 01/31/21 [History] Amitriptyline HCl [Elavil] 50 mg PO HS 11/04/22 [History] Dicyclomine [Bentyl] 20 mg PO BID PRN 11/04/22 [History] Escitalopram [Lexapro] 10 mg PO DAILY 11/04/22 [History] Fenofibrate,Micronized [Fenofibrate] 134 mg PO DAILY 11/04/22 [History] Liraglutide [Victoza 2-Reese] 1.8 mg SQ DAILY 11/04/22 [History] Pregabalin [Lyrica] 200 mg PO TID 11/04/22 [History] Amoxic-Pot Clav 875-125Mg [Augmentin 875-125] 1 tab PO BID 5 Days #10 tab 11/06/22 [Rx] Aspirin EC [Ecotrin Low Dose] 81 mg PO DAILY #30 tab 11/06/22 [Rx] Cyanocobalamin [Vitamin B-12 Injection] 1,000 mcg SQ WEEKLY #1 ml 11/06/22 [Rx] Loratadine [Claritin] 5 mg PO DAILY tab 11/06/22 [Rx] Follow up Appointment(s)/Referral(s): Nonstaff,Physician [Primary Care Provider] - 1-2 days Kimberly Harry MD [REFERRING] - 1-2 Days Verito Coto MD [REFERRING] - 1-2 Days Woo Serrano MD [Medical Doctor] - 1 Week Ambulatory/Diagnostic Orders: ALT [LAB.AMB] Time Frame: 3 Days, Location: None Selected AST [LAB.AMB] Time Frame: 3 Days, Location: None Selected Basic Metabolic Panel [LAB.AMB] Time Frame: 3 Days, Location: None Selected Activity/Diet/Wound Care/Special Instructions: Recommend to follow up with your PCP on discharge 1 to 2 days Follow up with neurology on discharge for further evaluation of migraine Recommend follow up brain MRI in 1 year for evaluation of cyst Complete augmentin for the sinusitis found on MRI imaging Can continue on claritin daily Follow up with Dr. Garcia if symptoms are not improving Recommend to repeat labs in 2 to 3 days Discharge Disposition: HOME SELF-CARE
== END 2022-11-06 18:30 | disposition home or self-care (01) ==
LOC: EC 09:14 → 6NMEDSUR 11:37
PROVIDERS: ADMIT Internal Medicine; ATTEND Internal Medicine
DX: R41.82 Altered mental status, unspecified (principal); R90.89 Other abnormal findings on diagnostic imaging of central nervous system; N17.9 Acute kidney failure, unspecified; R74.01 Elevation of levels of liver transaminase levels; R60.0 Localized edema; G43.909 Migraine, unspecified, not intractable, without status migrainosus; K21.9 Gastro-esophageal reflux disease without esophagitis; M79.7 Fibromyalgia; M06.9 Rheumatoid arthritis, unspecified; J32.0 Chronic maxillary sinusitis; E53.8 Deficiency of other specified B group vitamins; Z79.899 Other long term (current) drug therapy; Z91.040 Latex allergy status
CPT/HCPCS: 96372 ×2; 99285; 36415; 95816; 93005; 93306; 80053 ×3; 82607; 84484; 85025; 85610; 85730; 81001; 80306; 80143; 80179; 71046; 93880; 70450; 70553; G0378 ×3; J3420; J1650 ×2; A9585

== ENCOUNTER 2024-06-03 02:17 | Emergency (ER) | payer BC, MEDICARE ==
[2024-06-03] MEDS: LORazepam 2 MG/ML INJ IV STA (02:46)
[2024-06-03] MEDS: SODIUM CHLORIDE 0.9% 1,000 ML IV STA (02:48)
[2024-06-03 03:08] LABS: Basophils % (A) 0 %; Eosinophils # (A) 0.2 k/uL (0-0.7); Eosinophils % (A) 4 %; HGB 14.3 gm/dL (11.4-16.0); Lymphocytes # (A) 1.4 k/uL (1.0-4.8); Lymphocytes % (A) 28 %; MCH 28.9 pg (25.0-35.0); MCHC 31.8 g/dL (31.0-37.0); Mean Platelet Volume 8.1; Monocytes # (A) 0.4 k/uL (0-1.0); Monocytes % (A) 9 %; Neutrophils # (A) 2.9 k/uL (1.3-7.7); Neutrophils % (A) 57 %; Platelet Count 213 k/uL (150-450); RBC 4.95 m/uL (3.80-5.40); RDW 13.2 % (11.5-15.5); WBC 5.1 k/uL (3.8-10.6)
--- NOTE | 2024-06-03 03:19 | ED ---
General Adult HPI - General Chief complaint: Fall Stated complaint: Back pain Time Seen by Provider: 06/03/24 02:30 Source: patient, RN notes reviewed, old records reviewed Mode of arrival: EMS Limitations: no limitations - History of Present Illness Initial comments: Patient is a 64-year-old female who presents emergency department with multiple complaints. Patient had a fall at home. Is not on thinners. Did not hit her head or lose consciousness. Is complaining of chronic low back pain. Is on a chronic morphine pain pump. Patient does appear extremely anxious at this time as well. She is stuttering, and is shaking all over. Denies any other symptoms at this time. Is able to move all 4 extremities without issue. States she has been having chronic sinus issues for months. Thinks she may be dehydrated. States she felt weak at home which caused her to fall. Has no other acute complaints. Presents for further evaluation at this time. - Related Data Home Medications Medication Instructions Recorded Confirmed Famotidine [Pepcid] 20 mg PO BID PRN 02/18/19 11/04/22 Folic Acid 1 mg PO DAILY 02/18/19 11/04/22 tiZANidine HCL [Zanaflex] 4 mg PO HS PRN 02/18/19 11/04/22 Furosemide [Lasix] 20 mg PO DAILY 01/31/21 11/04/22 Amitriptyline HCl [Elavil] 50 mg PO HS 11/04/22 11/04/22 Dicyclomine [Bentyl] 20 mg PO BID PRN 11/04/22 11/04/22 Escitalopram [Lexapro] 10 mg PO DAILY 11/04/22 11/04/22 Fenofibrate,Micronized 134 mg PO DAILY 11/04/22 11/04/22 [Fenofibrate] Liraglutide [Victoza 2-Reese] 1.8 mg SQ DAILY 11/04/22 11/04/22 Pregabalin [Lyrica] 200 mg PO TID 11/04/22 11/04/22 Previous Rx's Medication Instructions Recorded Amoxic-Pot Clav 875-125Mg 1 tab PO BID 5 Days #10 tab 11/06/22 [Augmentin 875-125] Aspirin EC [Ecotrin Low Dose] 81 mg PO DAILY #30 tab 11/06/22 Cyanocobalamin [Vitamin B-12 1,000 mcg SQ WEEKLY #1 ml 11/06/22 Injection] Loratadine [Claritin] 5 mg PO DAILY tab 11/06/22 Cyclobenzaprine [Flexeril] 5 mg PO BID PRN 5 Days #10 tablet 06/03/24 Lidocaine 5% Patch [Lidoderm 5% 1 patch TOPICAL DAILY PRN 14 Days 06/03/24 Patch] #14 patch Allergies Allergy/AdvReac Type Severity Reaction Status Date / Time banana Allergy Unknown Verified 06/03/24 02:32 coconut Allergy Unknown Verified 06/03/24 02:32 latex Allergy Rash/Hives Verified 06/03/24 02:32 wool Allergy Rash/Hives Verified 06/03/24 02:32 Review of Systems ROS Statement: Those systems with pertinent positive or pertinent negative responses have been documented in the HPI. Review of Systems: CONST: Denies fever EYES: Denies blurry vision ENT: Denies nasal congestion C/V: Denies Chest pain RESP: Denies shortness of breath GI: Denies abdominal pain : Denies dysuria SKIN: Denies rash. MSK: Endorses chronic lower back pain. NEURO: Denies headache ROS Other: All systems not noted in ROS Statement are negative. Past Medical History Past Medical History: Fibromyalgia, GERD/Reflux, Rheumatoid Arthritis (RA) Additional Past Medical History / Comment(s): diverticultis History of Any Multi-Drug Resistant Organisms: C-DIFF Date of last positivie culture/infection: 02/17/2018 MDRO Source:: stool Past Surgical History: Appendectomy, Back Surgery, Cholecystectomy, Hysterectomy Additional Past Surgical History / Comment(s): cataract, bladder sling Past Anesthesia/Blood Transfusion Reactions: No Reported Reaction Past Psychological History: No Psychological Hx Reported Smoking Status: Never smoker Past Alcohol Use History: None Reported Past Drug Use History: None Reported - Past Family History Father Family Medical History: Cancer Additional Family Medical History / Comment(s): colon cancer Brother(s) Family Medical History: Cancer Additional Family Medical History / Comment(s): colon cancer Mother Family Medical History: Cancer Additional Family Medical History / Comment(s): metastatic lung cancer General Exam - General Exam Comments Initial Comments: General: Appears anxious. Is tremulous but this is extinguishable. HEAD: Normal with no signs of head trauma. EYES: PERRLA, EOMI, conjunctiva normal, no discharge. Pupils are 3 mm and equal bilaterally. ENT: Hearing grossly intact, normal oropharynx. RESPIRATORY: Clear breath sounds bilaterally. No wheezes, rales, or rhonchi. C/V: Regular rate and rhythm. S1 and S2 auscultated, no edema, peripheral pulses 2+ and intact throughout ABD: Abd is soft, nontender, nondistended EXT: Normal range of motion, no obvious deformity. Chronic tenderness to palpation of the lower lumbar spine. Pelvis is stable. SKIN: No rashes or lesions observed on exposed skin. NEURO: Alert and oriented x 4. Cranial nerves II-XII intact. No focal sensory or strength deficits. GCS of 15. NIH is 0. Patient appears anxious with tremors. Limitations: no limitations Course Vital Signs 06/03/24 02:18 Pulse Rate 117 H Respiratory 20 Rate Blood Pressure 111/48 O2 Sat by Pulse 95 Oximetry Medical Decision Making - Medical Decision Making Was pt. sent in by a medical professional or institution (, PA, [employer], urgent care, hospital, or fdc...) When possible be specific @ -No Did you speak to anyone other than the patient for history (EMS, parent, family, police, friend...)? What history was obtained from this source @ -No Did you review nursing and triage notes (agree or disagree)? Why? @ -I reviewed and agree with nursing and triage notes Were old charts reviewed (outside hosp., previous admission, EMS record, old EKG, old radiological studies, urgent care reports/EKG's, fdc records)? Report findings @ -No old charts were reviewed Differential Diagnosis (chest pain, altered mental status, abdominal pain women, abdominal pain men, vaginal bleeding, weakness, fever, dyspnea, syncope, headache, dizziness, GI bleed, back pain, seizure, CVA, palpatations, mental health, musculoskeletal)? @ -Differential Weakness: Hypoglycemia, shock, sepsis, hyponatremia, anemia, infection, HI, ETOH, adverse medicine reaction, overdose, stroke, this is not meant to be an all-inclusive list. EKG interpreted by me (3pts min.). @ -As above X-rays interpreted by me (1pt min.). @ -Chest and pelvis x-rays negative for any obvious acute traumatic injury. CT interpreted by me (1pt min.). @ -CT brain, lumbar spine negative for any obvious acute traumatic injury or process. Chronic sinus inflammation present in the right maxillary sinus. Patient also has the chronic postsurgical changes to the lumbar spine which appear to be intact and in place. U/S interpreted by me (1pt. min.). @ -None done What testing was considered but not performed or refused? (CT, X-rays, U/S, labs)? Why? @ -None What meds were considered but not given or refused? Why? @ -None Did you discuss the management of the patient with other professionals (professionals i.e. , PA, [employer] HELPER, lab, RT, psych nurse, manager social work, court recording monitor, teacher, fire control officer, case assistant)? Give summary @ -No Was smoking cessation discussed for >3mins.? @ -No Was critical care preformed (if so, how long)? @ -No Were there social determinants of health that impacted care today? How? (Homeles sness, low income, unemployed, alcoholism, drug addiction, transportation, low edu. Level, literacy, decrease access to med. care, senior living, rehab)? @ -No Was there de-escalation of care discussed even if they declined (Discuss DNR or withdrawal of care, Hospice)? DNR status @ -No What co-morbidities impacted this encounter? (DM, HTN, Smoking, COPD, CAD, Cancer, CVA, ARF, Chemo, Hep., AIDS, mental health diagnosis, sleep apnea, morbid obesity)? @ -None Was patient admitted / discharged? Hospital course, mention meds given and route, prescriptions, significant lab abnormalities, going to OR and other pertinent info. @ -Based on patient's presentation and physical exam, she does appear anxious. Possibly dehydrated as well. She did suffer a fall. Due to her tremors as well as her lower lumbar spine pain we will obtain CT imaging the brain and lumbar spine as well as chest and pelvis x-rays. We will obtain generalized workup. She began experiencing chest pain that is since resolved on the way to the ER. Cardiac workup will be obtained due to the atypical presentation with the fletcher rs. She was in agreement this plan. Vitals remarkable for mild tachycardia. Suspect anxiety is playing a role and she was given 1 mg of IV Ativan as well as IV fluids.There is no focal neurological deficits. She has generalized tremors as well as stuttering. EKG shows no signs of acute ischemia. Patient's imaging returned unremarkable. On reevaluation, patient is resting comfortably at this time. Still having some mild pain in her lower spine which is why she was administered additional analgesia medications. Her tremors as well as stuttering have stopped and states the Ativan seems to have helped. Patient will be given IV Toradol, lidocaine patch, as well as Flexeril. Laboratory studies remarkable for hypomagnesemia. I updated the patient on results. Patient is feeling improved at this time. She will be given a dose of IV steroids, as well as magnesium and then discharged home with instructions follow-up with PCP in the next 1 to 3 days. She was in agreement this plan. She is already on morphine pain pump for home I will provide her with a short- term prescription for Flexeril as well as lidocaine patches. She was in agreement this plan. I will provide the patient with a prescription for Flexeril, lidocaine patches. I instructed the patient to follow up with their PCP in the next 1-3 days.. I explained that the patient should return to the emergency department if they experience any worsening symptoms. Strict return precautions were discussed with the patient. The patient expressed understanding of these instructions. I answered all questions that the patient had. The patient was discharged home in good condition with their prescriptions and follow up information. Undiagnosed new problem with uncertain prognosis? @ -No Drug Therapy requiring intensive monitoring for toxicity (Heparin, Nitro, Insulin, Cardizem)? @ -No Were any procedures done? @ -No Diagnosis/symptom? @ -Fall, back pain, hypomagnesemia Acute, or Chronic, or Acute on Chronic? @ -Acute Uncomplicated (without systemic symptoms) or Complicated (systemic symptoms)? @ -Uncomplicated Side effects of treatment? @ -None Exacerbation, Progression, or Severe Exacerbation] @ -No Poses a threat to life or bodily function? @ -Unlikely at this time - Lab Data Result diagrams: 06/03/24 02:54 06/03/24 02:54 Lab Results 06/03/24 06/03/24 06/03/24 Range/Units 02:54 02:54 02:54 WBC 5.1 (3.8-10.6) k/uL RBC 4.95 (3.80-5.40) m/uL Hgb 14.3 (11.4-16.0) gm/dL Hct 45.0 (34.0-46.0) % MCV 91.0 (80.0-100.0) fL MCH 28.9 (25.0-35.0) pg MCHC 31.8 (31.0-37.0) g/dL RDW 13.2 (11.5-15.5) % Plt Count 213 (150-450) k/uL MPV 8.1 Neutrophils % 57 % Lymphocytes % 28 % Monocytes % 9 % Eosinophils % 4 % Basophils % 0 % Neutrophils # 2.9 (1.3-7.7) k/uL Lymphocytes # 1.4 (1.0-4.8) k/uL Monocytes # 0.4 (0-1.0) k/uL Eosinophils # 0.2 (0-0.7) k/uL Basophils # 0.0 (0-0.2) k/uL Sodium 141 (137-145) mmol/L Potassium 4.0 (3.5-5.1) mmol/L Chloride 108 H (98-107) mmol/L Carbon Dioxide 24 (22-30) mmol/L Anion Gap 9 mmol/L BUN 15 (7-17) mg/dL Creatinine 0.83 (0.52-1.04) mg/dL Est GFR (CKD-EPI)AfAm 88 (>60 ml/min/1.73 sqM) Est GFR (CKD-EPI)NonAf 76 (>60 ml/min/1.73 sqM) Glucose 111 H (74-99) mg/dL Plasma Lactic Acid Jagdish 1.2 (0.7-2.0) mmol/L Calcium 9.2 (8.4-10.2) mg/dL Magnesium 1.2 L (1.6-2.3) mg/dL Total Bilirubin 0.3 (0.2-1.3) mg/dL AST 31 (14-36) U/L ALT 21 (4-34) U/L Alkaline Phosphatase 46 (38-126) U/L Troponin I (0.000-0.034) ng/mL Total Protein 6.4 (6.3-8.2) g/dL Albumin 4.0 (3.5-5.0) g/dL 06/03/24 Range/Units 02:54 WBC (3.8-10.6) k/uL RBC (3.80-5.40) m/uL Hgb (11.4-16.0) gm/dL Hct (34.0-46.0) % MCV (80.0-100.0) fL MCH (25.0-35.0) pg MCHC (31.0-37.0) g/dL RDW (11.5-15.5) % Plt Count (150-450) k/uL MPV Neutrophils % % Lymphocytes % % Monocytes % % Eosinophils % % Basophils % % Neutrophils # (1.3-7.7) k/uL Lymphocytes # (1.0-4.8) k/uL Monocytes # (0-1.0) k/uL Eosinophils # (0-0.7) k/uL Basophils # (0-0.2) k/uL Sodium (137-145) mmol/L Potassium (3.5-5.1) mmol/L Chloride (98-107) mmol/L Carbon Dioxide (22-30) mmol/L Anion Gap mmol/L BUN (7-17) mg/dL Creatinine (0.52-1.04) mg/dL Est GFR (CKD-EPI)AfAm (>60 ml/min/1.73 sqM) Est GFR (CKD-EPI)NonAf (>60 ml/min/1.73 sqM) Glucose (74-99) mg/dL Plasma Lactic Acid Jagdish (0.7-2.0) mmol/L Calcium (8.4-10.2) mg/dL Magnesium (1.6-2.3) mg/dL Total Bilirubin (0.2-1.3) mg/dL AST (14-36) U/L ALT (4-34) U/L Alkaline Phosphatase (38-126) U/L Troponin I <0.012 (0.000-0.034) ng/mL Total Protein (6.3-8.2) g/dL Albumin (3.5-5.0) g/dL - EKG Data -: EKG Interpreted by Me EKG Comments: 12-lead Electrocardiogram Interpretation Note EKG was reviewed and interpreted by myself. 12-lead ECG performed at 0235 is interpreted by me as revealing sinus tachycardia at a rate of 112 beats per minute. [place] is normal. NM interval is 155 ms, QRS duration is 106 ms, QTc is 364 ms.. There were no ST or T wave abnormalities to suggest myocardial ischemia or injury. R wave progression across the precordium was satisfactory. By my interpretation this EKG is non-diagnostic for acute ischemia. Disposition Clinical Impression: Fall, Back pain, Anxiety, Hypomagnesemia Disposition: HOME SELF-CARE Condition: Good Instructions (If sedation given, give patient instructions): Back Pain (ED), Fall Prevention (ED) Additional Instructions: Follow-up with your PCP in the next 1 to 3 days.. Return to the emergency department if you have any worsening symptoms. Workup today unremarkable except for low magnesium. Obtain repeat lab draw within the next few weeks to monitor levels. Prescriptions: Cyclobenzaprine [Flexeril] 5 mg PO BID PRN 5 Days #10 tablet PRN Reason: Pain Lidocaine 5% Patch [Lidoderm 5% Patch] 1 patch TOPICAL DAILY PRN 14 Days #14 patch PRN Reason: Pain Is patient prescribed a controlled substance at d/c from ED?: No Referrals: Reji Garcia MD [Primary Care Provider] - 1-2 days Time of Disposition: 05:00
--- NOTE | 2024-06-03 03:35 | CT ---
EXAM: CT Head Without Intravenous Contrast CLINICAL HISTORY: ITS.REASON CT Reason: weakness TECHNIQUE: Axial computed tomography images of the head/brain without intravenous contrast. CTDI is 49.2 mGy and DLP is 1154.4 mGy-cm. This CT exam was performed using one or more of the following dose reduction techniques: automated exposure control, adjustment of the mA and/or kV according to patient size, and/or use of iterative reconstruction technique. COMPARISON: No relevant prior studies available. FINDINGS: Brain: No hemorrhage or mass effect. Ventricles: No hydrocephalus. Bones/joints: Unremarkable. Soft tissues: Unremarkable. Sinuses: Right maxillary sinus air-fluid level with moderate muscle thickening. Mastoid air cells: Clear. IMPRESSION: No acute hemorrhage, hydrocephalus, or mass effect.
[2024-06-03 03:58] LABS: ALT 21 U/L (4-34); AST 31 U/L (14-36); African American GFR (CKD) 88 (>60 ml/min/1.73 sqM); Alkaline Phosphatase 46 U/L (38-126); Anion Gap 9 mmol/L; Blood Urea Nitrogen 15 mg/dL (7-17); Calcium 9.2 mg/dL (8.4-10.2); Carbon Dioxide 24 mmol/L (22-30); Chloride 108 mmol/L (98-107); Glucose 111 mg/dL (74-99); Magnesium 1.2 mg/dL (1.6-2.3); Non-African American GFR(CKD) 76 (>60 ml/min/1.73 sqM); Sodium 141 mmol/L (137-145); Total Bilirubin 0.3 mg/dL (0.2-1.3); Total Protein 6.4 g/dL (6.3-8.2)
--- NOTE | 2024-06-03 04:14 | XR ---
EXAM: XR Chest, 1 View CLINICAL HISTORY: ITS.REASON XR Reason: Weakness TECHNIQUE: Frontal view of the chest. COMPARISON: No relevant prior studies available. FINDINGS: Lungs: No consolidation or mass. Pleural space: No acute findings. Heart: cardiomegaly. Bones/joints: No acute findings. IMPRESSION: No acute cardiopulmonary process.
--- NOTE | 2024-06-03 04:16 | XR ---
EXAM: XR Pelvis, 1 or 2 Views CLINICAL HISTORY: ITS.REASON XR Reason: fall, pain TECHNIQUE: Frontal view of the pelvis. COMPARISON: No relevant prior studies available. FINDINGS: Bones/joints: No acute fracture. No dislocation. Soft tissues: Unremarkable. IMPRESSION: No acute findings.
[2024-06-03] MEDS: CYCLOBENZAPRINE 5 MG TAB PO STA (04:17)
[2024-06-03] MEDS: LIDOCAINE 4% PATCH TOPICAL ONE (04:18)
[2024-06-03] MEDS: KETOROLAC 15 MG/ML 1 ML VIAL IVP STA (04:19)
--- NOTE | 2024-06-03 04:20 | CT ---
EXAM: CT Lumbar Spine Without Intravenous Contrast CLINICAL HISTORY: ITS.REASON CT Reason: fall, pain TECHNIQUE: Axial computed tomography images of the lumbar spine without intravenous contrast. CTDI is 37.4 mGy and DLP is 1473.4 mGy-cm. This CT exam was performed using one or more of the following dose reduction techniques: automated exposure control, adjustment of the mA and/or kV according to patient size, and/or use of iterative reconstruction technique. COMPARISON: No relevant prior studies available. FINDINGS: Extensive postop changes and multilevel fusion. Levoscoliosis. No obvious acute findings. IMPRESSION: Extensive postop changes and multilevel fusion. Levoscoliosis. No obvious acute findings. If there are further concerns consider MRI
[2024-06-03] MEDS: methylPREDNISolone SOD SUCCI 125 MG/2 ML VIAL IV STA (05:30)
[2024-06-03] MEDS: MAGNESIUM SULFATE-D5W PMX 1 GM in DEXTROSE/WATER 1 100ML.BAG IVPB ONE (05:30)
[2024-06-03 06:09] VITALS: BP 114/73; PULSE 99; RESP 16
== END 2024-06-03 07:06 | disposition home or self-care (01) ==
LOC: EC 02:17
DX: M54.50 Low back pain, unspecified (principal); F41.9 Anxiety disorder, unspecified; E83.42 Hypomagnesemia; Z91.018 Allergy to other foods; Z91.040 Latex allergy status; Z91.048 Other nonmedicinal substance allergy status; W19.XXXA Unspecified fall, initial encounter
CPT/HCPCS: 36415; 93005; 80053; 83605; 83735; 84484; 85025; 72170; 71045; 72131; 70450; 99285; 96365; 96366; 96375; 96361; J2060; J3475; J1885; J2919